=== PATIENT | male | born 1940 | race Caucasian/White ===

== ENCOUNTER 2017-12-23 11:26 | Inpatient (IN) | payer MEDICARE, MEDICAID ==
[2017-12-23 11:33] VITALS: BMI 22.6
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
[2017-12-23 12:30] LABS: BASO # 0.02 K/mm3 (0.0-2.0); BASO % 0.3 % (0.0-3.0); EOS # 0.1 (0.0-0.7); EOS % 1.7 % (1.5-5.0); GRAN # 4.34 (1.4-6.5); GRAN % 72.7 % (50.0-68.0); HEMOGLOBIN 7.5 g/dL (14.0-18.0); LYMPH % 17.3 % (22.0-35.0); MEAN CELL VOLUME 91.2 fl (80.0-105.0); MEAN CORPUSCULAR HEMOGLOBIN 28.8 pg (25.0-35.0); MEAN CORPUSCULAR HGB CONC 31.6 g/dl (31.0-37.0); MEAN PLATELET VOLUME 9.9 fl (7.0-11.0); MONO # 0.5 (0.1-0.6); RBC 2.6 10^6/uL (3.5-6.1); RED CELL DISTRIBUTION WIDTH 14.9 % (11.5-14.5)
--- NOTE | 2017-12-23 12:34 | RAD ---
HISTORY: medical clearance COMPARISON: 05/08/2016 FINDINGS: LUNGS: There is a chronic interstitial infiltrate at the left lung base PLEURA: No significant pleural effusion identified, no pneumothorax apparent. CARDIOVASCULAR: Normal. OSSEOUS STRUCTURES: The right 3rd rib is absent. This could be surgical. Clinical correlation is suggested. If there is no history of surgery a destructive lesion would be the etiology. VISUALIZED UPPER ABDOMEN: Normal. OTHER FINDINGS: None. IMPRESSION: Chronic interstitial infiltrate at the left lung base. Absence of the right 3rd rib. See comment
[2017-12-23 12:39] LABS: ALB/GLOB RATIO 0.8 (1.1-1.8); ALBUMIN 4.1 g/dL (3.0-4.8); ALT/SGPT 21 U/L (7-56); AST/SGOT 28 U/L (17-59); BLOOD UREA NITROGEN 34 mg/dL (7-21); CALCIUM 10.5 mg/dL (8.4-10.5); GFR AFRICAN-AMERICAN > 60; GFR NON-AFRICAN AMERICAN > 60
[2017-12-23 12:46] LABS: ACETAMINOPHEN < 10.0 ug/ml (10.0-20.0); SALICYLATE < 1 mg/dL (2.0-20.0)
[2017-12-23 12:57] LABS: B-TYPE NATRIURETIC PEPTIDE 971 pg/mL (0-450)
--- NOTE | 2017-12-23 12:59 | CT ---
PROCEDURE: CT HEAD WITHOUT CONTRAST. HISTORY: confusion COMPARISON: CT 05/08/2016 TECHNIQUE: Axial computed tomography images were obtained through the head/brain without intravenous contrast. Radiation dose: Total exam DLP = 873 mGy-cm. This CT exam was performed using one or more of the following dose reduction techniques: Automated exposure control, adjustment of the mA and/or kV according to patient size, and/or use of iterative reconstruction technique. FINDINGS: HEMORRHAGE: No intracranial hemorrhage. BRAIN: No mass effect or edema. There is encephalomalacia in the right occipital lobe and right frontal lobe. No acute findings VENTRICLES: Unremarkable. No hydrocephalus. CALVARIUM: There is bony destruction on the right side of the clivus at the level of the foramen magnum. This is best seen on image 2 of series 3. Small well-defined lytic lesions are seen in the skull bilaterally. Findings are consistent with metastatic disease or myeloma. The patient also had a chest x-ray which showed destruction of the right 3rd rib. PARANASAL SINUSES: Unremarkable as visualized. No significant inflammatory changes. MASTOID AIR CELLS: Unremarkable as visualized. No inflammatory changes. OTHER FINDINGS: None. IMPRESSION: Lytic lesions in the skull consistent with metastatic disease or myeloma. The largest lesion is seen on the right side of the foramen magnum. No acute intracranial findings
[2017-12-23 14:07] LABS: URINE BILIRUBIN NEGATIVE (NEGATIVE); URINE BLOOD NEGATIVE (NEGATIVE); URINE GLUCOSE (UA) NEGATIVE (NEGATIVE); URINE LEUKOCYTE ESTERASE NEGATIVE Leu/uL (NEGATIVE); URINE PROTEIN 30 mg/dL (<30 mg/dL); URINE UROBILINOGEN 0.2 E.U./dL (<1 E.U./dL)
[2017-12-23 14:12] LABS: URINE APPEARANCE CLOUDY (CLEAR); URINE COLOR YELLOW (YELLOW)
[2017-12-23 14:16] LABS: URINE BACTERIA TRACE (NEG); URINE EPITHELIAL CELLS 0 - 2 /hpf (0-5); URINE RBC NEGATIVE /hpf (0-2); URINE WBC 0 - 2 /hpf (0-6)
[2017-12-23 14:17] LABS: URINE COARSE GRANULAR CAST TRACE /hpf (0-2)
[2017-12-23 14:28] LABS: BARBITURATES, UR NEGATIVE (NEGATIVE); BENZODIAZEPINES, UR NEGATIVE (NEGATIVE); OPIATES, UR NEGATIVE (NEGATIVE); PHENCYCLIDINE, UR NEGATIVE (NEGATIVE)
[2017-12-23] MEDS ORDERED: Fluticasone Nasal 50 mcg/Spray NS PRN (17:37)
[2017-12-23] MEDS: cefTRIAXone 1 gm 1 GM/100 ML BAG IVPB SCH (18:37)
[2017-12-23] MEDS: Azithromycin 500MG/NS 250ml 500 MG/250 ML BAG IVPB SCH (19:16)
--- NOTE | 2017-12-23 20:50 | CARD ---
APPROVED REPORT EKG Measurement Heart [id number] <Conclusion> Atrial fibrillation with a competing junctional pacemaker Right bundle branch block Abnormal ECG
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
[2017-12-23] MEDS: Insulin Reg-HIGH-Coverage SC SCH (23:54)
[2017-12-24 07:41] LABS: HEMOGLOBIN 9.2 g/dL (14.0-18.0); MEAN CELL VOLUME 90.7 fl (80.0-105.0); MEAN CORPUSCULAR HEMOGLOBIN 29.4 pg (25.0-35.0); MEAN CORPUSCULAR HGB CONC 32.4 g/dl (31.0-37.0); MEAN PLATELET VOLUME 10.3 fl (7.0-11.0); RBC 3.13 10^6/uL (3.5-6.1); WHITE BLOOD COUNT 4.6 10^3/ul (4.5-11.0)
[2017-12-24] MEDS: Metoprolol Succinate 100 mg XL Tab PO SCH (07:44)
[2017-12-24] MEDS: Insulin Reg-HIGH-Coverage SC SCH ×4 (07:46→22:52)
[2017-12-24 07:55] LABS: ALB/GLOB RATIO 0.8 (1.1-1.8); ALBUMIN 3.7 g/dL (3.0-4.8); ALT/SGPT 23 U/L (7-56); AST/SGOT 27 U/L (17-59); BLOOD UREA NITROGEN 29 mg/dL (7-21); CALCIUM 10.2 mg/dL (8.4-10.5); GFR AFRICAN-AMERICAN > 60; GFR NON-AFRICAN AMERICAN > 60
[2017-12-24] MEDS: cefTRIAXone 1 gm 1 GM/100 ML BAG IVPB SCH (09:12)
[2017-12-24] MEDS: Azithromycin 500MG/NS 250ml 500 MG/250 ML BAG IVPB SCH (10:04)
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
[2017-12-24 12:23] LABS: IRON 65 ug/dL (45-180)
[2017-12-24 12:27] LABS: IMMUNOGLOBULIN G 581.8 mg/dL (700.0-1600.0); IMMUNOGLOBULIN M 43.2 mg/dL (40.0-230.0)
[2017-12-24 12:32] LABS: % IRON SATURATION 23 % (20-55); TOTAL IRON BINDING CAPACITY 277 ug/dL (261-462)
--- NOTE | 2017-12-24 13:38 | PN ---
DATE: ONCOLOGY EVALUATION SUBJECTIVE: This is a 77-year-old man with altered mental status and lytic lesions in his clavicle and CAT scan of his skull as well as third rib erosion. The issue here is most likely prostate cancer versus multiple myeloma with 2 treatable lesions. At this point, I have ordered laboratory tests to rule out multiple myeloma to rule out prostate cancer. Pending bone marrow biopsy on him and further treatments. I did a blood test today . Rolando Wilhelm MD
--- NOTE | 2017-12-24 14:10 | PN ---
DATE: SUBJECTIVE: I saw him this morning with the nurse. The nurse told me his right shoulder has been bothering him. When I saw him this morning, he had no right shoulder pain, he slept well, he is hungry. He is presently confused. He came in with dementia, trying to get to the psychiatric unit, but he had an anemia of 7.5. We transfused him. I called in GI and also the CAT scan of the head showed possible metastasis from multiple myeloma. I called the Hematology/Oncology before bringing him to the Psych floor. PHYSICAL EXAMINATION: VITAL SIGNS: He has 97.8 temperature, 85 pulse, 141/60 blood pressure, 20 respiratory rate. GENERAL: He is alert in bed, comfortable, no pain at this time. He slept fairly well. HEENT: Head is atraumatic, normocephalic. Throat is moist. NECK: Supple. HEART: Regular rate. LUNGS: Decreased breath sounds, but clear. No coughing. ABDOMEN: Soft. EXTREMITIES: No edema. MEDICATIONS: He is currently on Aricept, aspirin, Colace, Flonase, Glucophage, insulin, Keppra, Lipitor, Neurontin, Norvasc, Risperdal, Rocephin, Toprol, Zestril, and Zithromax. LABORATORY DATA: He has a white count of 4.6, hemoglobin is 9.2, hematocrit, 28.4, platelets of 288. Chemistries, 148 sodium, potassium 4.1, BUN 29, creatinine 1.1, GFR is greater than 60, sugar is 94, calcium is 10.2, total bili is 0.3, AST is 27, ALT is 23 and alkaline phosphatase is 150. His urine was clear. His toxicology was fine. ASSESSMENT AND PLAN: There was no consults yet. There are orders for GI for the anemia, Hematology/Oncology for the metastasis and skull metastasis, multiple myeloma issues, Pulmonary for a possible pneumonia. He is on medications for that, all this before he might go to Psychiatry floor. I will wait and see what the Psychiatry says on the hospital side. Continue aggressive treatment and care of Raudel Simmons, trying him out of bed to chair, get him some physical therapy in the meantime. We will check his labs. Jerzy Walsh DO [facility] # [id number]
[2017-12-24 15:32] LABS: IMMUNOGLOBULIN A > 800.0 mg/dL (70.0-400.0)
--- NOTE | 2017-12-24 15:41 | NM ---
PROCEDURE: Whole Body Bone Scan HISTORY: Metastatic disease. COMPARISON: None available. TECHNIQUE: Following administration of 27.5 miCu of Tc MDP multiplanar whole body images were obtained. FINDINGS: Evidence for bony metastatic disease: Bilateral ribs and solitary focus in the left iliac bone anteriorly. Multiple punctate foci of abnormal accumulation radionuclide in the calvarium better visualized on recent CT scan. Upper thoracic, lower cervical spine abnormalities also identified. Questionable abnormalities both proximal humeri. Degenerative uptake: Bilateral shoulders Physiologic uptake: Normal physiologic activity in the kidneys. Other findings: None. IMPRESSION: Evidence osseous metastatic disease calvarium, ribs, left iliac bone. Suspicious findings lower cervical upper thoracic spine. Additional suspicious findings in proximal humeri bilaterally.
--- NOTE | 2017-12-24 15:56 | CON ---
DATE: 12/24/2017 PULMONARY CONSULTATION REASON FOR CONSULTATION: Abnormal chest x-ray. REFERRING PHYSICIAN: Jerzy Walsh DO HISTORY OF PRESENT ILLNESS: History is obtained via extensive discussion with the night nurse. I have also discussed the case with the patient at length, and reviewed the chart at length. The patient is a 77-year-old male, chronically ill, with past medical history significant for coronary artery disease, status post cardiac stents, chronic atrial fibrillation, cerebrovascular accident in the past, Alzheimer's dementia, diabetes mellitus, who presents to [facility] - [facility] - for increasing confusion and altered behavior. Apparently, the patient did exhibit aggressive behavior at the [facility]. He was thus admitted for additional evaluation. Again, I did discuss the case with the night nurse at length. There is no history of shortness of breath at rest, dyspnea on exertion, cough, or sputum production. There is also no history of chest pain, coughing up of blood, or chest pain - made worse with deep respirations. There is no history of temperatures, chills or infectious exposure. There is no history of night sweats, weight loss or appetite change prior to the above events. No history of calf pains. No history of syncope or diaphoresis. No history of recent travel or trauma. REVIEW OF SYSTEMS: No history of nausea, vomiting or diarrhea. No acute urinary symptoms. No new musculoskeletal complaints. Rest of the review of systems is negative. ALLERGIES: CIPROFLOXACIN. SOCIAL HISTORY: Positive for tobacco and negative for alcohol. FAMILY HISTORY: No inheritable diseases. HOME MEDICATIONS: Include Vasotec, Tylenol, Lantus, Percocet, Flonase, Risperdal, Toprol, Glucophage, Keppra, Neurontin, Aricept, Colace, Lipitor, and Norvasc. PHYSICAL EXAMINATION GENERAL: The patient appears comfortable at rest. He is not short of breath. He seems awake and alert. VITAL SIGNS: Temperature is 97.8, pulse is 85, respirations 18, blood pressure 141/60. Oxygen saturation on room air is 96%-97%. HEENT: Normocephalic, atraumatic. No JVD. CARDIOVASCULAR: Positive S1, S2. No S3 gallop. LUNGS: Clear bilaterally. EXTREMITIES: No clubbing, cyanosis or edema. Calves are nontender to palpation. GI: Abdomen is soft, nontender and nondistended. Bowel sounds are positive. SKIN: No acute rash. NEUROLOGIC: Limited at the present time. PERTINENT LABORATORY DATA: Chest x-ray was done yesterday and reviewed. There is a small patchy infiltrate noted at the left base. However, this infiltrate was noted on the film of 05/08/2016. CBC: White count 6.0K, hemoglobin 7.5, hematocrit 23.7, platelets of 343,000. Complete metabolic profile: BUN 34, glucose 124, alkaline phosphatase 167. B-type natriuretic peptide 971. Total protein 9.0. Rest of the metabolic profiles within normal limits. CAT scan of the head was also done. The report was reviewed. There are lytic lesions in the skull consistent with metastatic disease or myeloma. There are no acute intracranial findings. IMPRESSION: 1. Encephalopathy. 2. Severe anemia. 3. Rule out multiple myeloma. 4. Abnormal chest x-ray, rule out pneumonia, left lower lobe. 5. Atrial fibrillation. 6. Coronary artery disease. PLAN: The patient presents to [facility] - [facility] - with increasing confusion and aggressive behavior. The patient was thus admitted for additional evaluation. I did review the chest x-ray as above. The chest x-ray does show a small patchy left lower lobe infiltrate. However, again, this infiltrate was seen on the chest x-ray in 2016. In addition, there is no history of significant pulmonary symptoms. Again, I did discuss the case with the night nurse at length. The night nurse also does not note any shortness of breath or cough for this patient-- during his shift. The patient has been started on antibiotic therapy. I have ordered a stat procalcitonin - to try and discern whether we are dealing with an acute pneumonia or not. Consultations for Gastroenterology and Hematology have been ordered. Severe anemia is noted. There is a question of multiple myeloma - given the above CAT scan of the head. The clinical status of this patient is certainly guarded at this point in time. Additional pulmonary intervention will be based on the above results, as well as the clinical status of the patient. I will discuss the above with Dr. Walsh this morning. Thank you very much for this pulmonary consultation. Jose Leroy MD MTDRad[facility]
[2017-12-24 17:38] LABS: FOLATE 8.2 ng/mL
--- NOTE | 2017-12-25 00:39 | CON ---
DATE: HISTORY OF PRESENT ILLNESS: The patient is a 77-year-old male. The patient is a resident of [facility]. The patient was transferred here to the hospital for evaluation of altered mental status and psychosis. The patient had history of dementia. Psych consult was called for evaluation of paranoia as well as agitated behavior. The patient was seen and examined today. The patient is Vietnamese speaking and this ad copy writer utilized nursing staff for translation. The patient presented to be alert. The patient does not know what hospital he is in. The patient does not know what is the day today. The patient reported that he was transferred here because he was combative. When was asked why he was combative, the patient said that custodial staff is killing people as well as stealing money from them. There is no evidence for that fact. Most likely, the patient is paranoid and delusional. The patient denied history of mental illness, but the patient had one admission in [address] Salazar's service for psychosis and dementia. The patient was on BuSpar as well as Neurontin and Risperdal 0.25 mg twice a day. MEDICATIONS: Reviewed. Norvasc, aspirin, Lipitor. The patient is on azithromycin, ceftriaxone, Colace, Aricept 5 mg at the nighttime, Flonase, Neurontin, Humulin, Keppra 500 mg twice a day, lisinopril, Glucophage, Toprol, Risperdal 0.5 mg twice a day which will be increased to 3 times a day. LABORATORY DATA: Reviewed. Hemoglobin and hematocrit are 9.2 and 28. Chemistry reviewed, chloride 109, BUN 29 which is high. Urinalysis showed granular cast trace, ketone trace and urine protein high. Toxicology reviewed, negative for any substances. Immunoglobulin G is 581, which is low. CT scan of the head was done in the emergency room which showed metastatic disease or myeloma; the largest lesion seen on the right side of the foramen magnum. Chest x-ray was within normal limits. Electrocardiogram was within normal limits. MENTAL STATUS EXAMINATION: The patient presented to be alert, verbal, Vietnamese-speaking. The patient described his mood as, "okay. I'm fine. I want to go home. I am able to pay my bills and I have home health aide." Affect was irritable. Thought process circumstantial. Thought content, the patient was obviously paranoid. The patient was making statements such as staff in custodial killing people and stealing from them. There is no evidence for that. The patient denied thoughts of harming himself or others. Denies intent or plan. There is no behavioral disturbances. IMPRESSION: Most likely the patient is in delirium stage which is related to the medical issues. On top of that, the patient was diagnosed with dementia with behavioral disturbances and psychotic symptoms. PLAN: Continue current management. Continue current medications. This ad copy writer increased the dose of Risperdal to three times a day. The patient has public guardian who needs to be informed about all possible procedures. Meanwhile, continue current medications. We will follow up and advise accordingly. Thank you very much for letting me participate in care of your patient. Shantell Villarreal MD
--- NOTE | 2017-12-25 01:59 | CON ---
HISTORY OF PRESENT ILLNESS: This is a 77-year-old [place], who was brought here because he was combative, confused, and has dementia and called to evaluate the patient. Patient was sitting comfortably on the chair, not agitated at the movement. Patient was also given 2 units of PRBC transfusions and tolerated the solid food. PAST MEDICAL HISTORY: Dementia, stroke, and acute anemia. ALLERGIES: ALLERGIC TO CIPROFLOXACIN. REVIEW OF SYSTEMS: Patient was confused, agitated at times. PHYSICAL EXAMINATION: VITAL SIGNS: Blood pressure 128/59. HEENT: Normocephalic, atraumatic. NECK: Supple. NEUROLOGIC: Awake, oriented to self, confused. Pupils reactive. No facial asymmetry. Tongue midline. Motor examination: Spontaneous movement of the extremities noted. Deep tendon reflexes 1+. Both plantars downgoing. LABORATORY DATA: WBC 4.6, hemoglobin 9.2, hematocrit 28.4, platelets 288. Sodium 148, potassium 4.1, chloride 109, CO2 of 25, glucose 94, BUN 29, creatinine 1.1. IMPRESSION: This is a 77-year-old male with acute anemia and also lytic metastatic lesion on the head and no lesions in the brain and workup in progress and continue present management. We will follow up. Salvador Wang MD
[2017-12-25 07:25] LABS: HEMOGLOBIN 9.4 g/dL (14.0-18.0); MEAN CELL VOLUME 89.8 fl (80.0-105.0); MEAN CORPUSCULAR HEMOGLOBIN 29.2 pg (25.0-35.0); MEAN CORPUSCULAR HGB CONC 32.5 g/dl (31.0-37.0); MEAN PLATELET VOLUME 10.5 fl (7.0-11.0); RBC 3.22 10^6/uL (3.5-6.1)
[2017-12-25 07:34] LABS: ALB/GLOB RATIO 0.8 (1.1-1.8); ALBUMIN 3.6 g/dL (3.0-4.8); ALT/SGPT 25 U/L (7-56); AST/SGOT 26 U/L (17-59); BLOOD UREA NITROGEN 27 mg/dL (7-21); CALCIUM 10.2 mg/dL (8.4-10.5); GFR AFRICAN-AMERICAN > 60; GFR NON-AFRICAN AMERICAN > 60
[2017-12-25] MEDS: Insulin Reg-HIGH-Coverage SC SCH (08:01)
--- NOTE | 2017-12-25 08:14 | CP.PCM.PN ---
<SavannahdarryndereckCody - Last Filed: 12/25/17 08:59> Subjective - Date & Time of Evaluation Date of Evaluation: 12/25/17 Time of Evaluation: 07:30 - Subjective Subjective: PGY5 GI Fellow Progress Note Patient seen and examined bedside this morning. The patient was sleeping on arrival to the bedside and is drowsy but arousable. He will not follow any commands at this time and does not participate in conversation/answer questions in Yoruba or Irish. No events overnight per nursing staff. 12 system ROS performed and negative except where stated. Objective - Vital Signs/Intake and Output Vital Signs (last 24 hours): Temp Pulse Resp BP Pulse Ox 98.3 F 56 L 18 125/98 H 96 12/24/17 22:00 12/24/17 22:00 12/24/17 22:00 12/24/17 22:00 12/24/17 22:00 Intake and Output: 12/25/17 12/25/17 06:59 18:59 Intake Total 660 Output Total 800 Balance -140 - Medications Medications: Current Medications Amlodipine Besylate (Norvasc) 10 mg PO DAILY [facility] Last Admin: 12/24/17 09:19 Dose: 10 mg Aspirin (Aspirin Chewable) 81 mg PO DAILY [facility] Last Admin: 12/24/17 09:18 Dose: 81 mg Atorvastatin Calcium (Lipitor) 40 mg PO DIN [facility] Last Admin: 12/24/17 18:53 Dose: 40 mg Azithromycin (Zithromax) 500 mg PO DAILY [facility] Docusate Sodium (Colace) 200 mg PO DAILY [facility] Last Admin: 12/24/17 09:18 Dose: 200 mg Donepezil HCl (Aricept) 5 mg PO HS [facility] Last Admin: 12/24/17 21:23 Dose: 5 mg Fluticasone Propionate (Flonase) 1 actuation NS BID PRN PRN Reason: Cough and congestion Gabapentin (Neurontin) 300 mg PO HS [facility] PRN Reason: Protocol Last Admin: 12/24/17 21:23 Dose: 300 mg Ceftriaxone Sodium (Rocephin 1 Gram Ivpb) 1 gm in 100 mls @ 100 mls/hr IVPB DAILY [facility] PRN Reason: Protocol Stop: 12/27/17 10:59 Last Admin: 12/24/17 09:12 Dose: 100 mls/hr Insulin Human Regular (Humulin R High) 0 units SC ACHS [facility] PRN Reason: Protocol Last Admin: 12/25/17 08:01 Dose: Not Given Levetiracetam (Keppra) 500 mg PO BID [facility] Last Admin: 12/24/17 18:53 Dose: 500 mg Lisinopril (Zestril) 10 mg PO DAILY [facility] Last Admin: 12/24/17 09:19 Dose: 10 mg Metformin HCl (Glucophage) 500 mg PO DAILY [facility] Last Admin: 12/24/17 09:18 Dose: 500 mg Metoprolol Succinate (Toprol Xl) 100 mg PO BRK [facility] Last Admin: 12/24/17 07:44 Dose: 100 mg Risperidone (Risperdal Tab) 0.5 mg PO BID LONG PRN Reason: Protocol Last Admin: 12/24/17 18:54 Dose: 0.5 mg Risperidone (Risperdal Tab) 0.5 mg PO HS [facility] PRN Reason: Protocol - Labs Labs: 12/25/17 07:00 12/25/17 07:00 - Constitutional Appears: Non-toxic, No Acute Distress, Chronically Ill - Eye Exam Eye Exam: PERRL - ENT Exam ENT Exam: Mucous Membranes Dry - Respiratory Exam Respiratory Exam: Clear to Ausculation Bilateral. absent: Rales, Rhonchi, Wheezes - Cardiovascular Exam Cardiovascular Exam: RRR, +S1, +S2 - GI/Abdominal Exam GI & Abdominal Exam: Soft, Normal Bowel Sounds. absent: Distended, Firm, Guarding, Rigid, Tenderness, Organomegaly - Extremities Exam Extremities Exam: Normal Inspection. absent: Pedal Edema - Neurological Exam Neurological Exam: Altered - Psychiatric Exam Psychiatric exam: Flat Affect - Skin Skin Exam: Dry, Warm Assessment and Plan - Assessment and Plan (Free Text) Assessment: Patient is a 77yo male with PMHx significant for Alzheimer's dementia, CAD, prior CVA who presented to the hospital for altered mentation. Our service was consulted for anemia. -Anemia -Delirium with underlying dementia -Lytic bone lesions with concern for underlying malignancy - ongoing w/u for multiple myeloma/prostate cancer Plan: -Ongoing work up with oncology service for multiple myeloma, prostate cancer given previous findings of multiple lytic bone lesions -If identified, underlying malignancy such as MM could be etiology of anemia -No evidence of active GI blood loss and no indication at this time for urgent endoscopic evaluation -If all work up unremarkable, consider EGD/colonoscopy outpatient if consent obtained from responsible republican -Monitor CBC -Diet as tolerated Discussed with Dr Sebastian <Shaun Sebastian - Last Filed: 12/25/17 09:42> Objective - Vital Signs/Intake and Output Vital Signs (last 24 hours): Temp Pulse Resp BP Pulse Ox 98.3 F 59 L 18 134/58 L 96 12/24/17 22:00 12/25/17 08:38 12/24/17 22:00 12/25/17 08:38 12/24/17 22:00 Intake and Output: 12/25/17 12/25/17 06:59 18:59 Intake Total 660 Output Total 800 Balance -140 - Medications Medications: Current Medications Amlodipine Besylate (Norvasc) 10 mg PO DAILY [facility] Last Admin: 12/24/17 09:19 Dose: 10 mg Aspirin (Aspirin Chewable) 81 mg PO DAILY [facility] Last Admin: 12/24/17 09:18 Dose: 81 mg Atorvastatin Calcium (Lipitor) 40 mg PO DIN [facility] Last Admin: 12/24/17 18:53 Dose: 40 mg Azithromycin (Zithromax) 500 mg PO DAILY [facility] Docusate Sodium (Colace) 200 mg PO DAILY [facility] Last Admin: 12/24/17 09:18 Dose: 200 mg Donepezil HCl (Aricept) 5 mg PO HS [facility] Last Admin: 12/24/17 21:23 Dose: 5 mg Fluticasone Propionate (Flonase) 1 actuation NS BID PRN PRN Reason: Cough and congestion Gabapentin (Neurontin) 300 mg PO HS [facility] PRN Reason: Protocol Last Admin: 12/24/17 21:23 Dose: 300 mg Insulin Human Regular (Humulin R High) 0 units SC [facility] PRN Reason: Protocol Last Admin: 12/25/17 08:01 Dose: Not Given Levetiracetam (Keppra) 500 mg PO BID [facility] Last Admin: 12/24/17 18:53 Dose: 500 mg Lisinopril (Zestril) 10 mg PO DAILY [facility] Last Admin: 12/24/17 09:19 Dose: 10 mg Metformin HCl (Glucophage) 500 mg PO DAILY [facility] Last Admin: 12/24/17 09:18 Dose: 500 mg Metoprolol Succinate (Toprol Xl) 100 mg PO BRK [facility] Last Admin: 12/25/17 08:38 Dose: 100 mg Risperidone (Risperdal Tab) 0.5 mg PO BID LONG PRN Reason: Protocol Last Admin: 12/24/17 18:54 Dose: 0.5 mg Risperidone (Risperdal Tab) 0.5 mg PO HS [facility] PRN Reason: Protocol - Labs Labs: 12/25/17 07:00 12/25/17 07:00 Attending/Attestation - Attestation I have personally seen and examined this patient.: Yes I have fully participated in the care of the patient.: Yes I have reviewed all pertinent clinical information, including history, physical exam and plan: Yes Notes (Text): 12/25/17 09:41 77 year old male with h/o Dementia, CVA, CAd admitted with altered mental status , found to have anemia and evidence of bony metastasis. Eval for malignancy underway per Heme/Onc. Hgb stable without evidence of active bleeding at this time. Supportive care. Will monitor for now.
--- NOTE | 2017-12-25 08:36 | PN ---
DATE: 12/25/2017 SUBJECTIVE: The patient appears comfortable this morning. He is not short of breath at rest. PHYSICAL EXAMINATION: VITAL SIGNS: (Last noted in the computer): Temperature is 98.3, pulse 56, respirations 18, blood pressure 125/98. Oxygen saturation on room air is 96%-100%. HEENT: Normocephalic, atraumatic. NECK: No JVD. CARDIOVASCULAR: Positive S1, S2. No S3 gallop. LUNGS: Clear bilaterally. EXTREMITIES: No clubbing, cyanosis or edema. Calves are nontender to palpation. GI: Abdomen is soft, nontender and nondistended. Bowel sounds are positive. SKIN: No acute rash. NEUROLOGIC: Exam limited at the present time. PERTINENT LABORATORY DATA: Procalcitonin was done yesterday, it is negative-0.08. IMPRESSION: 1. Encephalopathy-improved. 2. Severe anemia. 3. Rule out multiple myeloma. 4. Rule out pneumonia left lower lobe-less likely. 5. Atrial fibrillation. 6. Coronary artery disease. PLAN: The patient appears comfortable this morning. He is not short of breath at rest. He does state to feeling better overall. I did discuss the case with the night nurse at length. The night nurse stated that he thinks the patient is less confused. Input by Neurology is noted. I did review the laboratory data-as above. There is a negative procalcitonin noted. In addition, there is no history of temperatures. There is no leukocytosis. We can probably shorten the antibiotic course at this point in time. Inputs by Psychiatry and GI are also noted. Clinical status of the patient appears somewhat improved-compared to the initial hospital status. However, his future status/prognosis remains very guarded. I will discuss the above with Dr. Walsh. <Jose Leroy MD> [email or web address]
[2017-12-25] MEDS: Metoprolol Succinate 100 mg XL Tab PO SCH (08:38)
--- NOTE | 2017-12-25 10:49 | CP.PCM.CON ---
<Amy Sam - Last Filed: 12/25/17 10:49> History of Present Illness - History of Present Illness History of Present Illness: 77 y/o male seen at bedside with attending Dr. Scherer for right foot painful hallux toenail. Pt is unable to give true HPI due to AMS. He indicates that it hurts him when he walks and hurts to touch the nail. States his feet are also very dry and he wants some cream. Has no other pedal complaints at time of visit. Per chart, (-) F/C/N/V/CP/SOB Review of Systems - Review of Systems All systems: reviewed and no additional remarkable complaints except (per HPI) Past Patient History - Infectious Disease Hx of Infectious Diseases: None - Past Medical History & Family History Past Medical History?: Yes - Past Social History Smoking Status: Never Smoked - CARDIAC Other/Comment: cabg - PULMONARY Hx Tuberculosis: No - NEUROLOGICAL Hx Alzheimer's Disease: Yes HX Cerebrovascular Accident: Yes Hx Dementia: Yes - HEENT Hx HEENT Problems: No - RENAL Hx Chronic Kidney Disease: No - ENDOCRINE/METABOLIC Hx Endocrine Disorders: Yes Hx Diabetes Mellitus Type 1: Yes - HEMATOLOGICAL/ONCOLOGICAL Hx Cancer: No - INTEGUMENTARY Hx Dermatological Problems: No - MUSCULOSKELETAL/RHEUMATOLOGICAL Hx Arthritis: Yes Hx Falls: Yes - GASTROINTESTINAL Hx Gastrointestinal Disorders: Yes - GENITOURINARY/GYNECOLOGICAL Hx Sexually Transmitted Disorders: No - PSYCHIATRIC Hx Psychosis: Yes - SURGICAL HISTORY Hx Surgeries: Yes Hx Coronary Stent: Yes - ANESTHESIA Hx Anesthesia: Yes Hx Anesthesia Reactions: No Hx Malignant Hyperthermia: No Meds Home Medications: Home Medication List Medication Instructions Recorded Confirmed Type Azithromycin [Zithromax] 500 mg PO DAILY 5 Days #5 tab 12/25/17 Rx Allergies/Adverse Reactions: Allergies Allergy/AdvReac Type Severity Reaction Status Date / Time ciprofloxacin AdvReac RASH Verified 12/23/17 11:33 - Medications Medications: Current Medications Amlodipine Besylate (Norvasc) 10 mg PO DAILY [facility] Last Admin: 12/24/17 09:19 Dose: 10 mg Aspirin (Aspirin Chewable) 81 mg PO DAILY [facility] Last Admin: 12/24/17 09:18 Dose: 81 mg Atorvastatin Calcium (Lipitor) 40 mg PO DIN [facility] Last Admin: 12/24/17 18:53 Dose: 40 mg Azithromycin (Zithromax) 500 mg PO DAILY [facility] Docusate Sodium (Colace) 200 mg PO DAILY [facility] Last Admin: 12/24/17 09:18 Dose: 200 mg Donepezil HCl (Aricept) 5 mg PO HS [facility] Last Admin: 12/24/17 21:23 Dose: 5 mg Fluticasone Propionate (Flonase) 1 actuation NS BID PRN PRN Reason: Cough and congestion Gabapentin (Neurontin) 300 mg PO HS [facility] PRN Reason: Protocol Last Admin: 12/24/17 21:23 Dose: 300 mg Insulin Human Regular (Humulin R High) 0 units SC ACHS [facility] PRN Reason: Protocol Last Admin: 12/25/17 08:01 Dose: Not Given Levetiracetam (Keppra) 500 mg PO BID [facility] Last Admin: 12/24/17 18:53 Dose: 500 mg Lisinopril (Zestril) 10 mg PO DAILY [facility] Last Admin: 12/24/17 09:19 Dose: 10 mg Metformin HCl (Glucophage) 500 mg PO DAILY [facility] Last Admin: 12/24/17 09:18 Dose: 500 mg Metoprolol Succinate (Toprol Xl) 100 mg PO BRK [facility] Last Admin: 12/25/17 08:38 Dose: 100 mg Risperidone (Risperdal Tab) 0.5 mg PO BID [facility] PRN Reason: Protocol Last Admin: 12/24/17 18:54 Dose: 0.5 mg Risperidone (Risperdal Tab) 0.5 mg PO HS [facility] PRN Reason: Protocol Physical Exam - Constitutional Appears: Well, Non-toxic, No Acute Distress - Extremities Exam Additional comments: Lower extremity focused examination: Vasc: DP/PT pulses palpable 2/4. Temperature gradient warm to cool from proximal to distal. CFT < 3 sec to all digits. No pedal edema Neuro: Protective sensation grossly intact Derm: Thickened dystrophic toenail noted to R hallux with onycholysis noted to proximal and lateral nail borders. Tinea pedis noted to bilateral plantar feet. No open lesions, no erythema, no maceration, no ecchymosis Ortho: Moderate tenderness to palpation of R hallux toenail - Neurological Exam Neurological exam: Alert, Altered - Psychiatric Exam Psychiatric exam: Normal Affect, Normal Mood Results - Vital Signs Recent Vital Signs: Last Vital Signs Temp 98.6 F 12/25/17 08:00 Pulse 59 L 12/25/17 08:38 Resp 18 12/25/17 08:00 BP 134/58 L 12/25/17 08:38 Pulse Ox 100 12/25/17 08:00 - Labs Result Diagrams: 12/25/17 07:00 12/25/17 07:00 Labs: Laboratory Results - last 24 hr 12/24/17 12/24/17 12/24/17 07:00 09:00 09:00 WBC RBC Hgb Hct MCV MCH MCHC RDW Plt Count MPV Sodium Potassium Chloride Carbon Dioxide Anion Gap BUN Creatinine Est GFR ( Amer) Est GFR (Non-Af Amer) POC Glucose (mg/dL) Random Glucose Calcium Iron TIBC % Saturation Total Bilirubin AST ALT Alkaline Phosphatase Total Protein Albumin Globulin Albumin/Globulin Ratio Lqil-2-Hvjybgyvylzua 4.80 H Vitamin B12 Folate Procalcitonin 0.08 L IgG 581.8 L IgA > 800.0 H IgM 43.2 12/24/17 12/24/17 12/24/17 09:00 09:00 11:34 WBC RBC Hgb Hct MCV MCH MCHC RDW Plt Count MPV Sodium Potassium Chloride Carbon Dioxide Anion Gap BUN Creatinine Est GFR ( Amer) Est GFR (Non-Af Amer) POC Glucose (mg/dL) 143 H Random Glucose Calcium Iron 65 TIBC 277 % Saturation 23 Total Bilirubin AST ALT Alkaline Phosphatase Total Protein Albumin Globulin Albumin/Globulin Ratio Jwlo-4-Rwsdlyceweqib Vitamin B12 831 Folate 8.2 Procalcitonin IgG IgA IgM 12/24/17 12/24/17 12/25/17 16:09 21:50 07:00 WBC 5.0 RBC 3.22 L Hgb 9.4 L Hct 28.9 L MCV 89.8 MCH 29.2 MCHC 32.5 RDW 15.0 H Plt Count 294 MPV 10.5 Sodium Potassium Chloride Carbon Dioxide Anion Gap BUN Creatinine Est GFR ( Amer) Est GFR (Non-Af Amer) POC Glucose (mg/dL) 99 122 H Random Glucose Calcium Iron TIBC % Saturation Total Bilirubin AST ALT Alkaline Phosphatase Total Protein Albumin Globulin Albumin/Globulin Ratio Rucj-4-Mtikfndygkpzp Vitamin B12 Folate Procalcitonin IgG IgA IgM 12/25/17 07:00 WBC RBC Hgb Hct MCV MCH MCHC RDW Plt Count MPV Sodium 147 Potassium 4.0 Chloride 109 H Carbon Dioxide 26 Anion Gap 16 BUN 27 H Creatinine 1.1 Est GFR ( Amer) > 60 Est GFR (Non-Af Amer) > 60 POC Glucose (mg/dL) Random Glucose 89 Calcium 10.2 Iron TIBC % Saturation Total Bilirubin 0.3 AST 26 ALT 25 Alkaline Phosphatase 161 H Total Protein 8.4 H Albumin 3.6 Globulin 4.7 Albumin/Globulin Ratio 0.8 L Efdo-0-Rlhqdzrbfthtv Vitamin B12 Folate Procalcitonin IgG IgA IgM Assessment & Plan - Assessment and Plan (Free Text) Assessment: 77 y/o male with 1) painful tinea unguium to R hallux nail and 2) bilateral tinea pedis Plan: Pt seen and evaluated with Dr. Scherer Aseptic debridement of R hallux toenail with sterile nippers Pt tolerated procedure without incident Rx Lotrimin cream to be applied to B/L feet daily Podiatry to sign off at this time Thank you for this consult <Jennifer Scherer - Last Filed: 12/26/17 15:56> Results - Vital Signs Recent Vital Signs: Last Vital Signs Temp 98 F 12/25/17 14:00 Pulse 58 L 12/25/17 14:00 Resp 20 12/25/17 14:00 BP 99/49 L 12/25/17 14:00 Pulse Ox 97 12/25/17 14:00 - Labs Result Diagrams: 12/25/17 07:00 12/25/17 07:00 Labs: Laboratory Results - last 24 hr 12/25/17 12/25/17 06:48 11:06 POC Glucose (mg/dL) 89 145 H Attending/Attestation - Attestation I have personally seen and examined this patient.: Yes I have fully participated in the care of the patient.: Yes I have reviewed all pertinent clinical information: Yes Notes (Text): 12/26/17 15:55 I have seen and evaluated this patient; was present for the procedure with the resident; have reviewed and agree with resident note
[2017-12-25 16:07] VITALS: BP 99/49; PULSE 58; RESP 20; TEMP 98; O2SAT 97
--- NOTE | 2017-12-25 23:02 | PN ---
DATE: SUBJECTIVE: The patient was admitted on the medical side for change in mental status. Consultation was called for evaluation of medications and possible med management. The patient was initially seen yesterday. Please see initial consultation note for more detailed information. This radio news writer increased the dose of Risperdal to three times a day yesterday. As per collateral information from the nursing staff, the patient does not exceeded any aggressive or agitated behavior. The patient is compliant with the medication. The patient was able to eat independently. The patient is pleasant and cooperative. At times, the patient have paranoid ideation, but for example yesterday, the patient had impression that the staff was stealing money from the patient in the shelter. There is no evidence for that. The patient was less paranoid today during the conversation. PHYSICAL EXAMINATION: VITAL SIGNS: Reviewed. LABORATORY DATA: Reviewed. MEDICATIONS: Reviewed. Discussed with the attending, Dr. Walsh today. As per Dr. Walsh, the patient most likely will be medically cleared and transferred back to the nursing facility. There is no contraindication for that. MENTAL STATUS EXAMINATION: The patient was sleepy, easily arousable. The patient is Kinyarwanda speaking. This radio news writer utilized nursing staff for translation. The patient knows that he is in the hospital, but does not remember what is the name of the hospital, aware of the circumstances of his admission. The patient denied feeling anxious, reported feeling upset over the fact that he lives in the shelter. The patient was asking, if it is possible for him to go to the apartment where he used to live. This radio news writer tried her best to explain that it is not an option. At this point, questionable understanding. Of note, the patient has public legal guardian. The patient has no capacity to make decision for himself. Thought process was circumstantial and tangential. Thought content, the patient denied visual, auditory, tactile hallucinations, but patient is mildly paranoid. Insight and judgment seems to be limited. Impulses are well controlled. This radio news writer will and the patient does not exhibit any aggression or agitation, did not require any p.r.n. medications. 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 Most likely, this is combination of 2 factors. PLAN: The patient does not meet the criteria for psychiatric inpatient admission. Mental status is improving. The patient needs to continue on Risperdal three times a day. The patient needs to be followed up with Psychiatry and the shelter facility within 72 hours in case of the worsening of the symptoms. The patient should be transferred back to the hospital. Meanwhile, the patient did not exhibit any aggressive or agitated behavior. At present moment, there was no imminent danger to self or others. The patient was able to eat independently. This radio news writer will sign off. Should you have any questions, give me a call back. Thank you very much for letting me participate in the care of your patient. Shantell Villarreal MD : 12/25/2017 17:28:29
--- NOTE | 2017-12-26 05:13 | DS ---
HISTORY OF PRESENT ILLNESS: He is doing well enough that he can be discharged. 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 He will be followed up in the outpatient with Hematology/Oncology. He is on Aricept, aspirin, Colace, Flonase, Glucophage, insulin, Keppra, Lipitor, Neurontin, Norvasc, Risperdal, Toprol, Zestril, Zithromax. I discussed this with Psychiatry that I do not want him . He is okay as per GI to be discharged, and Oncology said he could be discharged back to his facility. PHYSICAL EXAMINATION: VITAL SIGNS: He has a 98.6 temperature, 59 pulse, 134/58 blood pressure, 18 respiratory rate, and 100% sat on room air. HEENT: Head is atraumatic, normocephalic. HEART: Regular rate. LUNGS: Clear to auscultation. ABDOMEN: Soft. EXTREMITIES: No edema. GENERAL: He is calm. LABORATORY DATA: He has 5 white count, 9.4 hemoglobin, 20.9 hematocrit with 294 platelets. He has 147 sodium, potassium is 4, BUN 27, creatinine 1.1, GFR is greater than 60, sugar is 89, calcium 10.2, total bili is 0.3, AST is 26, ALT is 25, alkaline phosphatase is 161, total protein is 8.4. ASSESSMENT AND PLAN: He is having metastatic bone disease with dementia either from prostate cancer versus multiple myeloma. He has anemia. He was transfused. He was seen by multiple physicians. I am hoping he will do very well. Jerzy Walsh DO MTDRadha
== END 2017-12-25 16:30 | DRG 840 ==
LOC: ED 11:26 → ERH 15:11 → 5RSO 17:23
PROVIDERS: ADMIT Family Medicine; ATTEND Family Medicine
PROC: 30233N1 Transfusion of Nonautologous Red Blood Cells into Peripheral Vein, Percutaneous Approach (ICD-10-PCS; principal; 2017-12-23)
PROC: 0HBRXZZ Excision of Toe Nail, External Approach (ICD-10-PCS; 2017-12-25)
DX: C90.00 Multiple myeloma not having achieved remission (principal); C61 Malignant neoplasm of prostate; D64.9 Anemia, unspecified; G93.40 Encephalopathy, unspecified; F02.81 Dementia in other diseases classified elsewhere, unspecified severity, with behavioral disturbance; I25.10 Atherosclerotic heart disease of native coronary artery without angina pectoris; G30.9 Alzheimer's disease, unspecified; I48.2 Chronic atrial fibrillation; E11.9 Type 2 diabetes mellitus without complications; K59.00 Constipation, unspecified; F25.9 Schizoaffective disorder, unspecified; B35.3 Tinea pedis; B35.1 Tinea unguium; M19.90 Unspecified osteoarthritis, unspecified site; Z86.73 Personal history of transient ischemic attack (TIA), and cerebral infarction without residual deficits; Z95.5 Presence of coronary angioplasty implant and graft; Z95.1 Presence of aortocoronary bypass graft

== ENCOUNTER 2018-03-12 20:41 | Inpatient (IN) | payer MEDICARE, MEDICAID ==
--- NOTE | 2018-03-12 20:48 | ED PDOC ---
Arrival/HPI - General Time Seen by Provider: 03/12/18 20:43 Historian: Patient - History of Present Illness Narrative History of Present Illness (Text): 03/12/18 20:48 Raudel Simmons is a 77 year old male, whose past medical history includes atrial fibrillation, CABG, CAD with coronary stents, Alzheimer's disease, CVA, diabetes, arthritis, and schizoaffective disorder, who presents to the Emergency department sent from shelter for evaluation of lethargy today. Limited HPI and ROS secondary to patient's dementia. Symptom Onset: Gradual Symptom Course: Unchanged Activities at Onset: Light Context: Home Past Medical History - Provider Review Nursing Documentation Reviewed: Yes - Past History Past History: No Previous - Infectious Disease Hx of Infectious Diseases: None - Reproductive Currently Lactating: No - Cardiac Other/Comment: cabg - Pulmonary Hx Tuberculosis: No - Neurological Hx Alzheimer's Disease: Yes HX Cerebrovascular Accident: Yes Hx Dementia: Yes - HEENT Hx HEENT Disorder: No - Renal Hx Renal Disorder: No - Endocrine/Metabolic Hx Endocrine Disorders: Yes Hx Diabetes Mellitus Type 1: Yes - Hematological/Oncological Hx Cancer: No - Integumentary Hx Dermatological Disorder: No - Musculoskeletal/Rheumatological Hx Arthritis: Yes Hx Falls: Yes - Gastrointestinal Hx Gastrointestinal Disorders: Yes - Genitourinary/Gynecological Hx Sexually Transmitted Diseases: No - Psychiatric Hx Psychosis: Yes Hx Substance Use: No (Question) - Surgical History Hx Coronary Stent: Yes - Anesthesia Hx Anesthesia: Yes Hx Anesthesia Reactions: No Hx Malignant Hyperthermia: No - Suicidal Assessment Feels Threatened In Home Enviroment: No Family/Social History - Physician Review Nursing Documentation Reviewed: Yes Family/Social History: Unknown Family HX Smoking Status: Never Smoked Hx Alcohol Use: Yes Hx Substance Use: No (Question) Hx Substance Use Treatment: No Allergies/Home Meds Allergies/Adverse Reactions: Allergies ciprofloxacin Adverse Reaction (Verified 12/23/17 11:33) RASH Home Medications: Home Meds Medication Instructions Recorded Confirmed Insulin Glargine, Recombina 45 unit SC HS 12/07/15 12/23/17 [Lantus] Aspirin [Aspirin Chewable] 81 mg PO DAILY 05/08/16 12/23/17 Enalapril Maleate [Vasotec] 10 mg PO DAILY 05/08/16 12/23/17 Acetaminophen [Tylenol 325mg tab] 325 mg PO Q4 PRN MDD 100.1 12/23/17 12/23/17 Bisacodyl [Fast Relief Laxative] 10 mg RC PRN PRN 12/23/17 12/23/17 Docusate [Colace] 200 mg PO DAILY 12/23/17 12/23/17 Fluticasone Propionate [Flonase] 1 spr NS BID PRN 12/23/17 12/23/17 Gabapentin [Neurontin] 300 mg PO HS 12/23/17 12/23/17 Magnesium Hydroxide [Milk of 30 ml PO DAILY PRN 12/23/17 12/23/17 Magnesia] Metformin HCl [Glucophage] 500 mg PO DAILY 12/23/17 12/23/17 Multivit-Minerals/Folic Acid 0 mg PO DAILY 12/23/17 12/23/17 [Adult One Daily Multivit Tab] Sod Phos,M-B/Na Phos,Di-Ba [Fleet 0 ml RC PRN PRN 12/23/17 12/23/17 Enema] oxyCODONE/Acetaminophen [Percocet 1 tab PO Q6 PRN 12/23/17 12/23/17 5/325 mg Tab] risperiDONE [RisperDAL Tab] 0.5 mg PO BID 12/23/17 12/23/17 Review of Systems - Review of Systems Systems not reviewed;Unavailable: Dementia Physical Exam Vital Signs Temp Pulse Resp BP Pulse Ox 03/13/18 02:09 70 18 116/70 91 L 03/13/18 00:48 79 20 117/69 93 L 03/13/18 00:11 115/56 L 03/12/18 23:05 76 18 133/49 L 96 03/12/18 22:30 61 18 128/63 95 03/12/18 22:27 62 18 130/60 94 L 03/12/18 20:54 98.3 F 58 L 17 108/58 L 87 L Pain Distress: None Mental Status: Positive for: other (Somnolent but arousable) - Systems Exam Head: Present: Atraumatic, Normocephalic Pupils: Present: PERRL Extroacular Muscles: Present: EOMI Conjunctiva: Present: Normal Mouth: Present: Moist Mucous Membranes Neck: Present: Normal Range of Motion. No: Meningeal Signs, MIDLINE TENDERNESS , Paraspinal Tenderness Respiratory/Chest: Present: Clear to Auscultation, Good Air Exchange. No: Respiratory Distress, Accessory Muscle Use Cardiovascular: Present: Regular Rate and Rhythm, Normal S1, S2. No: Murmurs Abdomen: No: Tenderness, Distention, Peritoneal Signs Upper Extremity: Present: Normal Inspection. No: Cyanosis, Edema Lower Extremity: Present: Normal Inspection. No: Edema Neurological: Present: CN II-XII Intact, Speech Normal, Motor Func Grossly Intact, Normal Sensory Function, Other (Drowsy but arousable) Medical Decision Making ED Course and Treatment: 03/12/18 20:48 Impression: 77 year old male sent from shelter for lethargy. Plan: -- EKG -- Chest X-ray -- Labs, VBG, ABG, cardiac enzymes, blood cultures -- Urinalysis, urine cultures -- Lactated Ringer's -- Reassess and disposition Progress Notes: Reviewed EKG, sinus rhythm at 63 bpm. RBBB. 2nd degree AV block, Mobitz 1. 03/12/18 21:32 Pt currently now awake, verbal, answering questions. 03/12/18 23:41 Chest X-ray reviewed, shows: Lungs: Parenchymal density RIGHT apical region. There is interstitial congestion the RIGHT lower lobe.. No consolidation. Pleural space: Unremarkable. No pneumothorax. Heart: Unremarkable. No cardiomegaly. Mediastinum: Unremarkable. Bones/joints: Sternotomy changes IMPRESSION: 1. RIGHT apical parenchymal density 2. Interstitial congestion RIGHT lower lobe. 3. Status post sternotomy 03/12/18 23:[address] Walsh, who is aware and agrees with plan. Accepts pt in to his service. Pt will be admitted to Telemetry for CHF and pneumonia. Requests Dr. Horton and Dr. Leroy on consult. 03/13/18 01:00 ICU consult obtained given pt's multiple underlying condition and labile hemodynamic status. Pt seen by Dr. Arizmendi, commis chef, agrees pt will be upgraded to the ICU for further management. - Critical Care Critical Care Minutes: 30 minutes - Lab Interpretations Lab Results: 03/12/18 20:55 03/12/18 20:55 Lab Results 03/12/18 22:00: NT-Pro-B Natriuret Pep 7990 H 03/12/18 21:49: Urine Color Yellow, Urine Appearance Sl cloudy, Urine pH 6.0, Ur Specific [place] 1.020, Urine Protein 30 H, Urine Glucose (UA) Negative, Urine Ketones Negative, Urine Blood Negative, Urine Nitrate Negative, Urine Bilirubin Negative, Urine Urobilinogen 0.2, Ur Leukocyte Esterase Negative, Urine RBC Negative, Urine WBC Negative, Ur Epithelial Cells 0 - 2, Amorphous Sediment Moderate, Urine Bacteria Trace 03/12/18 21:13: pCO2 31 L, pO2 57.0 L, HCO3 18.8 L, ABG pH 7.39, ABG Total CO2 19.8 L, ABG O2 Saturation 90.9 L, ABG Base Excess -5.1 L, ABG Potassium 6.2 H*, Sodium 141.0, Chloride 111.0 H, Glucose 180 H, Lactate 2.3 H, FiO2 32.0, Arterial Blood Potassium 6.2 H* 03/12/18 20:55: Sodium 146, Chloride 106, Potassium 6.8 H* D, Carbon Dioxide 20 L, Anion Gap 28 H, BUN 91 H, Creatinine 7.0 H, Est GFR ( Amer) 9, Est GFR (Non-Af Amer) 8, Random Glucose 189 H, Calcium 9.7, Phosphorus 7.9 H, Magnesium 2.0, Total Bilirubin 0.3, AST 49, ALT 41, Alkaline Phosphatase 171 H, Lactate Dehydrogenase 523, Total Creatine Kinase 28 L, Troponin I 0.06, Total Protein 9.1 H, Albumin 4.1, Globulin 5.0, Albumin/Globulin Ratio 0.8 L 03/12/18 20:55: pO2 49, VBG pH 7.30 L, VBG pCO2 42.0, VBG HCO3 20.7 L, VBG Total CO2 22.0, VBG O2 Sat (Calc) 84.7 H, VBG Base Excess -5.5 L, VBG Potassium 6.8 H*, Sodium 141.0, Chloride 109.0 H, Glucose 190 H, Lactate 2.3 H, FiO2 21.0 , Venous Blood Potassium 6.8 H* 03/12/18 20:55: PT 14.9 H, INR 1.30 H, APTT 31.9 03/12/18 20:55: WBC 5.4, RBC 2.50 L, Hgb 7.5 L, Hct 23.3 L, MCV 93.2 D, MCH 30.0, MCHC 32.2, RDW 17.6 H, Plt Count 241, MPV 11.0, Gran % 74.8 H, Lymph % ( Auto) 14.2 L, [place] % (Auto) 10.1 H, Eos % (Auto) 0.7 L, Baso % (Auto) 0.2, Gran # 4.06, Lymph # (Auto) 0.8 L, [place] # (Auto) 0.6, Eos # (Auto) 0.0, Baso # (Auto ) 0.01 I have reviewed the lab results: Yes - RAD Interpretation Radiology Orders: 03/12/18 20:55 CHEST PORTABLE [RAD] Stat Monitoring Manager: Radiologist - EKG Interpretation Interpreted by ED Physician: Yes Type: 12 lead EKG - Medication Orders Current Medication Orders: Vancomycin HCl (Vancomycin 1gm) 1 gm in 250 mls @ 167 mls/hr IVPB DAILY LONG PRN Reason: Protocol Cefepime HCl (Maxipime 1gm) 1 gm in 100 mls @ 100 mls/hr IVPB Q24H LONG PRN Reason: Protocol Pantoprazole Sodium (Protonix Inj) 40 mg IVP DAILY LONG Discontinued Medications Albuterol Sulfate (Albuterol 0.5% Inhal Vanessa (2.5 Mg/0.5 Ml) Ud) 10 mg IH STAT STA Stop: 03/12/18 21:34 Last Admin: 03/12/18 21:40 Dose: 10 mg Dextrose (Dextrose 50% Inj) 50 ml IVP ONCE ONE Stop: 03/12/18 21:34 Last Admin: 03/12/18 21:40 Dose: 50 ml IVP Administration Document 03/12/18 21:40 AD (Rec: 03/12/18 22:11 AD [id number]) Charges for Administration # of IVP Administrations 1 Furosemide (Lasix) 40 mg IVP ONCE ONE Stop: 03/12/18 23:43 Last Admin: 03/13/18 00:11 Dose: 40 mg MAR Blood Pressure Document 03/13/18 00:11 AD (Rec: 03/13/18 00:11 AD [id number]) Blood Pressure Blood Pressure (100/60-150/90 mm Hg) 115/56 IVP Administration Document 03/13/18 00:11 AD (Rec: 03/13/18 00:11 AD [id number]) Charges for Administration # of IVP Administrations 1 Lactated Ringer's 2,310 ml/ IV (SUPPLIES) 2,310 mls @ 4,626.66 mls/hr IV ONCE ONE PRN Reason: 60 ML/KG/HR Stop: 03/12/18 20:58 Last Admin: 03/12/18 21:00 Dose: 4,626.66 mls/hr eMAR Start Stop Document 03/12/18 21:00 AD (Rec: 03/12/18 21:31 AD [id number]) Intravenous Solution Start Date 03/12/18 Start Time 21:00 Cefepime HCl (Maxipime 1gm) 1 gm in 100 mls @ 100 mls/hr IVPB ONCE ONE PRN Reason: Protocol Stop: 03/14/18 00:43 Azithromycin (Zithromax 500mg In Ns) 500 mg in 250 mls @ 166.667 mls/hr IV STAT STA PRN Reason: Protocol Stop: 03/13/18 01:31 Last Admin: 03/13/18 01:17 Dose: 166.667 mls/hr eMAR Start Stop Document 03/13/18 01:17 AD (Rec: 03/13/18 01:17 AD [id number]) Intravenous Solution Start Date 03/13/18 Start Time 01:17 Cefepime HCl (Maxipime 1gm) 1 gm in 100 mls @ 100 mls/hr IVPB ONCE ONE PRN Reason: Protocol Stop: 03/13/18 01:07 Last Admin: 03/13/18 00:22 Dose: 100 mls/hr eMAR Start Stop Document 03/13/18 00:22 AD (Rec: 03/13/18 00:22 AD [id number]) Intravenous Solution Start Date 03/13/18 Start Time 00:22 Insulin Human Regular (Humulin R) 10 units IVP STAT STA Stop: 03/12/18 21:34 Last Admin: 03/12/18 21:40 Dose: 10 u MAR Blood Glucose Document 03/12/18 21:40 AD (Rec: 03/12/18 22:11 AD [id number]) Blood Glucose Finger Stick Blood Glucose (70-120) 196 IVP Administration Document 03/12/18 21:40 AD (Rec: 03/12/18 22:11 AD [id number]) Charges for Administration # of IVP Administrations 1 Sodium Bicarbonate (Sodium Bicarbonate 8.4% (50 Meq) Syringe) 50 meq IVP ONCE ONE Stop: 03/12/18 21:34 Last Admin: 03/12/18 21:40 Dose: 50 meq IVP Administration Document 03/12/18 21:40 AD (Rec: 03/12/18 22:10 AD [id number]) Charges for Administration # of IVP Administrations 1 Sodium Polystyrene Sulfonate (Kayexalate Susp) 30 gm PO ONCE ONE Stop: 03/12/18 21:34 Last Admin: 03/12/18 21:40 Dose: - Scribe Statement The provider has reviewed the documentation as recorded by the Scribrm Partida All medical record entries made by the Scribe were at my direction and personally dictated by me. I have reviewed the chart and agree that the record accurately reflects my personal performance of the history, physical exam, medical decision making, and the department course for this patient. I have also personally directed, reviewed, and agree with the discharge instructions and disposition. Disposition/Present on Arrival - Present on Arrival Any Indicators Present on Arrival: No History of DVT/PE: No History of Uncontrolled Diabetes: No Urinary Catheter: No History Surgical Site Infection Following: None - Disposition Have Diagnosis and Disposition been Completed?: Yes Diagnosis: CHF (congestive heart failure), Pneumonia, Hyperkalemia, Renal failure Disposition: HOSPITALIZED Disposition Time: 23:45 Patient Plan: Admission Patient Problems: Current Active Problems Problem Status Onset CHF (congestive heart failure) Acute Hyperkalemia Acute Pneumonia Acute Renal failure Acute Condition: STABLE
[2018-03-12 21:10] LABS: BASO # 0.01 K/mm3 (0.0-2.0); BASO % 0.2 % (0.0-3.0); EOS % 0.7 % (1.5-5.0); GRAN # 4.06 (1.4-6.5); GRAN % 74.8 % (50.0-68.0); HEMOGLOBIN 7.5 g/dL (14.0-18.0); LYMPH # 0.8 (1.2-3.4); LYMPH % 14.2 % (22.0-35.0); MEAN CELL VOLUME 93.2 fl (80.0-105.0); MEAN CORPUSCULAR HGB CONC 32.2 g/dl (31.0-37.0); MONO # 0.6 (0.1-0.6); MONO % 10.1 % (1.0-6.0); RBC 2.5 10^6/uL (3.5-6.1); RED CELL DISTRIBUTION WIDTH 17.6 % (11.5-14.5); WHITE BLOOD COUNT 5.4 10^3/ul (4.5-11.0)
[2018-03-12 21:12] LABS: VENOUS BLOOD GAS BASE EXCESS -5.5 mmol/L (0.0-2.0); VENOUS BLOOD GAS PO2 49 mm/Hg (30-55)
[2018-03-12 21:16] LABS: ARTERIAL BLOOD GAS HCO3 18.8 mmol/L (21-28); ARTERIAL BLOOD GAS O2 SAT 90.9 % (95-98); ARTERIAL BLOOD GAS PCO2 31 mm/Hg (35-45); ARTERIAL BLOOD GAS PH 7.39 (7.35-7.45); ARTERIAL BLOOD GAS TCO2 19.8 mmol.L (22-28)
[2018-03-12 21:29] LABS: INR 1.3 (0.93-1.08); PROTHROMBIN TIME 14.9 SECONDS (9.4-12.5)
[2018-03-12 21:30] LABS: PARTIAL THROMBOPLASTIN TIME 31.9 Seconds (25.1-36.5); TROPONIN I 0.06 ng/mL
[2018-03-12 21:31] LABS: ALB/GLOB RATIO 0.8 (1.1-1.8); ALBUMIN 4.1 g/dL (3.0-4.8); CALCIUM 9.7 mg/dL (8.4-10.5)
[2018-03-12] MEDS ORDERED: Dextrose 50% SYRINGE Inj (50 ml) IVP ONE (21:33)
[2018-03-12] MEDS ORDERED: Sodium Bicarbonate (8.4%) 50 Meq Syringe IVP ONE (21:33)
[2018-03-12] MEDS ORDERED: Insulin Regular 1 UNITS/0.01 ML ML IVP STA (21:33)
[2018-03-12] MEDS ORDERED: Albuterol 0.5% Inhal Sol (2.5 mg/0.5 ml) UD IH STA (21:33)
[2018-03-12] MEDS ORDERED: Sod Polystyrene Sulf 15 gm/60 ml Susp PO ONE (21:33)
[2018-03-12 21:53] LABS: URINE BILIRUBIN NEGATIVE (NEGATIVE); URINE BLOOD NEGATIVE (NEGATIVE); URINE GLUCOSE (UA) NEGATIVE (NEGATIVE); URINE LEUKOCYTE ESTERASE NEGATIVE Leu/uL (NEGATIVE); URINE PROTEIN 30 mg/dL (<30 mg/dL); URINE UROBILINOGEN 0.2 E.U./dL (<1 E.U./dL)
[2018-03-12 22:06] LABS: URINE APPEARANCE SL CLOUDY (CLEAR); URINE COLOR YELLOW (YELLOW)
[2018-03-12 22:09] LABS: URINE AMORPHOUS SEDIMENT MODERATE; URINE BACTERIA TRACE (NEG); URINE EPITHELIAL CELLS 0 - 2 /hpf (0-5); URINE RBC NEGATIVE /hpf (0-2); URINE WBC NEGATIVE /hpf (0-6)
[2018-03-13] MEDS ORDERED: Azithromycin 500MG/NS 250ml 500 MG/250 ML BAG IV STA (00:02)
[2018-03-13] MEDS ORDERED: Cefepime 1gm in NS 100ml 1 GM/100 ML BAG IVPB ONE ×2 (00:08→23:44)
[2018-03-13 00:34] LABS: VENOUS BLOOD GAS BASE EXCESS -4.6 mmol/L (0.0-2.0); VENOUS BLOOD GAS PO2 44 mm/Hg (30-55); VENOUS BLOOD PH 7.29 (7.32-7.43)
--- NOTE | 2018-03-13 01:23 | CP.PCM.CON ---
<Rodrigue Cisneros - Last Filed: 03/13/18 02:05> History of Present Illness - History of Present Illness History of Present Illness: PGY-1 Critical Care Consult Note for Dr. Arizmendi This is a 77 year old male with PMHx CAD s/p CABG, Alzheimer's disease, psychosis, malignancy with mets to the bone (likely multiple myeloma) who presents from [facility] for lethargy and fluctuating oxygenation saturation per triage note. Patient has advanced dementia and is unable to answer many questions. He is only oriented to person. He came into the ED where he was given 2.5 liters of IV fluids and then diuresed with Lasix. He was also given Albuterol, Kayexcelate, insulin 10 units IV, amp of D50, amp of Bicarb. PMHx: CAD s/p CABG, Alzheimer's disease, psychosis, malignancy with mets to the bone (likely multiple myeloma) PSHx: CABG Allergies: Cipro Social: From [facility]. Has a public guardian. Family Hx: unknown Review of Systems - Review of Systems Systems not reviewed;Unavailable: Dementia Past Patient History - Infectious Disease Hx of Infectious Diseases: None - Past Medical History & Family History Past Medical History?: Yes - Past Social History Smoking Status: Never Smoked - CARDIAC Other/Comment: cabg - PULMONARY Hx Tuberculosis: No - NEUROLOGICAL Hx Alzheimer's Disease: Yes HX Cerebrovascular Accident: Yes Hx Dementia: Yes - HEENT Hx HEENT Problems: No - RENAL Hx Chronic Kidney Disease: No - ENDOCRINE/METABOLIC Hx Endocrine Disorders: Yes Hx Diabetes Mellitus Type 1: Yes - HEMATOLOGICAL/ONCOLOGICAL Hx Cancer: No - INTEGUMENTARY Hx Dermatological Problems: No - MUSCULOSKELETAL/RHEUMATOLOGICAL Hx Arthritis: Yes Hx Falls: Yes - GASTROINTESTINAL Hx Gastrointestinal Disorders: Yes - GENITOURINARY/GYNECOLOGICAL Hx Sexually Transmitted Disorders: No - PSYCHIATRIC Hx Psychosis: Yes Hx Substance Use: No (Question) - SURGICAL HISTORY Hx Coronary Stent: Yes - ANESTHESIA Hx Anesthesia: Yes Hx Anesthesia Reactions: No Hx Malignant Hyperthermia: No Meds Allergies/Adverse Reactions: Allergies Allergy/AdvReac Type Severity Reaction Status Date / Time ciprofloxacin AdvReac RASH Verified 12/23/17 11:33 - Medications Medications: Current Medications Azithromycin (Zithromax 500mg In Ns) 500 mg in 250 mls @ 166.667 mls/hr IV STAT STA PRN Reason: Protocol Stop: 03/13/18 01:31 Last Admin: 03/13/18 01:17 Dose: 166.667 mls/hr Vancomycin HCl (Vancomycin 1gm) 1 gm in 250 mls @ 167 mls/hr IVPB DAILY LONG PRN Reason: Protocol Cefepime HCl (Maxipime 1gm) 1 gm in 100 mls @ 100 mls/hr IVPB Q24H LONG PRN Reason: Protocol Pantoprazole Sodium (Protonix Inj) 40 mg IVP DAILY LONG Physical Exam - Constitutional Appears: No Acute Distress, Chronically Ill - Head Exam Head Exam: ATRAUMATIC, NORMOCEPHALIC - Eye Exam Eye Exam: Normal appearance - ENT Exam ENT Exam: Mucous Membranes Dry - Respiratory Exam Respiratory Exam: Rales (bilateral). absent: Rhonchi, Wheezes - Cardiovascular Exam Cardiovascular Exam: REGULAR RHYTHM, +S1, +S2 - GI/Abdominal Exam GI & Abdominal Exam: Normal Bowel Sounds, Soft. absent: Tenderness - Extremities Exam Extremities exam: Negative for: pedal edema - Neurological Exam Neurological exam: Altered Additional comments: Oriented to person only Difficulty in following directions - Skin Skin Exam: Dry, Warm Results - Vital Signs Recent Vital Signs: Last Vital Signs Temp 98.3 F 03/12/18 20:54 Pulse 79 03/13/18 00:48 Resp 20 03/13/18 00:48 BP 117/69 03/13/18 00:48 Pulse Ox 93 L 03/13/18 00:48 - Labs Result Diagrams: 03/12/18 20:55 03/13/18 01:15 Labs: Laboratory Results - last 24 hr 03/13/18 00:21 pO2 44 VBG pH 7.29 L VBG pCO2 46.0 VBG HCO3 22.1 VBG Total CO2 23.5 VBG O2 Sat (Calc) 79.0 H VBG Base Excess -4.6 L VBG Potassium 5.5 H Sodium 142.0 Chloride 110.0 H Glucose 93 Lactate 2.2 H FiO2 21.0 Venous Blood Potassium 5.5 H Assessment & Plan - Assessment and Plan (Free Text) Assessment: This is a 77 year old male with PMHx CAD s/p CABG, Alzheimer's disease, psychosis, malignancy with mets to the bone (likely multiple myeloma) who presents from [facility] for lethargy and fluctuating oxygenation saturation per triage note. Plan: Neurological -Awake, lethargic, demented, intermittently verbal -Head CT ordered Cardiology -Monitor for hypotension -was given 2.5 liters of fluids in the ED -was given Lasix 40 mg IV in the ED. Another 40 mg was ordered. Pulmonology -Maintain oxygenation with nasal cannula and switch to non-rebreather mask prn Gastroenterology -NPO until swallow evaluation -Protonix IVP Renal -acute renal failure -could be due to dehydration vs multiple myeloma amongst other differentials -Nephrology consulted Endocrine -Maintain blood glucose 140-180 Infectious Disease -Given Cefepime and Azithromycin in the ED -Ordered for Vancomycin and Cefepime -procalcitonin ordered Prophylaxis -Protonix -If no bleeding on head CT, will start Heparin SC Discussed with Dr. Kyleigh Cisneros PGY-1 <Kyleigh CEDENO,Domingo - Last Filed: 03/13/18 06:14> Meds - Medications Medications: Current Medications Furosemide (Lasix) 40 mg IVP Q12 LONG Vancomycin HCl (Vancomycin 1gm) 1 gm in 250 mls @ 167 mls/hr IVPB DAILY LONG PRN Reason: Protocol Last Admin: 03/13/18 03:30 Dose: 167 mls/hr Cefepime HCl (Maxipime 1gm) 1 gm in 100 mls @ 100 mls/hr IVPB Q24H LONG PRN Reason: Protocol Pantoprazole Sodium (Protonix Inj) 40 mg IVP DAILY [facility] Results - Vital Signs Recent Vital Signs: Last Vital Signs Temp 98.2 F 03/13/18 04:00 Pulse 66 03/13/18 03:45 Resp 20 03/13/18 03:45 BP 122/48 L 03/13/18 03:45 Pulse Ox 92 L 03/13/18 03:15 - Labs Result Diagrams: 03/12/18 20:55 03/13/18 01:15 Labs: Laboratory Results - last 24 hr 03/13/18 03/13/18 03/13/18 00:21 01:15 05:00 pCO2 34 L pO2 44 106.0 H HCO3 19.7 L ABG pH 7.37 ABG Total CO2 20.7 L ABG O2 Saturation 98.3 H ABG Base Excess -4.8 L ABG Potassium 5.4 H VBG pH 7.29 L VBG pCO2 46.0 VBG HCO3 22.1 VBG Total CO2 23.5 VBG O2 Sat (Calc) 79.0 H VBG Base Excess -4.6 L VBG Potassium 5.5 H Sodium 142.0 148 141.0 Chloride 110.0 H 107 109.0 H Glucose 93 95 Lactate 2.2 H 0.9 FiO2 21.0 100.0 Potassium 5.5 H Carbon Dioxide 22 Anion Gap 24 H BUN 88 H Creatinine 6.7 H Est GFR ( Amer) 10 Est GFR (Non-Af Amer) 8 Random Glucose 102 Calcium 9.4 Arterial Blood Potassium 5.4 H Venous Blood Potassium 5.5 H Attending/Attestation - Attestation I have personally seen and examined this patient.: Yes I have fully participated in the care of the patient.: Yes I have reviewed all pertinent clinical information: Yes Notes (Text): -I agree with the above ICU consult completed by the resident physician with the following additions and/or changes: -The patient is a 77 year old retirement resident with a history of CAD (s/p CABG), severe aortic stenosis (PIEDAD=0.93cm3 per 2013 records), Alzheimer's disease and malignancy (likely multiple myeloma), who was sent to the ED from his retirement due to hypoxia and lethargy. In the ED, initially he was found to be hypotensive (SBP=85) and also persistently hypoxia (O2 sat=85% on 4L NC). CXR shows congestion as well as possible pneumonia. He will be admitted to the ICU for hypoxia (likely due to combination of acute CHF exacerbation and pneumonia), hyperkalemia (treated in ED) and BIPIN/uremia. He will be started on IV Lasix (with holding parameters) as well as empiric IV Cefepime and Vanco. Procalcitonin, corrales-cultures and 2D-echo have been ordered. Strict I/Os will be monitored. Cards, Pulmonary and Nephrology consults have been placed. Critical Care Time Spent: 45-60minutes
[2018-03-13 01:44] LABS: CALCIUM 9.4 mg/dL (8.4-10.5)
[2018-03-13] MEDS: Vancomycin 1gm in NS 250ml 1 GM/250 ML BAG IVPB SCH ×2 (03:30→09:02)
[2018-03-13 04:46] VITALS: BMI 24.8
[2018-03-13 05:16] LABS: ARTERIAL BLOOD GAS HCO3 19.7 mmol/L (21-28); ARTERIAL BLOOD GAS O2 SAT 98.3 % (95-98); ARTERIAL BLOOD GAS PCO2 34 mm/Hg (35-45); ARTERIAL BLOOD GAS PH 7.37 (7.35-7.45); ARTERIAL BLOOD GAS TCO2 20.7 mmol.L (22-28)
[2018-03-13 06:37] LABS: BASO # 0.01 K/mm3 (0.0-2.0); BASO % 0.2 % (0.0-3.0); EOS # 0.1 (0.0-0.7); EOS % 1.7 % (1.5-5.0); GRAN # 3.72 (1.4-6.5); GRAN % 70.7 % (50.0-68.0); HEMOGLOBIN 8.6 g/dL (14.0-18.0); LYMPH # 0.8 (1.2-3.4); MEAN CELL VOLUME 92.7 fl (80.0-105.0); MEAN CORPUSCULAR HEMOGLOBIN 30.1 pg (25.0-35.0); MEAN CORPUSCULAR HGB CONC 32.5 g/dl (31.0-37.0); MONO # 0.7 (0.1-0.6); MONO % 12.4 % (1.0-6.0); RBC 2.86 10^6/uL (3.5-6.1); RED CELL DISTRIBUTION WIDTH 17.4 % (11.5-14.5); WHITE BLOOD COUNT 5.3 10^3/ul (4.5-11.0)
[2018-03-13 07:14] LABS: ALB/GLOB RATIO 0.8 (1.1-1.8); ALBUMIN 4.1 g/dL (3.0-4.8); CALCIUM 9.7 mg/dL (8.4-10.5)
[2018-03-13] MEDS ORDERED: Dextrose 50% SYRINGE Inj (50 ml) IVP ONE ×2 (08:01→22:22)
[2018-03-13] MEDS ORDERED: Insulin Regular 1 UNITS/0.01 ML ML IV ONE (08:15)
[2018-03-13] MEDS ORDERED: Albuterol 0.5% Inhal Sol (2.5 mg/0.5 ml) UD IH ONE (08:30)
--- NOTE | 2018-03-13 09:20 | RAD ---
HISTORY: Sepsis Patient COMPARISON: 12/23/2017 FINDINGS: LUNGS: There is destruction or resection of the right 3rd rib. There is an associated soft tissue mass. This was mentioned previously. There is no prior CT for comparison. Minimal interstitial infiltrate at the right lung base PLEURA: No significant pleural effusion identified, no pneumothorax apparent. CARDIOVASCULAR: Normal. OSSEOUS STRUCTURES: No significant abnormalities. VISUALIZED UPPER ABDOMEN: Normal. OTHER FINDINGS: None. IMPRESSION: There is destruction or resection of the right 3rd rib. There is an associated soft tissue mass. This was mentioned previously. There is no prior CT for comparison. Minimal interstitial infiltrate at the right lung base
--- NOTE | 2018-03-13 09:58 | CT ---
PROCEDURE: CT HEAD WITHOUT CONTRAST. HISTORY: rule out bleed COMPARISON: 12/23/2017 TECHNIQUE: Axial computed tomography images were obtained through the head/brain without intravenous contrast. Radiation dose: Total exam DLP = 936 mGy-cm. This CT exam was performed using one or more of the following dose reduction techniques: Automated exposure control, adjustment of the mA and/or kV according to patient size, and/or use of iterative reconstruction technique. FINDINGS: HEMORRHAGE: No intracranial hemorrhage. BRAIN: Old right posterior cerebral artery distribution infarct. Diffuse mild atrophy as well as chronic periventricular white matter ischemic disease. Right sided basal ganglia lacunar infarcts appear chronic. VENTRICLES: Unremarkable. No hydrocephalus. CALVARIUM: Numerous lytic lesions again identified. PARANASAL SINUSES: Stable 20 millimeter polypoid mass versus mucosal thickening in the sphenoid sinus. MASTOID AIR CELLS: Unremarkable as visualized. No inflammatory changes. OTHER FINDINGS: None. IMPRESSION: No acute hemorrhage.
[2018-03-13] MEDS ORDERED: Dextrose 5%/Lactated Ringer's 1,000 ML IV SCH (10:00)
[2018-03-13] MEDS ORDERED: Lactated Ringer's 1,000 ML IV SCH (10:00)
[2018-03-13] MEDS ORDERED: Sodium Chloride 0.9% 1,000 ML IV STA (10:08)
[2018-03-13] MEDS ORDERED: Sodium Chloride 0.9% 1,000 ML IV SCH (10:15)
--- NOTE | 2018-03-13 10:20 | CP.CCUPN ---
<Antonietta Chu - Last Filed: 03/13/18 11:20> CCU Subjective - Physician Review Subjective (Free Text): 03/13/18 10:20 Overnight, pt keeps taking O2 off per RN, desat. then belligerant and combative requriing wirst restraints. Pt is lethargic, arousable by to noxious stimuli This AM, he was lethargic, open eyes to noxious stimuli CCU Objective - Vital Signs / Intake & Output Vital Signs (Last 4 hours): Vital Signs Pulse Resp BP Pulse Ox 03/13/18 09:01 102/52 L 03/13/18 07:50 66 12 90 L 03/13/18 07:40 66 14 90 L 03/13/18 07:30 71 15 92 L 03/13/18 07:20 76 14 91 L 03/13/18 07:10 66 12 100 03/13/18 07:00 73 14 135/72 100 03/13/18 06:50 73 15 98 03/13/18 06:40 81 25 H 96 03/13/18 06:30 69 13 100 03/13/18 06:20 63 12 100 Intake and Output (Last 8hrs): Intake & Output 03/12/18 03/13/18 03/13/18 22:59 06:59 14:59 Intake Total 2500 Output Total 600 Balance 1900 Weight 149 lb 8 oz Intake: IV 2500 Right Antecubital 2500 Oral 0 Output: Urine 600 Urethral (Go) 600 Other: Voiding Method Indwelling Catheter # Bowel Movements 0 - Physical Exam Head: Positive for: Atraumatic, Normocephalic Pupils: Positive for: PERRL Extroacular Muscles: Positive for: EOMI Conjunctiva: Positive for: Normal Mouth: Positive for: Dry Neck: Positive for: Normal Range of Motion. Negative for: Meningeal Signs, MIDLINE TENDERNESS, Paraspinal Tenderness Respiratory/Chest: Positive for: Good Air Exchange, Decreased Breath Sounds (b/ l lung bases), Rales. Negative for: Respiratory Distress, Accessory Muscle Use Cardiovascular: Positive for: Regular Rate and Rhythm, Normal S1, S2. Negative for: Murmurs Abdomen: Negative for: Tenderness, Distention, Peritoneal Signs Upper Extremity: Positive for: Normal Inspection. Negative for: Cyanosis, Edema Lower Extremity: Positive for: Normal Inspection. Negative for: Edema Neurological: Positive for: Other (Drowsy but arousable to noxious stimuli GCS = 2+3+5) - Medications Active Medications: Active Medications Generic Name Dose Route Start Last Admin Trade Name Farzana PRN Reason Stop Dose Admin Furosemide 40 mg 03/13/18 10:00 03/13/18 09:01 Lasix IVP 40 mg Q12 LONG Administration Vancomycin HCl 1 gm in 250 mls @ 167 mls/hr 03/13/18 01:30 03/13/18 09:02 Vancomycin 1gm IVPB 167 mls/hr DAILY LONG Administration Protocol Cefepime HCl 1 gm in 100 mls @ 100 mls/hr 03/14/18 00:00 Maxipime 1gm IVPB Q24H LONG Protocol Sodium Chloride 1,000 mls @ 999 mls/hr 03/13/18 10:08 Sodium Chloride 0.9% IV 03/13/18 11:08 .Q1H1M STA Sodium Chloride 1,000 mls @ 100 mls/hr 03/13/18 10:15 Sodium Chloride 0.9% IV .Q10H LONG Pantoprazole Sodium 40 mg 03/13/18 10:00 03/13/18 09:01 Protonix Inj IVP 40 mg DAILY LONG Administration - Patient Studies Lab Studies: Lab Studies 03/13/18 03/13/18 03/13/18 Range/Units 06:15 06:15 06:15 WBC 5.3 (4.5-11.0) 10^3/ul RBC 2.86 L (3.5-6.1) 10^6/uL Hgb 8.6 L (14.0-18.0) g/dL Hct 26.5 L (42.0-52.0) % MCV 92.7 (80.0-105.0) fl MCH 30.1 (25.0-35.0) pg MCHC 32.5 (31.0-37.0) g/dl RDW 17.4 H (11.5-14.5) % Plt Count 233 (120.0-450.0) 10^3/uL MPV 12.0 H (7.0-11.0) fl Gran % 70.7 H (50.0-68.0) % Lymph % (Auto) 15.0 L (22.0-35.0) % [place] % (Auto) 12.4 H (1.0-6.0) % Eos % (Auto) 1.7 (1.5-5.0) % Baso % (Auto) 0.2 (0.0-3.0) % Gran # 3.72 (1.4-6.5) Lymph # (Auto) 0.8 L (1.2-3.4) [place] # (Auto) 0.7 H (0.1-0.6) Eos # (Auto) 0.1 (0.0-0.7) Baso # (Auto) 0.01 (0.0-2.0) K/mm3 pCO2 (35-45) mm/Hg pO2 (30-55) mm/Hg HCO3 (21-28) mmol/L ABG pH (7.35-7.45) ABG Total CO2 (22-28) mmol.L ABG O2 Saturation (95-98) % ABG Base Excess (-2.0-3.0) mmol/L ABG Potassium (3.6-5.2) mmol/L VBG pH (7.32-7.43) VBG pCO2 (40-60) VBG HCO3 (21-28) mmol/l VBG Total CO2 (22-28) mmol.L VBG O2 Sat (Calc) (40-65) % VBG Base Excess (0.0-2.0) mmol/L VBG Potassium (3.6-5.2) mmol/L Sodium 149 H (132-148) mmol/L Chloride 107 (98-107) mmol/L Glucose (75-110) mg/dl Lactate (0.7-2.1) mmol/L FiO2 % Potassium 5.7 H* (3.6-5.0) mmol/L Carbon Dioxide 19 L (21-33) mmol/L Anion Gap 28 H (10-20) BUN 92 H (7-21) mg/dL Creatinine 6.9 H (0.8-1.5) mg/dl Est GFR ( Amer) 9 Est GFR (Non-Af Amer) 8 Random Glucose 103 (70-110) mg/dL Calcium 9.7 (8.4-10.5) mg/dL Phosphorus 7.4 H (2.5-4.5) mg/dL Magnesium 1.9 (1.7-2.2) mg/dL Total Bilirubin 0.4 (0.2-1.3) mg/dL AST 150 H D (17-59) U/L ALT 130 H (7-56) U/L Alkaline Phosphatase 178 H (38-126) U/L Total Protein 9.3 H (5.8-8.3) g/dL Albumin 4.1 (3.0-4.8) g/dL Globulin 5.2 gm/dL Albumin/Globulin Ratio 0.8 L (1.1-1.8) TSH 3rd Generation 1.96 (0.46-4.68) mIU/mL Arterial Blood Potassium (3.6-5.2) mmol/L Venous Blood Potassium (3.6-5.2) mmol/L 03/13/18 03/13/18 03/13/18 Range/Units 05:00 01:15 00:21 WBC (4.5-11.0) 10^3/ul RBC (3.5-6.1) 10^6/uL Hgb (14.0-18.0) g/dL Hct (42.0-52.0) % MCV (80.0-105.0) fl MCH (25.0-35.0) pg MCHC (31.0-37.0) g/dl RDW (11.5-14.5) % Plt Count (120.0-450.0) 10^3/uL MPV (7.0-11.0) fl Gran % (50.0-68.0) % Lymph % (Auto) (22.0-35.0) % [place] % (Auto) (1.0-6.0) % Eos % (Auto) (1.5-5.0) % Baso % (Auto) (0.0-3.0) % Gran # (1.4-6.5) Lymph # (Auto) (1.2-3.4) [place] # (Auto) (0.1-0.6) Eos # (Auto) (0.0-0.7) Baso # (Auto) (0.0-2.0) K/mm3 pCO2 34 L (35-45) mm/Hg pO2 106.0 H 44 (30-55) mm/Hg HCO3 19.7 L (21-28) mmol/L ABG pH 7.37 (7.35-7.45) ABG Total CO2 20.7 L (22-28) mmol.L ABG O2 Saturation 98.3 H (95-98) % ABG Base Excess -4.8 L (-2.0-3.0) mmol/L ABG Potassium 5.4 H (3.6-5.2) mmol/L VBG pH 7.29 L (7.32-7.43) VBG pCO2 46.0 (40-60) VBG HCO3 22.1 (21-28) mmol/l VBG Total CO2 23.5 (22-28) mmol.L VBG O2 Sat (Calc) 79.0 H (40-65) % VBG Base Excess -4.6 L (0.0-2.0) mmol/L VBG Potassium 5.5 H (3.6-5.2) mmol/L Sodium 141.0 148 142.0 (132-148) mmol/L Chloride 109.0 H 107 110.0 H (98-107) mmol/L Glucose 95 93 (75-110) mg/dl Lactate 0.9 2.2 H (0.7-2.1) mmol/L FiO2 100.0 21.0 % Potassium 5.5 H (3.6-5.0) mmol/L Carbon Dioxide 22 (21-33) mmol/L Anion Gap 24 H (10-20) BUN 88 H (7-21) mg/dL Creatinine 6.7 H (0.8-1.5) mg/dl Est GFR ( Amer) 10 Est GFR (Non-Af Amer) 8 Random Glucose 102 (70-110) mg/dL Calcium 9.4 (8.4-10.5) mg/dL Phosphorus (2.5-4.5) mg/dL Magnesium (1.7-2.2) mg/dL Total Bilirubin (0.2-1.3) mg/dL AST (17-59) U/L ALT (7-56) U/L Alkaline Phosphatase (38-126) U/L Total Protein (5.8-8.3) g/dL Albumin (3.0-4.8) g/dL Globulin gm/dL Albumin/Globulin Ratio (1.1-1.8) TSH 3rd Generation (0.46-4.68) mIU/mL Arterial Blood Potassium 5.4 H (3.6-5.2) mmol/L Venous Blood Potassium 5.5 H (3.6-5.2) mmol/L Laboratory Results - last 24 hr 03/13/18 03/13/18 03/13/18 00:21 01:15 05:00 WBC RBC Hgb Hct MCV MCH MCHC RDW Plt Count MPV Gran % Lymph % (Auto) [place] % (Auto) Eos % (Auto) Baso % (Auto) Gran # Lymph # (Auto) [place] # (Auto) Eos # (Auto) Baso # (Auto) pCO2 34 L pO2 44 106.0 H HCO3 19.7 L ABG pH 7.37 ABG Total CO2 20.7 L ABG O2 Saturation 98.3 H ABG Base Excess -4.8 L ABG Potassium 5.4 H VBG pH 7.29 L VBG pCO2 46.0 VBG HCO3 22.1 VBG Total CO2 23.5 VBG O2 Sat (Calc) 79.0 H VBG Base Excess -4.6 L VBG Potassium 5.5 H Sodium 142.0 148 141.0 Chloride 110.0 H 107 109.0 H Glucose 93 95 Lactate 2.2 H 0.9 FiO2 21.0 100.0 Potassium 5.5 H Carbon Dioxide 22 Anion Gap 24 H BUN 88 H Creatinine 6.7 H Est GFR ( Amer) 10 Est GFR (Non-Af Amer) 8 Random Glucose 102 Calcium 9.4 Phosphorus Magnesium Total Bilirubin AST ALT Alkaline Phosphatase Total Protein Albumin Globulin Albumin/Globulin Ratio TSH 3rd Generation Arterial Blood Potassium 5.4 H Venous Blood Potassium 5.5 H 03/13/18 03/13/18 03/13/18 06:15 06:15 06:15 WBC 5.3 RBC 2.86 L Hgb 8.6 L Hct 26.5 L MCV 92.7 MCH 30.1 MCHC 32.5 RDW 17.4 H Plt Count 233 MPV 12.0 H Gran % 70.7 H Lymph % (Auto) 15.0 L [place] % (Auto) 12.4 H Eos % (Auto) 1.7 Baso % (Auto) 0.2 Gran # 3.72 Lymph # (Auto) 0.8 L [place] # (Auto) 0.7 H Eos # (Auto) 0.1 Baso # (Auto) 0.01 pCO2 pO2 HCO3 ABG pH ABG Total CO2 ABG O2 Saturation ABG Base Excess ABG Potassium VBG pH VBG pCO2 VBG HCO3 VBG Total CO2 VBG O2 Sat (Calc) VBG Base Excess VBG Potassium Sodium 149 H Chloride 107 Glucose Lactate FiO2 Potassium 5.7 H* Carbon Dioxide 19 L Anion Gap 28 H BUN 92 H Creatinine 6.9 H Est GFR ( Amer) 9 Est GFR (Non-Af Amer) 8 Random Glucose 103 Calcium 9.7 Phosphorus 7.4 H Magnesium 1.9 Total Bilirubin 0.4 AST 150 H D ALT 130 H Alkaline Phosphatase 178 H Total Protein 9.3 H Albumin 4.1 Globulin 5.2 Albumin/Globulin Ratio 0.8 L TSH 3rd Generation 1.96 Arterial Blood Potassium Venous Blood Potassium Fingerstick Blood Sugar Results: 103 Critical Care Progress Note - Nutrition Nutrition: Nutrition Category Date Time Status NPO Diet [DIET] Diets 03/13/18 Dinner Ordered Assessment/Plan - Assessment and Plan (Free Text) Plan: Mr Simmons, 77 year old male, a terrell of state guardianship due to advance dementia, with Hx PMHx CAD s/p CABG, DM, Alzheimer's disease, psychosis, malignancy with mets to the bone (likely multiple myeloma) who presents from [facility] for lethargy and fluctuating oxygenation saturation to 80s on RA. 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 Another 40 mg was ordered. Now, pt clinially look dry IVC (Pending ultrasound machine) NS bolus now, NS@100 Hold lasix for now Pulmonology Duoneb Q6 LONG Continue Venti Mask 100% PaO2/FiO2 = 106 (previously 285) A-A gradient = 713 - 34x1.25 = 670 Last night A-a gradient = 190 Gastroenterology NPO until swallow evaluation Protonix IVP Renal Bladder scan Recheck BMP at 2pm, 10pm Monitor U/O Go Defer to Dr. Ma for BIPIN work up Endocrine Maintain blood glucose 140-180 A1C 8.7 (2016) Infectious Disease Given Cefepime and Azithromycin in the ED Vancomycin 2gm x 1 (one sash installer and one now), Cefepime and Doxycycline (has been given a dose of Zithromax in the ED) Pending blood, sputum cx, PCT, urine Legionella Ag, procalcitonin HEME R rib mass - onc consult per primary Prophylaxis Protonix Heparin SC Dispo planning Per Dr Walsh, hold palliative consult until Friday s/r/d/w Dr Maxwell <Booker Maxwell - Last Filed: 03/13/18 11:33> CCU Objective - Vital Signs / Intake & Output Vital Signs (Last 4 hours): Vital Signs Pulse Resp BP Pulse Ox 03/13/18 09:01 102/52 L 03/13/18 07:50 66 12 90 L 03/13/18 07:40 66 14 90 L 03/13/18 07:30 71 15 92 L Intake and Output (Last 8hrs): Intake & Output 03/12/18 03/13/18 03/13/18 22:59 06:59 14:59 Intake Total 2500 Output Total 600 Balance 1900 Weight 149 lb 8 oz Intake: IV 2500 Right Antecubital 2500 Oral 0 Output: Urine 600 Urethral (Go) 600 Other: Voiding Method Indwelling Catheter # Bowel Movements 0 - Medications Active Medications: Active Medications Generic Name Dose Route Start Last Admin Trade Name Freq PRN Reason Stop Dose Admin Albuterol/Ipratropium 3 ml 03/13/18 14:00 Duoneb 3 Mg/0.5 Mg (3 Ml) Ud IH [id number] LONG Furosemide 40 mg 03/13/18 10:00 03/13/18 09:01 Lasix IVP 40 mg Q12 LONG Administration Heparin Sodium (Porcine) 5,000 units 03/13/18 14:00 Heparin SC Q8 LONG Protocol Cefepime HCl 1 gm in 100 mls @ 100 mls/hr 03/14/18 00:00 Maxipime 1gm IVPB Q24H LONG Protocol Sodium Chloride 1,000 mls @ 100 mls/hr 03/13/18 10:15 Sodium Chloride 0.9% IV .Q10H LONG Doxycycline Hyclate 100 mg/ 100 mls @ 100 mls/hr 03/13/18 22:00 Sodium Chloride IVPB Q12 LONG Protocol Pantoprazole Sodium 40 mg 03/13/18 10:00 03/13/18 09:01 Protonix Inj IVP 40 mg DAILY LONG Administration - Patient Studies Lab Studies: Lab Studies 03/13/18 03/13/18 03/13/18 Range/Units 06:15 06:15 06:15 WBC 5.3 (4.5-11.0) 10^3/ul RBC 2.86 L (3.5-6.1) 10^6/uL Hgb 8.6 L (14.0-18.0) g/dL Hct 26.5 L (42.0-52.0) % MCV 92.7 (80.0-105.0) fl MCH 30.1 (25.0-35.0) pg MCHC 32.5 (31.0-37.0) g/dl RDW 17.4 H (11.5-14.5) % Plt Count 233 (120.0-450.0) 10^3/uL MPV 12.0 H (7.0-11.0) fl Gran % 70.7 H (50.0-68.0) % Lymph % (Auto) 15.0 L (22.0-35.0) % [place] % (Auto) 12.4 H (1.0-6.0) % Eos % (Auto) 1.7 (1.5-5.0) % Baso % (Auto) 0.2 (0.0-3.0) % Gran # 3.72 (1.4-6.5) Lymph # (Auto) 0.8 L (1.2-3.4) [place] # (Auto) 0.7 H (0.1-0.6) Eos # (Auto) 0.1 (0.0-0.7) Baso # (Auto) 0.01 (0.0-2.0) K/mm3 pCO2 (35-45) mm/Hg pO2 (30-55) mm/Hg HCO3 (21-28) mmol/L ABG pH (7.35-7.45) ABG Total CO2 (22-28) mmol.L ABG O2 Saturation (95-98) % ABG Base Excess (-2.0-3.0) mmol/L ABG Potassium (3.6-5.2) mmol/L VBG pH (7.32-7.43) VBG pCO2 (40-60) VBG HCO3 (21-28) mmol/l VBG Total CO2 (22-28) mmol.L VBG O2 Sat (Calc) (40-65) % VBG Base Excess (0.0-2.0) mmol/L VBG Potassium (3.6-5.2) mmol/L Sodium 149 H (132-148) mmol/L Chloride 107 (98-107) mmol/L Glucose (75-110) mg/dl Lactate (0.7-2.1) mmol/L FiO2 % Potassium 5.7 H* (3.6-5.0) mmol/L Carbon Dioxide 19 L (21-33) mmol/L Anion Gap 28 H (10-20) BUN 92 H (7-21) mg/dL Creatinine 6.9 H (0.8-1.5) mg/dl Est GFR ( Amer) 9 Est GFR (Non-Af Amer) 8 Random Glucose 103 (70-110) mg/dL Calcium 9.7 (8.4-10.5) mg/dL Phosphorus 7.4 H (2.5-4.5) mg/dL Magnesium 1.9 (1.7-2.2) mg/dL Total Bilirubin 0.4 (0.2-1.3) mg/dL AST 150 H D (17-59) U/L ALT 130 H (7-56) U/L Alkaline Phosphatase 178 H (38-126) U/L Total Protein 9.3 H (5.8-8.3) g/dL Albumin 4.1 (3.0-4.8) g/dL Globulin 5.2 gm/dL Albumin/Globulin Ratio 0.8 L (1.1-1.8) TSH 3rd Generation 1.96 (0.46-4.68) mIU/mL Arterial Blood Potassium (3.6-5.2) mmol/L Venous Blood Potassium (3.6-5.2) mmol/L 03/13/18 03/13/1818 Range/Units 05:00 01:15 00:21 WBC (4.5-11.0) 10^3/ul RBC (3.5-6.1) 10^6/uL Hgb (14.0-18.0) g/dL Hct (42.0-52.0) % MCV (80.0-105.0) fl MCH (25.0-35.0) pg MCHC (31.0-37.0) g/dl RDW (11.5-14.5) % Plt Count (120.0-450.0) 10^3/uL MPV (7.0-11.0) fl Gran % (50.0-68.0) % Lymph % (Auto) (22.0-35.0) % [place] % (Auto) (1.0-6.0) % Eos % (Auto) (1.5-5.0) % Baso % (Auto) (0.0-3.0) % Gran # (1.4-6.5) Lymph # (Auto) (1.2-3.4) [place] # (Auto) (0.1-0.6) Eos # (Auto) (0.0-0.7) Baso # (Auto) (0.0-2.0) K/mm3 pCO2 34 L (35-45) mm/Hg pO2 106.0 H 44 (30-55) mm/Hg HCO3 19.7 L (21-28) mmol/L ABG pH 7.37 (7.35-7.45) ABG Total CO2 20.7 L (22-28) mmol.L ABG O2 Saturation 98.3 H (95-98) % ABG Base Excess -4.8 L (-2.0-3.0) mmol/L ABG Potassium 5.4 H (3.6-5.2) mmol/L VBG pH 7.29 L (7.32-7.43) VBG pCO2 46.0 (40-60) VBG HCO3 22.1 (21-28) mmol/l VBG Total CO2 23.5 (22-28) mmol.L VBG O2 Sat (Calc) 79.0 H (40-65) % VBG Base Excess -4.6 L (0.0-2.0) mmol/L VBG Potassium 5.5 H (3.6-5.2) mmol/L Sodium 141.0 148 142.0 (132-148) mmol/L Chloride 109.0 H 107 110.0 H (98-107) mmol/L Glucose 95 93 (75-110) mg/dl Lactate 0.9 2.2 H (0.7-2.1) mmol/L FiO2 100.0 21.0 % Potassium 5.5 H (3.6-5.0) mmol/L Carbon Dioxide 22 (21-33) mmol/L Anion Gap 24 H (10-20) BUN 88 H (7-21) mg/dL Creatinine 6.7 H (0.8-1.5) mg/dl Est GFR ( Amer) 10 Est GFR (Non-Af Amer) 8 Random Glucose 102 (70-110) mg/dL Calcium 9.4 (8.4-10.5) mg/dL Phosphorus (2.5-4.5) mg/dL Magnesium (1.7-2.2) mg/dL Total Bilirubin (0.2-1.3) mg/dL AST (17-59) U/L ALT (7-56) U/L Alkaline Phosphatase (38-126) U/L Total Protein (5.8-8.3) g/dL Albumin (3.0-4.8) g/dL Globulin gm/dL Albumin/Globulin Ratio (1.1-1.8) TSH 3rd Generation (0.46-4.68) mIU/mL Arterial Blood Potassium 5.4 H (3.6-5.2) mmol/L Venous Blood Potassium 5.5 H (3.6-5.2) mmol/L Laboratory Results - last 24 hr 03/13/18 03/13/18 03/13/18 00:21 01:15 05:00 WBC RBC Hgb Hct MCV MCH MCHC RDW Plt Count MPV Gran % Lymph % (Auto) [place] % (Auto) Eos % (Auto) Baso % (Auto) Gran # Lymph # (Auto) [place] # (Auto) Eos # (Auto) Baso # (Auto) pCO2 34 L pO2 44 106.0 H HCO3 19.7 L ABG pH 7.37 ABG Total CO2 20.7 L ABG O2 Saturation 98.3 H ABG Base Excess -4.8 L ABG Potassium 5.4 H VBG pH 7.29 L VBG pCO2 46.0 VBG HCO3 22.1 VBG Total CO2 23.5 VBG O2 Sat (Calc) 79.0 H VBG Base Excess -4.6 L VBG Potassium 5.5 H Sodium 142.0 148 141.0 Chloride 110.0 H 107 109.0 H Glucose 93 95 Lactate 2.2 H 0.9 FiO2 21.0 100.0 Potassium 5.5 H Carbon Dioxide 22 Anion Gap 24 H BUN 88 H Creatinine 6.7 H Est GFR ( Amer) 10 Est GFR (Non-Af Amer) 8 Random Glucose 102 Calcium 9.4 Phosphorus Magnesium Total Bilirubin AST ALT Alkaline Phosphatase Total Protein Albumin Globulin Albumin/Globulin Ratio TSH 3rd Generation Arterial Blood Potassium 5.4 H Venous Blood Potassium 5.5 H 03/13/18 03/13/18 03/13/18 06:15 06:15 06:15 WBC 5.3 RBC 2.86 L Hgb 8.6 L Hct 26.5 L MCV 92.7 MCH 30.1 MCHC 32.5 RDW 17.4 H Plt Count 233 MPV 12.0 H Gran % 70.7 H Lymph % (Auto) 15.0 L [place] % (Auto) 12.4 H Eos % (Auto) 1.7 Baso % (Auto) 0.2 Gran # 3.72 Lymph # (Auto) 0.8 L [place] # (Auto) 0.7 H Eos # (Auto) 0.1 Baso # (Auto) 0.01 pCO2 pO2 HCO3 ABG pH ABG Total CO2 ABG O2 Saturation ABG Base Excess ABG Potassium VBG pH VBG pCO2 VBG HCO3 VBG Total CO2 VBG O2 Sat (Calc) VBG Base Excess VBG Potassium Sodium 149 H Chloride 107 Glucose Lactate FiO2 Potassium 5.7 H* Carbon Dioxide 19 L Anion Gap 28 H BUN 92 H Creatinine 6.9 H Est GFR ( Amer) 9 Est GFR (Non-Af Amer) 8 Random Glucose 103 Calcium 9.7 Phosphorus 7.4 H Magnesium 1.9 Total Bilirubin 0.4 AST 150 H D ALT 130 H Alkaline Phosphatase 178 H Total Protein 9.3 H Albumin 4.1 Globulin 5.2 Albumin/Globulin Ratio 0.8 L TSH 3rd Generation 1.96 Arterial Blood Potassium Venous Blood Potassium Critical Care Progress Note - Nutrition Nutrition: Nutrition Category Date Time Status NPO Diet [DIET] Diets 03/13/18 Dinner Ordered Assessment/Plan - Assessment and Plan (Free Text) Plan: Patient seen and examined on rounds with resident, agree with note with following additions/exceptions: Patient is 77yo male with severe dementia, psychosis, ?MM, bone mets, admitted for hypoxia, PNA, renal failure Currently afebrile, BP stable, on VM50%, sat 94% CXR with RLL infiltrate Clinically dry on exam, elevated Cr, hyperkalemia Cardiology following ECHO normal EF PNA Hypoxia Dementia Bone Mets ARF Hyperkalemia Recommend: - supp o2 as needed, goal sat >90% - duonebs PRN - broad spectrum abx, Vanco, Cefepime, Doxy - check Urine Lg, Strep, Procal - Follow up cultures - treat hyperkalemia, D50, Insulin, Calcium Kayex - Renal eval - IVF hydration - Hold diuresis - ECHO - cardiology follow up - GI ppx - DVT ppx - Monitor in MICU Critical care time 35 minutes
[2018-03-13] MEDS ORDERED: Vancomycin 1gm in NS 250ml 1 GM/250 ML BAG IVPB STA (10:21)
--- NOTE | 2018-03-13 10:26 | CP.PCM.CON ---
History of Present Illness - History of Present Illness History of Present Illness: 77 year old male with PMH of severe dementia, psychosis, possible multiple myeloma, CAD S/P CABG came from the [facility] because of lethargy and hypoxia. HPI was taken from ED records and ICU team since there is no family around to give HPI and patient is lethargic. There was no note of fevers, no vomiting, no diarrhea, no convulsions, no loss of consciousness. In the ED, the patient was to be still hypoxic and lethargic and is now in the ICU for closer observation and management. Infectious Diseases consult is requested to further evaluate and manage. Review of Systems - Review of Systems Systems not reviewed;Unavailable: Dementia Past Patient History - Infectious Disease Hx of Infectious Diseases: None - Past Medical History & Family History Past Medical History?: Yes - Past Social History Smoking Status: Never Smoked - CARDIAC Other/Comment: cabg - PULMONARY Hx Tuberculosis: No - NEUROLOGICAL Hx Alzheimer's Disease: Yes HX Cerebrovascular Accident: Yes Hx Dementia: Yes Hx Seizures: Yes - HEENT Hx HEENT Problems: No - RENAL Hx Chronic Kidney Disease: No - ENDOCRINE/METABOLIC Hx Endocrine Disorders: Yes Hx Diabetes Mellitus Type 1: Yes - HEMATOLOGICAL/ONCOLOGICAL Hx Anemia: Yes Hx Cancer: Yes Other/Comment: multiple myeloma? - INTEGUMENTARY Hx Dermatological Problems: No - MUSCULOSKELETAL/RHEUMATOLOGICAL Hx Arthritis: Yes Hx Falls: No - GASTROINTESTINAL Hx Gastrointestinal Disorders: Yes - GENITOURINARY/GYNECOLOGICAL Hx Sexually Transmitted Disorders: No - PSYCHIATRIC Hx Psychosis: Yes - SURGICAL HISTORY Hx Surgeries: Yes Hx Coronary Stent: Yes Other/Comment: cabg - ANESTHESIA Hx Anesthesia: Yes Hx Anesthesia Reactions: No Hx Malignant Hyperthermia: No Meds Allergies/Adverse Reactions: Allergies Allergy/AdvReac Type Severity Reaction Status Date / Time ciprofloxacin AdvReac RASH Verified 12/23/17 11:33 - Medications Medications: Current Medications Furosemide (Lasix) 40 mg IVP Q12 LONG Vancomycin HCl (Vancomycin 1gm) 1 gm in 250 mls @ 167 mls/hr IVPB DAILY LONG PRN Reason: Protocol Last Admin: 03/13/18 03:30 Dose: 167 mls/hr Cefepime HCl (Maxipime 1gm) 1 gm in 100 mls @ 100 mls/hr IVPB Q24H LONG PRN Reason: Protocol Pantoprazole Sodium (Protonix Inj) 40 mg IVP DAILY LONG Physical Exam - Constitutional Appears: Chronically Ill, Other (lethargic but arousable, does not follow commands) - Neck Exam Neck exam: Negative for: Lymphadenopathy, Meningismus - Respiratory Exam Respiratory Exam: Decreased Breath Sounds - Cardiovascular Exam Cardiovascular Exam: +S1, +S2 - GI/Abdominal Exam GI & Abdominal Exam: Soft. absent: Tenderness Results - Vital Signs Recent Vital Signs: Last Vital Signs Temp 98.2 F 03/13/18 04:00 Pulse 66 03/13/18 07:50 Resp 12 03/13/18 07:50 BP 135/72 03/13/18 07:00 Pulse Ox 90 L 03/13/18 07:50 - Labs Result Diagrams: 03/13/18 06:15 03/13/18 06:15 Labs: Laboratory Results - last 24 hr 03/13/18 03/13/18 03/13/18 00:21 01:15 05:00 WBC RBC Hgb Hct MCV MCH MCHC RDW Plt Count MPV Gran % Lymph % (Auto) [place] % (Auto) Eos % (Auto) Baso % (Auto) Gran # Lymph # (Auto) [place] # (Auto) Eos # (Auto) Baso # (Auto) pCO2 34 L pO2 44 106.0 H HCO3 19.7 L ABG pH 7.37 ABG Total CO2 20.7 L ABG O2 Saturation 98.3 H ABG Base Excess -4.8 L ABG Potassium 5.4 H VBG pH 7.29 L VBG pCO2 46.0 VBG HCO3 22.1 VBG Total CO2 23.5 VBG O2 Sat (Calc) 79.0 H VBG Base Excess -4.6 L VBG Potassium 5.5 H Sodium 142.0 148 141.0 Chloride 110.0 H 107 109.0 H Glucose 93 95 Lactate 2.2 H 0.9 FiO2 21.0 100.0 Potassium 5.5 H Carbon Dioxide 22 Anion Gap 24 H BUN 88 H Creatinine 6.7 H Est GFR ( Amer) 10 Est GFR (Non-Af Amer) 8 Random Glucose 102 Calcium 9.4 Phosphorus Magnesium Total Bilirubin AST ALT Alkaline Phosphatase Total Protein Albumin Globulin Albumin/Globulin Ratio TSH 3rd Generation Arterial Blood Potassium 5.4 H Venous Blood Potassium 5.5 H 03/13/18 03/13/18 03/13/18 06:15 06:15 06:15 WBC 5.3 RBC 2.86 L Hgb 8.6 L Hct 26.5 L MCV 92.7 MCH 30.1 MCHC 32.5 RDW 17.4 H Plt Count 233 MPV 12.0 H Gran % 70.7 H Lymph % (Auto) 15.0 L [place] % (Auto) 12.4 H Eos % (Auto) 1.7 Baso % (Auto) 0.2 Gran # 3.72 Lymph # (Auto) 0.8 L [place] # (Auto) 0.7 H Eos # (Auto) 0.1 Baso # (Auto) 0.01 pCO2 pO2 HCO3 ABG pH ABG Total CO2 ABG O2 Saturation ABG Base Excess ABG Potassium VBG pH VBG pCO2 VBG HCO3 VBG Total CO2 VBG O2 Sat (Calc) VBG Base Excess VBG Potassium Sodium 149 H Chloride 107 Glucose Lactate FiO2 Potassium 5.7 H* Carbon Dioxide 19 L Anion Gap 28 H BUN 92 H Creatinine 6.9 H Est GFR ( Amer) 9 Est GFR (Non-Af Amer) 8 Random Glucose 103 Calcium 9.7 Phosphorus 7.4 H Magnesium 1.9 Total Bilirubin 0.4 AST 150 H D ALT 130 H Alkaline Phosphatase 178 H Total Protein 9.3 H Albumin 4.1 Globulin 5.2 Albumin/Globulin Ratio 0.8 L TSH 3rd Generation 1.96 Arterial Blood Potassium Venous Blood Potassium Assessment & Plan - Assessment and Plan (Free Text) Plan: Assessment Lethargy with acute on chronic renal failure R/O severe sepsis due to right sided HCAP severe dementia psychosis possible multiple myeloma CAD S/P CABG Plan Started with Vancomycin 2gm x 1 (one licensed final expense agents and one now), Cefepime and Doxycycline (has been given a dose of Zithromax in the ED) pending blood, sputum cx, PCT, urine Legionella Ag overall prognosis is poor will monitor clinically
[2018-03-13] MEDS: Albuterol-Ipratrop 3 mg / 0.5 (3 ml) UD IH SCH ×2 (13:06→19:43)
--- NOTE | 2018-03-13 15:21 | CON ---
DATE: 03/13/2018 The patient was seen in the past from the skilled nursing. He is now admitted for change in mental status and for probable sepsis. His lab numbers show hemoglobin 7.5, after transfusion 8.6 and pO2 of 57 on admission with a lactic acid level of 2.3. He was also shown to have a BUN on admission of 91 with a creatinine of 7, this is unchanged and phosphorus is 7.9 and mildly elevated liver function test, about 150 AST and ALT 130, alkaline phosphatase 178. The patient on x-ray does have lytic lesions in his bones, it is unclear but right now he is not able to get a bone marrow evaluation. He is being treated for his electrolyte imbalance, renal failure and probable sepsis. Interestingly enough, his total protein is elevated at 9.3 with albumin of 4.1 and globulin of 5.2, so I will order a serum protein electrophoresis etc. to rule out myeloma. I will be away on vacation for one week. Dr. Killian was covering for me. Rolando Wilhelm MD
[2018-03-13 15:32] LABS: BASO # 0.01 K/mm3 (0.0-2.0); BASO % 0.2 % (0.0-3.0); EOS # 0.1 (0.0-0.7); EOS % 1.8 % (1.5-5.0); GRAN # 4.18 (1.4-6.5); GRAN % 73.9 % (50.0-68.0); HEMOGLOBIN 8.4 g/dL (14.0-18.0); LYMPH # 0.7 (1.2-3.4); LYMPH % 13.1 % (22.0-35.0); MEAN CELL VOLUME 93.5 fl (80.0-105.0); MEAN CORPUSCULAR HEMOGLOBIN 30.1 pg (25.0-35.0); MEAN CORPUSCULAR HGB CONC 32.2 g/dl (31.0-37.0); MEAN PLATELET VOLUME 11.4 fl (7.0-11.0); MONO # 0.6 (0.1-0.6); RBC 2.79 10^6/uL (3.5-6.1); RED CELL DISTRIBUTION WIDTH 17.3 % (11.5-14.5); WHITE BLOOD COUNT 5.7 10^3/ul (4.5-11.0)
[2018-03-13 16:07] LABS: ALB/GLOB RATIO 0.7 (1.1-1.8); ALBUMIN 3.8 g/dL (3.0-4.8); CALCIUM 9.5 mg/dL (8.4-10.5); CREATININE,RANDOM URINE 22 mg/dL
--- NOTE | 2018-03-13 16:07 | CON ---
DATE: 03/13/2018 PULMONARY CONSULTATION REASON FOR CONSULTATION: Pneumonia. REFERRING PHYSICIAN: Jerzy Walsh DO HISTORY OF PRESENT ILLNESS: History is obtained via extensive discussion with the night nurse. I have also reviewed the chart at length. The patient is not an adequate historian at this point in time. The patient is a chronically ill 77-year-old male, with past medical history significant for atrial fibrillation, coronary artery disease, status post cardiac stents, status post open heart surgery; Alzheimer's dementia, cerebrovascular accident in the past, diabetes mellitus, probable multiple myeloma (lytic skull lesions seen on previous CAT scan of the head), who presents to [facility] - transferred from the half-way - with increasing lethargy and shortness of breath. In the half-way, the patient was also noted to have a low pulse oximetry. The patient was then transferred to [facility] for additional evaluation. Again, I did discuss the case with the night nurse at length. The patient did present with some shortness of breath. He is not short of breath this morning. There is no history of cough or sputum production. There is no history of chest pain, coughing up of blood, or chest pain - made worse with deep respirations. There is no history of temperatures, chills or infectious exposure. There is no history of night sweats, weight loss or appetite change prior to the above events. No history of calf pains. No history of syncope or diaphoresis. No history of recent travel or trauma. REVIEW OF SYSTEMS: No history of nausea, vomiting or diarrhea. No acute urinary symptoms. Rest of the review of systems is noncontributory. ALLERGIES: CIPROFLOXACIN. SOCIAL HISTORY: Positive for tobacco and negative for alcohol. FAMILY HISTORY: No inheritable diseases. HOME MEDICATIONS: Include Risperdal, Percocet, Keppra, Toprol, Glucophage, Lantus, Flonase, Neurontin, Vasotec, Aricept, Colace, Zithromax, Lipitor, aspirin. PHYSICAL EXAMINATION GENERAL: The patient is not short of breath at the present time. He is lethargic, but arousable. VITAL SIGNS: Temperature is 98.2, pulse 66, respirations 18/20, blood pressure 122/48. Oxygen saturation on non-rebreather mask is 96%. HEENT: Normocephalic, atraumatic. No JVD. CARDIOVASCULAR: Positive S1, S2. Positive S3 gallop. LUNGS: Crackles at both bases are appreciated. No rhonchi. No wheezing. EXTREMITIES: No clubbing, cyanosis or edema. Calves are nontender to palpation. GI: Abdomen is soft, nontender and nondistended. Bowel sounds are positive. SKIN: No acute rash. NEUROLOGIC: Limited at the present time. PERTINENT LABORATORY DATA: Chest x-ray was done and reviewed. I have also reviewed the previous chest x-rays. There is a chronic-appearing opacity in the lateral right upper lobe. The right third rib is missing, and it is presumed that the chronic opacity is due to previous surgery. In addition, the chest x-ray does show a moderate increase in pulmonary vascular congestion. Lastly, there is a small patchy infiltrate at the right base - possibly consistent with pneumonia. CBC: White count 5.3K, hemoglobin 8.6, hematocrit 26.5, platelets of 233,000. Arterial blood gas was done on 100% non-rebreather. Results are pH 7.37, pCO2 of 34, pO2 of 106. Initial arterial blood gas done on 32%. Results are pH 7.39, pCO2 of 31, pO2 of 57. Complete metabolic profile: Potassium 5.5, anion gap 24, BUN 88, creatinine 6.7. Rest of the metabolic profile is within normal limits. B-type natriuretic peptide 7990. IMPRESSION: 1. Acute congestive heart failure. 2. Acute renal insufficiency. 3. Rule out pneumonia - right lower lobe. 4. Hypoxemia. 5. Chronic anemia. 6. Probable multiple myeloma. 7. Encephalopathy. 8. Coronary artery disease. PLAN: Again, I did discuss the case with the night nurse at length. I have also reviewed the chart at length. The patient presents to [facility] - transferred from the half-way - because of increasing lethargy, shortness of breath, and oxygen desaturation for the past 1 day. There are no other pulmonary symptoms reported. I did review the chest x-ray - noted above. There is definite evidence of pulmonary vascular congestion. There is also a possible right lower lobe infiltrate. Lr cultures have been ordered, and will be analyzed when feasible. The patient has been started on antibiotic therapy. Procalcitonin is ordered. On physical exam, there is no significant bronchospasm noted. However, there is a significant alveolar-arterial gradient. I will try decreasing the FiO2 this morning. I will also order aspiration precautions. Consultations with Cardiology and Renal have been ordered. The patient appears critically ill with very guarded prognosis. As above, he is a chronically ill patient with multiple medical problems. I will order a followup chest x-ray and arterial blood gas for tomorrow morning. Additional pulmonary intervention will be based on the above results as well as the clinical status of the patient. I will discuss the above with the entire ICU team in the next few moments. I will also discuss the above with Dr. Walsh. Thank you very much for this pulmonary consultation. Jose Leroy MD MTDD
--- NOTE | 2018-03-13 17:12 | US ---
PROCEDURE: Ultrasound of the Kidneys HISTORY: ARF, Myeloma, R/O hydro, myeloma kidney COMPARISON: None available. TECHNIQUE: Sonogram of the kidneys. FINDINGS: RIGHT KIDNEY: Measures: 5.7 x 6.6 x 12.9 cm. Normal in size, contour and echogenicity. No stone, solid mass lesion or hydronephrosis visualized. LEFT KIDNEY: Measures: 6.6 x 6 x 12.3 cm. Normal in size, contour and echogenicity. No stone, solid mass lesion or hydronephrosis visualized. OTHER FINDINGS: None. IMPRESSION: Unremarkable renal sonogram.
--- NOTE | 2018-03-13 18:04 | CON ---
DATE: 03/13/2018 CARDIOLOGY CONSULTATION HISTORY OF PRESENT ILLNESS: The patient is a 77-year-old male who presented from a [facility] for lethargy. PAST MEDICAL HISTORY: Complicated with a history of chronic atrial fibrillation, history of coronary artery bypass surgery for three-vessel CAD, history of dementia as well as Alzheimer disease, history of CVA, diabetes mellitus as well as a history of schizophrenic disorder. The patient in the ICU, is currently lethargic. No other history is available. PHYSICAL EXAMINATION VITAL SIGNS: Blood pressure is 102/52, the heart rate is in the 60s, atrial fibrillation. NECK: Negative JVD. LUNGS: Bilateral crackles. HEART: Reveals S1 and S2. EXTREMITIES: Without edema. LABORATORY DATA: Hemoglobin is 8.6. Chemistries: BUN and creatinine is 92 over 6.9 with a potassium of 5.7. Liver enzymes are mildly elevated, ProBNP is 7990. Preliminary echocardiogram reveals good LV function with dilated LA and RA. IMPRESSION: 1. Lethargy. 2. Anemia. 3. History of coronary artery bypass surgery. 4. Preserved left ventricular function. 5. Renal insufficiency with a prerenal component. 6. Dementia. 7. Schizophrenic disorder. 8. Coronary artery disease. PLAN: Given these findings, I agree with a trial of IV fluids. We will need to rule out sepsis. His acute renal insufficiency is likely the cause of his current lethargy. We will review his echocardiogram. Rusty Horton MD
--- NOTE | 2018-03-13 20:45 | HP ---
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 I was called to the emergency room to visit Raudel Simmons who comes from [facility], who is lethargic, nonverbal at this time. He has a past medical history being 77-year-old white male with history of AFib, CABG, CAD, coronary stents, Alzheimer's, CVA, diabetes, arthritis, schizoaffective disorder, multiple myeloma with bone mets and is now lethargic, nonverbal in the intensive care unit. He has had a CABG before, he had CVA. He has dementia, diabetes, arthritis, falls, psychosis, coronary stents. FAMILY HISTORY: Unknown. SOCIAL HISTORY: Never smoked, alcohol, not sure about substance abuse. ALLERGIES: CIPRO. MEDICATIONS: He is on insulin, aspirin, Vasotec, laxatives, Colace, Flonase, Neurontin, magnesium, Glucophage, multivitamin, enemas, Percocet, Risperdal. Not much of a history from [place], but he is not arousable at this time, he is unable to answer questions. PHYSICAL EXAMINATION: VITAL SIGNS: He has a 98.3 temperature, 58 pulse, 17 respiratory rate, 108/58 blood pressure, 87% O2 sat. He needs oxygen and insulin coverage. HEENT: His head is atraumatic, normocephalic. Throat is dry. NECK: Supple. HEART: Regular rate. Normal S1, S2. LUNGS: Decreased breath sounds, but clear. No apparent wheezes, rhonchi, or rales. ABDOMEN: Soft, nontender to palpation in any way. No apparent distress, it is soft, positive bowel sounds. EXTREMITIES: No edema. NEUROLOGICAL: He is nonverbal at this time. He is lethargic, drowsy, not arousable for me. LABORATORY DATA: He had multiple tests. He has a 149 sodium, potassium is 5.7, we will give him medications for the high potassium. BUN is 92, creatinine is 6.9. He is going to have Renal involved for acute kidney disease and renal failure. He has a sugar of 103. Calcium is 9.7. Total bili is 0.4, AST is 160, ALT is 130, alk phos 178. Total protein is 9.1. White count is 5.3, hemoglobin is up to 8.6, hematocrit is 233. His lactate was 2.3. He has multiple consults ordered. He is going to have Cardio, Pulmonary, Renal, Infectious Disease, and Oncology/Hematology. He is in trouble in the intensive care unit, apparently septic. We will do the best we can on Raudel Simmons. Jerzy Walsh DO MTDD
--- NOTE | 2018-03-13 20:49 | CARD ---
APPROVED REPORT EXAM: Two-dimensional and M-mode echocardiogram with Doppler and color Doppler. INDICATION HX OF CAD 2D DIMENSIONS Left Atrium (2D)6.1 (1.6-4.0cm)IVSd1.4 (0.7-1.1cm) LVDd4.7 (3.9-5.9cm)PWd1.7 (0.7-1.1cm) LVDs3.4 (2.5-4.0cm)FS (%) 28.8 % LVEF (%)55.4 (>50%) M-Mode DIMENSIONS Aortic Root3.70 (2.2-3.7cm)Aortic Cusp Exc.1.50 (1.5-2.0cm) Aortic Valve AoV Peak Jtfcuuvr584.0cm/sAoV VTI63.1cmAO Peak GR.24mmHg LVOT Peak Yenqawei088.0cm/sLVOT VTI25.90cmAO Mean GR.15mmHg Mitral Valve MV E Tmvnbjcg618.0cm/sMV A Jhopmenq19.5cm/sE/A ratio3.5 TDI Lateral E' Peak V8.29cm/sMedial E' Peak V4.97cm/sE/Lateral E'16.9 E/Medial E'28.2 Pulmonary Valve PV Peak Itjpvqrj57.9cm/sPV Peak Grad.3mmHg Tricuspid Valve TR Peak Ykynhrcg363tb/sRAP IRWLAJAP07tgYuSB Peak Gr.37mmHg LTSX13vsRy LEFT VENTRICLE The left ventricle is normal size. There is mild concentric left ventricular hypertrophy. The left ventricular function is normal. The left ventricular ejection fraction is within the normal range. There is normal LV segmental wall motion. RIGHT VENTRICLE The right ventricle is normal size. There is normal right ventricular wall thickness. The right ventricular systolic function is normal. ATRIA The left atrium is moderately dilated. The right atrium is moderately dilated. AORTIC VALVE The aortic valve is severely thickened. There is mild aortic regurgitation. There is trace valvular aortic stenosis. MITRAL VALVE The mitral valve is moderately thickened. Mitral regurgitation is moderate. TRICUSPID VALVE There is mild to moderate tricuspid regurgitation. There is mild to moderate pulmonary hypertension. GREAT VESSELS The aortic root is borderline in size. <Conclusion> The left ventricle is normal size. There is mild concentric left ventricular hypertrophy. The left ventricular function is normal. The left ventricular ejection fraction is within the normal range. There is normal LV segmental wall motion. The aortic valve is severely thickened. There is mild aortic regurgitation. Mitral regurgitation is moderate. There is mild to moderate tricuspid regurgitation. There is mild to moderate pulmonary hypertension.
[2018-03-13 21:26] LABS: IMMUNOGLOBULIN G 541.9 mg/dL (700.0-1600.0); IMMUNOGLOBULIN M 37.7 mg/dL (40.0-230.0)
--- NOTE | 2018-03-13 21:39 | CARD ---
APPROVED REPORT EKG Measurement Heart [id number] <Conclusion> A Flutter with variable AV conduction Right bundle branch block T wave abnormality, consider inferior ischemia Abnormal ECG
--- NOTE | 2018-03-13 22:01 | CON ---
DATE: 03/13/[address] Jerzy Walsh on 03/12/2018. REFERRING MD: Dr. Jerzy Walsh and the CCU house staff. REASON FOR CONSULTATION: Evaluation of a patient unknown to me who presents with acute renal failure in the setting of multiple myeloma. Patient has advanced mention and decision making is done by a Guardian of [facility]. HISTORY OF PRESENT ILLNESS: Patient is a 77-year-old white male with a history of ASHD status post CABG, status post PTCA stent, history of dementia, history of stroke, history of diabetes mellitus, history of schizoaffective disorder, history of multiple myeloma dating back 10 years. Patient presents to the hospital on 03/12/2018, sent over from the detention for increasing lethargy. Patient has no past history of chronic kidney disease. Back earlier this year, his BUN was in the 20s with a creatinine of 1.1. On admission, patient was noted to have a sodium of 146, potassium of 6.8, BUN of 91, and a creatinine of 7. Calcium level was 9.7, phosphorus 7.9. Post hydration, patient's potassium remains elevated at 5.7. BUN is 92 with a creatinine of 6.9. Urine studies were done. He has trace protein. No white blood cells. We are asked to evaluate patient for increased lethargy, likely secondary to acute renal failure in the setting of multiple myeloma. It is unknown to me at the time of this dictation the extent of his myeloma; if he had light chain myeloma; if he has ever had hypercalcemia, high uric acid levels. No renal imaging studies are available at the time of this dictation. PAST MEDICAL HISTORY: Significant for ASHD status post CABG, status post PTCA and stent, history of dementia, history of hypertension, history of CVA, IDDM, schizoaffective disorder, and multiple myeloma. MEDICATIONS: In the detention included that of Risperdal, Percocet, Keppra, Norvasc, Fleet Enema, multivitamins, Toprol, Glucophage, milk of magnesia, insulin, Neurontin, Flonase, Vasotec, Aricept, Colace, p.o. Zithromax, Lipitor, aspirin, and Tylenol. ALLERGIES: PATIENT IS ALLERGIC TO CIPRO. CURRENT MEDICATIONS: In the hospital include that of cefepime and doxycycline, albuterol, subcu heparin, Lasix is on hold, and IV fluid normal saline 100 mL an hour. Patient was treated with Kayexalate and sorbitol x1 dose for his hyperkalemia. SOCIAL HISTORY: Patient does not smoke and never smoked. There is a past history of alcohol use. No history of substance abuse. FAMILY HISTORY: Unobtainable from the patient in light of his dementia. REVIEW OF SYSTEMS: Unobtainable from the patient in light of his dementia. PHYSICAL EXAMINATION: GENERAL: Patient is currently seen in CCU, bed 3. He is not speaking to me in a sensible way. He is arousable. VITAL SIGNS: Blood pressure 116/65, pulse of 69, temperature 99 with a respiratory rate of 17, pulse ox of 87%. HEENT: Shows him to be normocephalic, atraumatic. Conjunctivae are pale. Sclerae are nonicteric. Pupils equal, reactive to light, and accommodation. Extraocular muscles are intact. Posterior pharynx is normal. NECK: Supple. No neck vein distention or thyromegaly. No lymphadenopathy. No audible bruits. CHEST: Clear to auscultation and percussion with no rales, rhonchi, or wheezing. CARDIOVASCULAR: Regular rate and rhythm without audible murmurs, rubs, or gallops. ABDOMEN: Soft. Bowel sounds normal. No masses. No rebound or guarding. BACK: No CVAT. No spinal tenderness. EXTREMITIES: Show no lower extremity cyanosis, clubbing, or edema. Distal lower extremity pulses are 1 to 2+ bilaterally. NEUROLOGIC: Difficult to assess in light of his advanced dementia. LABORATORY DATA AND IMAGING STUDIES: Admitting chest x-ray showed a third rib destructive lesion with soft tissue mass, likely secondary to myeloma. Head CT showed no acute findings. Labs: CBC, white blood cell count 5.3, hemoglobin 8.6 with a platelet count of 233,000. Coags: PT of 14.9 with a PTT of 31.9. Blood gas today showed a pH of 7.37 with a pCO2 of 34 and a pO2 of 106. Lactate level was 2.3 on admission and is now down to 0.9. Chemistries: Today, sodium 149, potassium elevated at 5.7, CO2 of 19. BUN 92 with a creatinine of 6.9. Phosphorus level was 7.4 with a calcium of 9.4. Uric acid level is pending. Mild elevation of his liver enzymes. Albumin is 4.1. Urine showed trace protein, but otherwise unremarkable. Microbiology: No results available as of yet. ASSESSMENT: 1. Acute renal failure in a patient with no past history of chronic kidney disease. This is likely secondary to progressive myeloma. Possibilities include that of light chain nephropathy, no evidence for hypercalcemia. It is unknown what his uric acid level is. Patient could also likely have a myeloma kidney. I will order an abdominal ultrasound/CT scan to further assess his kidney size and to rule out any obstructive lesion. Patient has not had any fall in BUN and creatinine with IV fluid hydration over the last 24 hours. I will obtain a urine sodium, urine creatinine, urine Valentino stain. 2. Hyperkalemia. Potassium level needs to be lowered to less than 5.5. Should his BUN and creatinine continue to increase and his potassium level remain difficult to control, patient might be a candidate for dialysis. It appears that patient would have to have consent from the Guardian of the State as per what I was told. 3. History of multiple myeloma with history of anemia. Unclear to me what his pervious workup had been or how responsive his myeloma is to medication or if he has even seen a electronic assembly. 4. History of insulin-dependent diabetes mellitus. Continue sliding scale insulin. 5. History of hypertension. Blood pressure is currently controlled off blood pressure medication. We should avoid angiotensin-converting enzyme inhibition in light of his acute renal failure. Presently, patient is also off calcium channel kunal therapy and beta-kunal therapy. 6. History of schizoaffective disorder. Perhaps patient to be followed by Psychiatry. PLAN: 1. Discussed with ICU house staff, unleavened dough mixer, and patient's nurse. Concern here is that of the possible need for acute dialysis in this patient. We would need to obtain consents from his guardian, which appears to be the [facility]. There is also difficulty presently in obtaining dialysis in [facility] because the acute dialysis services are temporarily shutdown. Should patient require dialysis, should BUN and creatinine continue to rise, should his hyperkalemia become more difficult to control, patient will likely need to be transferred out of the hospital. 2. We will obtain renal ultrasound to assess kidney size and rule out obstructive uropathy. 3. Obtain uric acid level in light of his history of myeloma. 4. Discussed with house staff. We will switch patient over to IV fluids with sodium bicarbonate. This will help lower his potassium level and the CO2 level was 19. 5. Obtain urine Valentino stain. I doubt he has interstitial nephritis. 6. Avoid all potentially nephrotoxic agents. 7. Empiric antibiotic therapy as per hospitalist and unleavened dough mixer and Dr. Walsh. 8. Follow accurate I's and O's. 9. Follow daily labs. Greater than 35 minutes spent in the care of this critically ill patient. Vikas Ma MD MTDD
[2018-03-13 22:04] LABS: CALCIUM 9.2 mg/dL (8.4-10.5)
[2018-03-13] MEDS ORDERED: Sod Polystyrene Sulf 15 gm/60 ml Susp PR ONE (22:20)
[2018-03-13] MEDS ORDERED: Albuterol 0.5% Inhal Sol (2.5 mg/0.5 ml) UD IH STA (22:21)
[2018-03-13] MEDS ORDERED: Insulin Regular 1 UNITS/0.01 ML ML IVP ONE (22:23)
[2018-03-13 23:02] LABS: IMMUNOGLOBULIN A 3402.5 mg/dL (70.0-400.0)
[2018-03-14] MEDS ORDERED: Albuterol 0.083% Inhal Sol (2.5 mg/3 mL) UD ONE (00:14)
[2018-03-14] MEDS: Albuterol-Ipratrop 3 mg / 0.5 (3 ml) UD IH SCH ×5 (02:21→20:20)
[2018-03-14 02:33] LABS: CALCIUM 9.3 mg/dL (8.4-10.5)
[2018-03-14 06:03] LABS: ARTERIAL BLOOD GAS HCO3 20.7 mmol/L (21-28); ARTERIAL BLOOD GAS HEMOGLOBIN 8.6 g/dL (11.7-17.4); ARTERIAL BLOOD GAS O2 CONTENT 11.4 ML/dl (15-23); ARTERIAL BLOOD GAS O2 SAT 95.2 % (95-98); ARTERIAL BLOOD GAS PCO2 35 mm/Hg (35-45); ARTERIAL BLOOD GAS PH 7.38 (7.35-7.45); ARTERIAL BLOOD GAS TCO2 21.8 mmol.L (22-28)
[2018-03-14 06:17] LABS: MEAN CELL VOLUME 92.9 fl (80.0-105.0); MEAN CORPUSCULAR HEMOGLOBIN 30.1 pg (25.0-35.0); MEAN CORPUSCULAR HGB CONC 32.4 g/dl (31.0-37.0); MEAN PLATELET VOLUME 10.9 fl (7.0-11.0); RBC 2.66 10^6/uL (3.5-6.1); RED CELL DISTRIBUTION WIDTH 17.6 % (11.5-14.5); WHITE BLOOD COUNT 4.6 10^3/ul (4.5-11.0)
[2018-03-14 06:30] LABS: ALB/GLOB RATIO 0.7 (1.1-1.8); ALBUMIN 3.7 g/dL (3.0-4.8); CALCIUM 9.3 mg/dL (8.4-10.5); URIC ACID 12.9 mg/dL (3.5-8.5)
--- NOTE | 2018-03-14 09:33 | RAD ---
HISTORY: Above COMPARISON: No prior. FINDINGS: LUNGS: Lobulated right apical pleural thickening. Interstitial micro nodular appearing infiltrates in the right upper and midlung field as well as the left mid lung field. PLEURA: No significant pleural effusion identified, no pneumothorax apparent. CARDIOVASCULAR: Heart appears enlarged. OSSEOUS STRUCTURES: No significant abnormalities. VISUALIZED UPPER ABDOMEN: Normal. OTHER FINDINGS: None. IMPRESSION: Lobulated pleural thickening right lung apex. Bilateral interstitial infiltrates. Cardiomegaly.
--- NOTE | 2018-03-14 10:09 | PN ---
DATE: 03/14/2018 ASSISTANT CENTER DIRECTOR NOTE LOCATION: At [facility]. SUBJECTIVE: The patient is resting in bed with O2 face mask and O2 saturation is stable. The patient has some confusion. Note that he is significantly demented. The patient has no obvious pain. No respiratory distress at this time. PHYSICAL EXAMINATION: VITAL SIGNS: As far as physical exam, his temperature is 99.2, pulse is 90, respirations of 14 and BP is 122/66, O2 saturation is 98%. HEENT: Head is atraumatic, normocephalic. Eyes reactive to light. Ear, nose and throat seemed to be within normal limits. NECK: Supple. No JVD. No thyroid enlargement. No lymph nodes. HEART: Has regular rate and rhythm. Normal S1, S2. LUNGS: Reveal decreased breath sounds at the bases bilaterally. ABDOMEN: Soft. Decreased bowel sounds. GENITALIA AND RECTAL: Deferred. MUSCULOSKELETAL: No joint deformities. EXTREMITIES: Reveal trace lower extremity edema. NEUROLOGICAL: The patient is fairly lethargic and noted diagnosis of significant dementia. LABORATORY DATA: As far as his laboratories, the patient's white count is 4.6, hemoglobin is 8 and hematocrit is 24.7 with platelets of 235,000. The patient's sodium is 155, potassium 4.8, chloride 111, CO2 of 21 with a BUN of 86, creatinine of 7.3 and a glucose of 102. IMPRESSION: As far as my impression, this patient presented with congestive heart failure, noted to have coronary artery disease, stents placed in the past and left-sided pneumonia. The patient has acute renal failure with a history of multiple myeloma, anemia, diabetes and schizophrenia. PLAN: As far as our plan, we will continue with IV fluids of half normal saline. The patient is on O2 support and is getting DuoNeb as a bronchodilator, heparin subcu as well as doxycycline as an antibiotic. The patient is getting Protonix as well as cefepime and at this time his Lasix is on hold. We will continue to treat aggressively along with the other consultants and the primary care doctor. Rey Momin MD
--- NOTE | 2018-03-14 14:20 | PN ---
DATE: 03/14/2018 SUBJECTIVE: The patient is in bed in no acute distress, nontoxic. PHYSICAL EXAMINATION: VITAL SIGNS: On exam, temperature is 99, blood pressure is 120/60, respiratory rate of 14, heart rate of 92. HEENT: Examination of HEENT is unremarkable. NECK: Supple. LUNGS: Have decreased breath sounds. HEART: Normal S1, S2. ABDOMEN: Soft, nontender. LABORATORY DATA: Laboratory examination reveals a white count of 4.6, hemoglobin of 8, platelets of 239 and chemistries reveals a BUN of 86, creatinine of 7.3. LFTs are noted. Urinalysis is noted. Urine for Legionella antigen is negative. Microbiology reveals the blood cultures are negative. ASSESSMENT AND PLAN: A 77-year-old male who was seen earlier this morning in [facility], bed 3 with a history of severe dementia, psychosis, coronary artery disease, multiple myeloma, coronary bypass graft, who was admitted with change of mental status and hneyf-hs-dcypjpw renal failure with severe sepsis and right-sided healthcare-associated pneumonia, on intermittent vancomycin and cefepime and doxycycline day #2 with thus far negative blood cultures, negative urine for Legionella antigen, negative procalcitonin and normal white count. This morning's chest x-ray is pending results. Chest x-ray from 03/12 is reviewed. and resection of the right third rib soft tissue mass. We will follow closely with you. We will check on the final culture results. Kan Mcguire MD
--- NOTE | 2018-03-14 15:01 | PN ---
DATE: 03/14/2018 SUBJECTIVE: The patient is seen lying in bed in the ICU. He is awake, but very lethargic. He is talking, but not making any sense. He does not appear to be in any kind of respiratory distress. PHYSICAL EXAMINATION: GENERAL: Elderly male, lying in bed in the ICU. VITAL SIGNS: Blood pressure 122/60, heart rate 89, respiratory rate 16-20, temperature 98.4, T-max is 99.2. HEENT: Normocephalic, atraumatic, positive pallor. NECK: Supple. No JVD. LUNGS: Bilateral equal air entry, bilateral equal expansion, no rales appreciated anteriorly. CARDIAC: S1, S2, regular rate and rhythm, no murmur, no rub. ABDOMEN: Soft, nondistended, nontender, bowel sounds present. EXTREMITIES: No lower extremity edema. INTAKE AND OUTPUT: 2520/3125. LABORATORY DATA: WBC 4.6, hemoglobin 8, hematocrit 24.7, platelets 235. Sodium 155, potassium 4.8, chloride 111, CO2 of 21, anion gap is 23, BUN 86, creatinine 7.3, uric acid 12.9, calcium 9.3, phosphorus was 7.4 yesterday, AST 121, ALT 161, albumin 3.7. Urine sodium 119, urine creatinine 22, urine eosinophils negative. Serum immunoglobulins show elevated IgA. Blood gas, ABG: PH 7.38, pCO2 of 20.7, pO2 of 69. Urine culture, no growth. Blood culture, no growth so far. Renal ultrasound: Right kidney 12.9 cm, left kidney 12.3 cm, no hydronephrosis. CURRENT MEDICATIONS: Doxycycline 100 every 12, DuoNeb, heparin, Lasix 40 IV every 12 on hold. The patient did get a dose yesterday morning, Maxipime 1 g, Protonix, the patient is receiving half-normal saline with sodium bicarbonate of 50 mEq at 100 mL per hour. The patient received one dose of Kayexalate yesterday for a potassium of 6.1. ASSESSMENT: 1. Acute kidney injury in the setting of sepsis, pneumonia, history of multiple myeloma. 2. Hyperkalemia, resolved. The patient received one dose of Kayexalate yesterday. 3. Multiple myeloma, IgA type. 4. Map-yjdrhpq-jypkyrjwy diabetes mellitus. 5. Hypertension. 6. Schizophrenia. 7. Hypernatremia. 8. Anion gap metabolic acidosis. 9. Elevated globulins. PLAN: 1. Aggressive hydration is needed. Since the patient is hypernatremic, I will change IV fluids to D5W with 2 amps of bicarbonate at 100 mL per hour. 2. Continue antibiotics, dose for creatinine clearance less than 10 mL/minute. 3. Check urine for light chains. 4. Avoid nephrotoxins. 5. Continue to hold Lasix. 6. Treatment of multiple myeloma, IgA type as per Hematology/Oncology. 7. case discussed with ICU staff at length. 8. Case discussed with nursing staff. More than 35 minutes spent in the care of this critically ill patient. Mikaela Montes MD
[2018-03-14] MEDS: Sodium Bicarbonate 8.4% 50 MEQ in Dextrose 5% In Water 1,000 ML IV SCH (16:00)
--- NOTE | 2018-03-14 17:30 | PN ---
DATE: 03/14/2018 PULMONARY PROGRESS NOTE SUBJECTIVE: The patient is resting in the intensive care unit. He appears comfortable. He has oxygen on his forehead, which was moved to his face. He still appears a bit confused. His status was discussed with staff. There is no acute respiratory distress at this time. PHYSICAL EXAMINATION: GENERAL: The patient seems to be resting comfortably. VITAL SIGNS: He has a low-grade fever with rapid heart rate of 100, his respiratory rate is 18, blood pressure 120/70, O2 sat 98% when the oxygen is in place. HEENT: Normocephalic, atraumatic. PERRLA. EOMs full. Conjunctivae pink. NECK: Supple. No JVD. No bruit. No masses. No thyroid enlargement. HEART: Regular rhythm. S1, S2. A bit tachycardiac. Soft systolic ejection murmur presumed. CHEST: Global decrease in breath sounds, scattered rhonchi throughout both lung whitehead. ABDOMEN: Soft. Bowel sounds normoactive without mass, guarding, rebound or organomegaly. EXTREMITIES: Reveal no clubbing, cyanosis or edema. There is no Homans sign. NEUROLOGIC: Obtundation noted. No focal findings noted. History of dementia as per chart. LABORATORY DATA: Chest x-ray today continues to show persistent infiltrates in the right upper, right middle and left lingular area. This appears to be unchanged when compared to previous films. Laboratory studies remain stable with a normal white count. The patient clearly has azotemia with the BUN of 86 and creatinine of 7.3. CLINICAL IMPRESSION: 1. Bilateral pneumonia. 2. Pulmonary vascular congestion. 3. Coronary artery disease, status post stents. 4. Acute on chronic renal failure. 5. Multiple myeloma. 6. Diabetes mellitus. 7. History of schizophrenia. 8. Mental lethargy. PLAN: We will continue giving supportive care. Patient is receiving bronchodilators and antibiotics. He will be monitored closely. I agree that there is no need for Lasix at this time. Followup x-ray has been ordered for the morning. The patient will be needed to monitor closely. Code status needs to be determined. If I can be of any further help today, please do not hesitate to contact me. We will be available to help out in anyway possible. Followup chest x-ray in the morning as discussed above. Bernard Slater MD [facility] # [phone]
[2018-03-14] MEDS: Cefepime 1gm in NS 100ml 1 GM/100 ML BAG IVPB SCH ×2 (23:56)
[2018-03-15] MEDS: Sodium Bicarbonate 8.4% 50 MEQ in Dextrose 5% In Water 1,000 ML IV SCH (01:29)
[2018-03-15] MEDS: Albuterol-Ipratrop 3 mg / 0.5 (3 ml) UD IH SCH ×4 (02:03→21:20)
[2018-03-15 06:08] LABS: HEMOGLOBIN 7.8 g/dL (14.0-18.0); MEAN CELL VOLUME 92.7 fl (80.0-105.0); MEAN CORPUSCULAR HEMOGLOBIN 29.8 pg (25.0-35.0); MEAN CORPUSCULAR HGB CONC 32.1 g/dl (31.0-37.0); MEAN PLATELET VOLUME 10.7 fl (7.0-11.0); RBC 2.62 10^6/uL (3.5-6.1); RED CELL DISTRIBUTION WIDTH 17.6 % (11.5-14.5); WHITE BLOOD COUNT 4.5 10^3/ul (4.5-11.0)
[2018-03-15 06:24] LABS: ALB/GLOB RATIO 0.8 (1.1-1.8); ALBUMIN 3.9 g/dL (3.0-4.8); CALCIUM 9.3 mg/dL (8.4-10.5)
--- NOTE | 2018-03-15 09:01 | PN ---
DATE: 03/15/2018 COMPUTATIONAL GENETICIST NOTE LOCATION: [facility]. SUBJECTIVE: The patient is resting in bed with O2 via face mask. The patient continues to be confused. No obvious pain or respiratory distress. No fever, chills, nausea or vomiting. No diarrhea. PHYSICAL EXAMINATION: VITAL SIGNS: Physical exam note that his temperature is 98.4, pulse is 108, respirations are 13 and BP is 129/59. SKIN: Warm and dry. HEENT: Head: Atraumatic, normocephalic. Eyes: Reactive to light. Ears, nose and throat seemed to be within normal limits. NECK: Supple. No JVD. No thyroid enlargement. No lymph nodes. HEART: Has a regular rate and rhythm. Normal S1, S2. LUNGS: Reveal rare rhonchi at the bases. ABDOMEN: Soft. Decreased bowel sounds. GENITALIA AND RECTAL: Deferred. MUSCULOSKELETAL: No joint deformities. EXTREMITIES: Reveal trace lower extremity edema. NEUROLOGICAL: No change. LABORATORY DATA: As far as his laboratories, his white count is 4.5, hemoglobin is 7.8, hematocrit 24.3 with platelets of 236,000. His sodium is 153, potassium 4, chloride 107, CO2 of 26 with a BUN of 81, creatinine of 6.4 and glucose of 201. IMPRESSION: As far as my impression, the patient has congestive heart failure with coronary artery disease and stents placed and he is status post left-sided pneumonia. The patient has acute renal failure with a history of multiple myeloma, anemia, diabetes and schizophrenia. PLAN: As far as our plan, we will continue with IV fluids and O2 support along with DuoNeb as a bronchodilator. The patient is getting heparin subcu and is on antibiotics of doxycycline. He is getting Protonix, cefepime and we will continue to treat aggressively along with the other consultants and the primary care doctor. Rey Momin MD
--- NOTE | 2018-03-15 14:06 | PN ---
DATE: 03/15/2018 PULMONARY PROGRESS NOTE SUBJECTIVE: There is no change. The patient is in bed with resting comfortably. He actually looks more calm this morning, but remains obtunded. PHYSICAL EXAMINATION: VITAL SIGNS: Remain stable. He is afebrile, pulse 90, respiratory rate 14, blood pressure 130/60. HEENT: Normocephalic, atraumatic. Eyes: PERRLA. EOMs full. Conjunctivae pink. NECK: Supple. No JVD. No bruit. No lymphadenopathy. COR: Regular rhythm. S1, S2 without murmur, gallop or rub. LUNGS: Minimal rhonchi throughout both lung whitehead. No wheezing appreciated. ABDOMEN: Soft. Bowel sounds normoactive without mass, guarding, rebound or organomegaly. EXTREMITIES: Reveal no clubbing, cyanosis or edema. There is no Homans' sign. NEUROLOGIC: No change compared to the previous evaluation yesterday. LABORATORY DATA: No new laboratory data. No new studies are available this morning. Chest x-ray is yet to be completed. CLINICAL IMPRESSION: 1. Congestive heart failure. 2. Bilateral pneumonitis. 3. Acute renal insufficiency. 4. Multiple myeloma. 5. Schizophrenia. PLAN: Continue inhaled bronchodilators and antibiotics. Followup x-ray has been ordered. Case discussed with nurse on floor. We will follow closely with you. We will refer to Dr. Leroy who is covering in the morning. Close followup as required. Prognosis remains guarded for meaningful recovery. Thank you Dr. Slater. Bernard Slater MD
--- NOTE | 2018-03-15 15:33 | PN ---
DATE: 03/15/2018 SUBJECTIVE: The patient is in bed, in no acute distress, was seen earlier today in bed #3 in the ICU. He had an uneventful night. PHYSICAL EXAMINATION: VITAL SIGNS: Temperature is 98, blood pressure is 129/70, respiratory rate of 24, heart rate of 115. HEENT: Unremarkable. NECK: Supple. LUNGS: Decreased breath sounds. HEART: Normal S1, S2. ABDOMEN: Soft, nontender. LABORATORY EXAMINATION: Reveals a white count of 4.5, hemoglobin of 7, platelets of 236. Chemistries reveals a BUN of 81, creatinine of 6.4. Urinalysis is noted. Urine for Legionella antigen is negative. Microbiology reveals negative blood cultures, negative urine cultures. Patient's procalcitonin is 0.4. Review of orders reveals the patient to be on IV doxycycline, cefepime. Dr. Slater's note is reviewed from yesterday. Dr. Montes's note is reviewed. Yesterday's chest x-ray was read by Dr. Shiva Mckee. ASSESSMENT AND PLAN: A 77-year-old male seen earlier this morning with history of severe dementia, psychosis, coronary artery disease, multiple myeloma, coronary artery bypass graft, admitted with change of mental status, gdgry-jg-wiochng renal failure with severe sepsis and right-sided healthcare-associated pneumonia on intermittent vancomycin and day #3 of cefepime and doxycycline and negative procalcitonin and we will continue the present course and complete a short course of antibiotics. Kan Mcguire MD
[2018-03-15 15:50] LABS: CALCIUM 9.2 mg/dL (8.4-10.5)
--- NOTE | 2018-03-15 19:06 | PN ---
DATE: 03/15/2018 SUBJECTIVE: I saw Mr. Simmons in the Intensive Care Unit. He is talking to me this morning. He is improving everyday, more alert. Answered questions in [place]. He is comfortable. No pain. MEDICATIONS: He is on dextrose IV, doxycycline IV, DuoNeb, heparin, Lopressor, Maxipime IV, and Protonix. PHYSICAL EXAMINATION: VITAL SIGNS: There is a 98.1 temp, 96 pulse, 129/70 blood pressure, 19 respiratory rate, 97% O2 sat on room air. HEENT: His head is atraumatic, normocephalic. HEART: Regular rate. LUNGS: Decreased breath sounds, but clear. ABDOMEN: Soft. EXTREMITIES: No edema. NEUROLOGIC: He is more alert and talking, doing better. LABORATORY DATA: His white count is 4.5; hemoglobin is 7.8, I will call the utility agent about transfusing; hematocrit 24.3; platelets of 236. His chemistry, he has a 153 sodium, 4 potassium, BUN 81, creatinine 6.4, GFR , sugar is 201, calcium is 9.3, total bili is 0.3. AST is 83, ALT is 150, alk phos is 134, also improved a bit. Total protein is 8.8. ASSESSMENT AND PLAN: He is being seen by the utility agent, Pulmonary, Renal, and Infectious Disease. I am going to continue with aggressive treatment and care. He has severe dementia, psychosis, coronary artery disease, multiple myeloma, and coronary bypass graft history. He has change in mentation, acute on chronic renal failure with severe sepsis, right-sided healthcare-associated pneumonia. I do think he is starting to improve a little bit. Last chest x-ray was yesterday, and it shows lobulated pleural thickening, right lung apex bilateral interstitial infiltrates, and cardiomegaly. Continue aggressive treatment and care. Check the labs tomorrow. Jerzy Walsh DO MTDD
[2018-03-15] MEDS: Mupirocin 2% Ointment 15 GM TUBE NS SCH (19:19)
[2018-03-16] MEDS: Cefepime 1gm in NS 100ml 1 GM/100 ML BAG IVPB SCH (00:57)
[2018-03-16 01:20] LABS: CALCIUM 9.4 mg/dL (8.4-10.5)
[2018-03-16] MEDS: Timolol 0.25% Ophth SOLN OD SCH (05:49)
[2018-03-16 06:30] LABS: BASO # 0.02 K/mm3 (0.0-2.0); BASO % 0.4 % (0.0-3.0); EOS # 0.3 (0.0-0.7); EOS % 5.5 % (1.5-5.0); GRAN # 3.22 (1.4-6.5); GRAN % 65.1 % (50.0-68.0); HEMOGLOBIN 8.4 g/dL (14.0-18.0); LYMPH # 0.7 (1.2-3.4); LYMPH % 13.4 % (22.0-35.0); MEAN CORPUSCULAR HGB CONC 33.3 g/dl (31.0-37.0); MONO # 0.8 (0.1-0.6); MONO % 15.6 % (1.0-6.0); RBC 2.71 10^6/uL (3.5-6.1); RED CELL DISTRIBUTION WIDTH 17.7 % (11.5-14.5); WHITE BLOOD COUNT 4.9 10^3/ul (4.5-11.0)
[2018-03-16 06:43] LABS: ARTERIAL BLOOD GAS HCO3 25.7 mmol/L (21-28); ARTERIAL BLOOD GAS HEMOGLOBIN 7.7 g/dL (11.7-17.4); ARTERIAL BLOOD GAS O2 CAPACITY 10.7 mL/dl (16-24); ARTERIAL BLOOD GAS O2 CONTENT 10.6 ML/dl (15-23); ARTERIAL BLOOD GAS O2 SAT 98.8 % (95-98); ARTERIAL BLOOD GAS PCO2 37 mm/Hg (35-45); ARTERIAL BLOOD GAS PH 7.45 (7.35-7.45); ARTERIAL BLOOD GAS TCO2 26.8 mmol.L (22-28)
[2018-03-16 07:12] LABS: ALB/GLOB RATIO 0.8 (1.1-1.8); ALBUMIN 3.9 g/dL (3.0-4.8); CALCIUM 9.5 mg/dL (8.4-10.5)
--- NOTE | 2018-03-16 07:18 | PN ---
DATE: 03/16/2018([id number]) PULMONARY NOTE SUBJECTIVE: The patient appears more comfortable this morning. He is not short of breath at rest. OBJECTIVE: VITAL SIGNS: Temperature is 97.6, pulse on the monitor is 91, respiratory rate 18, blood pressure 120/62. Oxygen saturation on nasal cannula is 96%. HEENT: Normocephalic, atraumatic. No JVD. CARDIOVASCULAR: Positive S1, S2. Positive S3 gallop. LUNGS: Crackles at both bases are appreciated. Minimal bilateral rhonchi. No wheezing. EXTREMITIES: No clubbing, cyanosis or edema. Calves are nontender to palpation. GI: Abdomen is soft, nontender and nondistended. Bowel sounds are positive. SKIN: No acute rash. NEUROLOGIC: Exam limited at the present time. PERTINENT LABORATORY DATA: Chest x-ray was done this morning and reviewed. There is less pulmonary vascular congestion noted. There is chronic right apical pleural thickening. There appears to be an artifact at the left base. There are less right lower lobe changes noted. Arterial blood gas was ordered for this morning - not done yet. IMPRESSION: 1. Acute congestive heart failure. 2. Acute renal insufficiency. 3. Rule out pneumonia - right lower lobe. 4. Hypoxemia - improving. 5. Chronic anemia. 6. Probable multiple myeloma. 7. Encephalopathy - improved. 8. Coronary artery disease. PLAN: The patient appears comfortable this morning. He is not short of breath at rest. I did discuss the case with the night nurse at length. The night nurse stated that the patient had a very good night. I did review the chest x-ray as above. There is less pulmonary vascular congestion noted. As above, there appears to be an artifact at the left base. I will repeat the chest x-ray in the morning - for comparison. As above, there also appears to be less right lower lobe changes. I would continue with the current antibiotic therapy - as per Infectious Disease. Input by Dr. Mcguire is noted. Again, there is also an arterial blood gas ordered. I will check that when feasible. Inputs by Renal and Cardiology are also noted.The patient remains on intravenous lasix. Clinical status of the patient is definitely improved - compared to the initial presentation. However, his future status/prognosis does remain very guarded. I will discuss the above with the entire ICU team in the next few moments. I will discuss the above with Dr. Walsh later this morning. Jose Leroy MD MTDRadha
[2018-03-16] MEDS: Albuterol-Ipratrop 3 mg / 0.5 (3 ml) UD IH SCH ×3 (07:56→19:38)
--- NOTE | 2018-03-16 08:46 | PN ---
DATE: 03/15/2018 CARDIOLOGY FOLLOWUP SUBJECTIVE: The patient is in bed, confused, no shortness of breath. PHYSICAL EXAMINATION: VITAL SIGNS: Blood pressure 129/70, the heart rate is 110, sinus tachycardia. NECK: Negative JVD. LUNGS: Bilateral rhonchi. HEART: S1, S2. EXTREMITIES: Without edema. LABORATORY DATA: BUN and creatinine are 81 and 6.4. His echocardiogram reveals good LV function and tahd-[id number] pulmonary hypertension. IMPRESSION: 1. Renal insufficiency.. 2. History of schizophrenia. 3. History of coronary artery bypass surgery. 4. Dementia. 5. Lethargy. Given these findings, because of the patient's sinus tachycardia is unclear, we will add beta-blockers to his regimen. Rusty Horton MD
--- NOTE | 2018-03-16 09:09 | PN ---
DATE: 03/14/2018 SUBJECTIVE: I saw the patient resting comfortably in the Intensive Care Unit. He is alert this morning. His eyes are open, and he is looking at me. He could not do that yesterday. He is on doxycycline, DuoNeb, heparin, Lasix which is on hold, Maxipime, Protonix, and sodium bicarbonate. PHYSICAL EXAMINATION: VITAL SIGNS: He has a 98.4 temperature, 89 pulse, 122/60 blood pressure, 13 respiratory rate, 100% O2 sat on oxygen. HEENT: Head is atraumatic, normocephalic. His eyes are open. He is moving his head, looked at me, nonverbal. HEART: Regular rate. LUNGS: Decreased breath sounds. ABDOMEN: Soft. EXTREMITIES: No edema. LABORATORY DATA: He has a 4.6 white count, 8 hemoglobin, 24.7 hematocrit with a 235 platelets. He has a 155 sodium, potassium of 4.8, BUN 86, creatinine 7.3, sugar is 102, uric acid 12.9, total bilirubin is 0.4, AST is 121, ALT is 161, alkaline phosphatase is 145, total protein is 8.6. IgG is elevated, IgE is elevated, IgM is elevated. Negative for legionella. He is being seen by the electric blanket packer, Oncology, Renal, Cardiology. He has bilateral infiltrates. His kidney functions are very bad. As per Renal, Infectious Disease, Pulmonary, Cardiology, Hematology, continue with aggressive treatment and care. He is definitely very ill. Multiple problems from congestive heart failure, anemia, bilateral pneumonia, rib mass, Alzheimer disease, acute kidney injury may be leading to end-stage renal disease. We will check his labs tomorrow. Jerzy Walsh DO
--- NOTE | 2018-03-16 09:11 | CP.PCM.CON ---
History of Present Illness - History of Present Illness History of Present Illness: Palliative consult requested by Dr Sheree Walsh Reason: Goals of care 77 year old male resident of [facility] with history of CAD s/p CABG, Alzheimer disease, psychosis who was sent from [place] with lethargy and decreased 02 sat on 03/12/18. 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 Chest x ray showed destruction of right 3rd rib with associated soft tissue mass. Immunology testing showed elevated IGG, IGA IgM. He was also found to be anemic, Hgb 7.5, AST, ALT, AlK Phos elevated. Vitals Signs: P 98, BP 120/60, R 19, 02 sat 95%, T 98.0 PMHx: Alzheimer, CAD s/p CABG, lytic lesions possible multiple myeloma, DM Social History: As per previous records, never smoker, no alcohol or drug use. Resident of [facility] Family History: Unknown Advance Care Planning: There is no Advanced Directive on the chart. The patient has a court appointed guardian, phone # [phone] Review of Systems: As per HPI, unable to obtain, patient is altered Past Patient History - Infectious Disease Hx of Infectious Diseases: None - Past Medical History & Family History Past Medical History?: Yes - Past Social History Smoking Status: Never Smoked - CARDIAC Hx Cardiac Disorders: Yes - PULMONARY Hx Tuberculosis: No - NEUROLOGICAL HX Cerebrovascular Accident: Yes - HEENT Hx HEENT Problems: No - RENAL Hx Chronic Kidney Disease: No - ENDOCRINE/METABOLIC Hx Diabetes Mellitus Type 2: Yes - HEMATOLOGICAL/ONCOLOGICAL Hx Anemia: Yes Hx Cancer: Yes Other/Comment: multiple myeloma? - INTEGUMENTARY Hx Dermatological Problems: No - MUSCULOSKELETAL/RHEUMATOLOGICAL Hx Arthritis: Yes - GASTROINTESTINAL Hx Gastrointestinal Disorders: Yes - GENITOURINARY/GYNECOLOGICAL Hx Sexually Transmitted Disorders: No - PSYCHIATRIC Hx Psychosis: Yes - SURGICAL HISTORY Hx Surgeries: Yes Hx Coronary Stent: Yes Other/Comment: cabg - ANESTHESIA Hx Anesthesia: Yes Hx Anesthesia Reactions: No Hx Malignant Hyperthermia: No Meds Allergies/Adverse Reactions: Allergies Allergy/AdvReac Type Severity Reaction Status Date / Time ciprofloxacin AdvReac RASH Verified 12/23/17 11:33 - Medications Medications: Current Medications Albuterol/Ipratropium (Duoneb 3 Mg/0.5 Mg (3 Ml) Ud) 3 ml IH [id number] [facility] Last Admin: 03/16/18 07:56 Dose: 3 ml Amlodipine Besylate (Norvasc) 2.5 mg PO DAILY [facility] Fluticasone Propionate (Flonase) 0 actuation NS DAILY [facility] Furosemide (Lasix) 40 mg IVP Q12 [facility] Last Admin: 03/13/18 09:01 Dose: 40 mg Gabapentin (Neurontin) 100 mg PO HS LONG PRN Reason: Protocol Last Admin: 03/15/18 21:35 Dose: 100 mg Heparin Sodium (Porcine) (Heparin) 5,000 units SC Q8 LONG PRN Reason: Protocol Last Admin: 03/16/18 05:49 Dose: 5,000 units Cefepime HCl (Maxipime 1gm) 1 gm in 100 mls @ 100 mls/hr IVPB Q24H LONG PRN Reason: Protocol Last Admin: 03/16/18 00:57 Dose: 100 mls/hr Doxycycline Hyclate 100 mg/ (Sodium Chloride) 100 mls @ 100 mls/hr IVPB Q12 LONG PRN Reason: Protocol Last Admin: 03/15/18 21:36 Dose: 100 mls/hr Dextrose (Dextrose 5% In Water 1000 Ml) 1,000 mls @ 100 mls/hr IV .Q10H [facility] Levetiracetam (Keppra) 500 mg PO Q12 [facility] Last Admin: 03/15/18 21:35 Dose: 500 mg Metoprolol Tartrate (Lopressor) 25 mg PO BID [facility] Last Admin: 03/15/18 17:52 Dose: 25 mg Mupirocin (Bactroban Ointment) 0 gm NS BID [facility] Stop: 03/20/18 10:01 Last Admin: 03/15/18 19:19 Dose: 1 applic Pantoprazole Sodium (Protonix Inj) 40 mg IVP DAILY [facility] Last Admin: 03/15/18 09:23 Dose: 40 mg Risperidone (Risperdal Tab) 0.5 mg PO BID [facility] PRN Reason: Protocol Last Admin: 03/15/18 21:35 Dose: 0.5 mg Timolol Maleate (Timoptic 0.25% Ophth Soln) 1 drop OD 0630 [facility] Last Admin: 03/16/18 05:49 Dose: 1 drop Physical Exam - Constitutional Appears: Chronically Ill - Head Exam Head Exam: NORMAL INSPECTION - Eye Exam Eye Exam: Normal appearance, PERRL - ENT Exam ENT Exam: Mucous Membranes Moist, Normal Oropharynx - Neck Exam Neck exam: Positive for: Normal Inspection - Respiratory Exam Respiratory Exam: Clear to Auscultation Bilateral, NORMAL BREATHING PATTERN - Cardiovascular Exam Cardiovascular Exam: REGULAR RHYTHM, +S1, +S2 - GI/Abdominal Exam GI & Abdominal Exam: Normal Bowel Sounds, Soft - Back Exam Back exam: NORMAL INSPECTION - Neurological Exam Neurological exam: Altered - Skin Skin Exam: Dry, Pallor - Additional Findings Additional findings: Palliative performance scale rating 30 % Results - Vital Signs Recent Vital Signs: Last Vital Signs Temp 97.6 F 03/16/18 04:00 Pulse 98 H 03/16/18 06:00 Resp 21 03/16/18 04:59 BP 120/62 03/16/18 05:00 Pulse Ox 90 L 03/16/18 04:59 - Labs Result Diagrams: 03/16/18 05:30 03/16/18 05:30 Labs: Laboratory Results - last 24 hr 03/14/18 03/15/18 03/16/18 05:30 15:16 00:35 WBC RBC Hgb Hct MCV MCH MCHC RDW Plt Count MPV Gran % Lymph % (Auto) Benson % (Auto) Eos % (Auto) Baso % (Auto) Gran # Lymph # (Auto) Benson # (Auto) Eos # (Auto) Baso # (Auto) pCO2 pO2 HCO3 ABG pH ABG Total CO2 ABG O2 Saturation ABG O2 Content ABG Base Excess ABG Hemoglobin ABG Carboxyhemoglobin POC ABG HHb (Measured) ABG Methemoglobin ABG O2 Capacity Hgb O2 Saturation FiO2 Sodium 152 H 153 H Potassium 4.0 3.8 Chloride 106 107 Carbon Dioxide 27 27 Anion Gap 22 H 23 H BUN 80 H 70 H Creatinine 5.6 H 5.4 H Est GFR ( Amer) 12 13 Est GFR (Non-Af Amer) 10 10 Random Glucose 159 H 152 H Hemoglobin A1c 7.5 H Calcium 9.2 9.4 Phosphorus Magnesium Total Bilirubin AST ALT Alkaline Phosphatase Total Protein Albumin Globulin Albumin/Globulin Ratio 03/16/18 03/16/18 03/16/18 05:30 05:30 06:00 WBC 4.9 RBC 2.71 L Hgb 8.4 L Hct 25.2 L MCV 93.0 MCH 31.0 MCHC 33.3 RDW 17.7 H Plt Count 251 MPV 11.0 Gran % 65.1 Lymph % (Auto) 13.4 L Benson % (Auto) 15.6 H Eos % (Auto) 5.5 H Baso % (Auto) 0.4 Gran # 3.22 Lymph # (Auto) 0.7 L Benson # (Auto) 0.8 H Eos # (Auto) 0.3 Baso # (Auto) 0.02 pCO2 37 pO2 99.0 HCO3 25.7 ABG pH 7.45 ABG Total CO2 26.8 ABG O2 Saturation 98.8 H ABG O2 Content 10.6 L ABG Base Excess 1.6 ABG Hemoglobin 7.7 L ABG Carboxyhemoglobin 1.9 H POC ABG HHb (Measured) 1.2 ABG Methemoglobin 0.7 ABG O2 Capacity 10.7 L Hgb O2 Saturation 96.2 FiO2 32.0 Sodium 151 H Potassium 3.9 Chloride 107 Carbon Dioxide 26 Anion Gap 22 H BUN 70 H Creatinine 5.0 H Est GFR ( Amer) 14 Est GFR (Non-Af Amer) 11 Random Glucose 143 H Hemoglobin A1c Calcium 9.5 Phosphorus 6.6 H Magnesium 1.4 L Total Bilirubin 0.4 AST 68 H ALT 124 H Alkaline Phosphatase 136 H Total Protein 8.9 H Albumin 3.9 Globulin 5.0 Albumin/Globulin Ratio 0.8 L Assessment & Plan - Assessment and Plan (Free Text) Assessment: 77 year old male with history of CAD s/p CABG, Alzheimer's, psychosis, who as found to have lytic bone lesions on this admission, likely Multiple Myeloma. He is admitted with dehydration, BIPIN,pneumonia, hypernatremia lethargy The patient has a public guardian. In light of new findings which are suggestive of advanced malignancy, intent would be to initiate advance care planning. Voice message left for public guardian Plan: Goals of care and advance care planning Dehydration: Resolved ID: continue Vancomycin, Maxipime and Doxycycline Renal: Continue IVF's, monitor labs Oncology:Immunology testing done. Will likely need further work up/ bone marrow biopsy in the future Neurology: Head CT negative. Improved to baseline
--- NOTE | 2018-03-16 09:51 | RAD ---
HISTORY: SOB COMPARISON: 03/14/2018 FINDINGS: LUNGS: There is improvement in bilateral infiltrates. PLEURA: There is rib destruction and a soft tissue mass in the right apex unchanged CARDIOVASCULAR: Normal. OSSEOUS STRUCTURES: No significant abnormalities. VISUALIZED UPPER ABDOMEN: Normal. OTHER FINDINGS: None. IMPRESSION: Improvement in bilateral infiltrates
--- NOTE | 2018-03-16 12:09 | PN ---
DATE: 03/16/2018 CARDIOLOGY FOLLOWUP SUBJECTIVE: The patient's breathing is better today. PHYSICAL EXAMINATION VITAL SIGNS: Blood pressure is 120/62, the heart rate is in the 80s, atrial fibrillation. NECK: Negative JVD. LUNGS: Decreased breath sounds. HEART: Reveals S1 and S2. EXTREMITIES: Without edema. LABORATORY DATA: Hemoglobin is 8.4. Chemistries: BUN and creatinine is 70 and 5. IMPRESSION: 1. Atrial fibrillation with the heart rate is well-controlled. 2. Improvement of his respiratory status. 3. Hypertension is stable. PLAN: Given these findings, we will need to make decisions on whether the patient can be safely anticoagulated for his atrial fibrillation. Rusty Horton MD
--- NOTE | 2018-03-16 13:12 | CP.CCUPN ---
<Josef Adrian - Last Filed: 03/16/18 13:08> CCU Subjective - Physician Review Events Since Last Encounter (Free Text): 03/16/18 10:30 Patient seen and examined at bedside, no acute events overnight, patient is doing well, resting comfortably. History limited 2/2 demential. CCU Objective - Vital Signs / Intake & Output Intake and Output (Last 8hrs): Intake & Output 03/15/18 03/16/18 03/16/18 22:59 06:59 14:59 Intake Total 1040 1400 Output Total 1300 1400 Balance -260 0 Weight 67.54 kg Intake: IV 800 1400 Right Antecubital 800 abx 200 d5w 1200 Oral 240 Output: Urine 1300 1400 Urethral (Go) 1300 1400 - Physical Exam Head: Positive for: Atraumatic, Normocephalic Pupils: Positive for: PERRL Extroacular Muscles: Positive for: EOMI Conjunctiva: Positive for: Normal Mouth: Positive for: Dry Neck: Positive for: Normal Range of Motion. Negative for: Meningeal Signs, MIDLINE TENDERNESS, Paraspinal Tenderness Respiratory/Chest: Positive for: Good Air Exchange, Decreased Breath Sounds (b/ l lung bases), Rales. Negative for: Respiratory Distress, Accessory Muscle Use Cardiovascular: Positive for: Regular Rate and Rhythm, Normal S1, S2. Negative for: Murmurs Abdomen: Negative for: Tenderness, Distention, Peritoneal Signs Upper Extremity: Positive for: Normal Inspection. Negative for: Cyanosis, Edema Lower Extremity: Positive for: Normal Inspection. Negative for: Edema Neurological: Positive for: Other (Drowsy but arousable to noxious stimuli GCS = 2+3+5) - Medications Active Medications: Active Medications Generic Name Dose Route Start Last Admin Trade Name Freq PRN Reason Stop Dose Admin Albuterol/Ipratropium 3 ml 03/13/18 14:00 03/16/18 07:56 Duoneb 3 Mg/0.5 Mg (3 Ml) Ud IH 3 ml [id number] LONG Administration Amlodipine Besylate 2.5 mg 03/16/18 10:00 Norvasc PO DAILY LONG Fluticasone Propionate 0 actuation 03/16/18 10:00 Flonase NS DAILY LONG Furosemide 40 mg 03/13/18 10:00 03/13/18 09:01 Lasix IVP 40 mg Q12 LONG Administration Gabapentin 100 mg 03/15/18 22:00 03/15/18 21:35 Neurontin PO 100 mg HS LONG Administration Protocol Heparin Sodium (Porcine) 5,000 units 03/13/18 14:00 03/16/18 05:49 Heparin SC 5,000 units Q8 LONG Administration Protocol Cefepime HCl 1 gm in 100 mls @ 100 mls/hr 03/14/18 00:00 03/16/18 00:57 Maxipime 1gm IVPB 100 mls/hr Q24H LONG Administration Protocol Doxycycline Hyclate 100 mg/ 100 mls @ 100 mls/hr 03/13/18 22:00 03/16/18 10: 14 Sodium Chloride IVPB 100 mls/hr Q12 LONG Administration Protocol Dextrose 1,000 mls @ 100 mls/hr 03/16/18 01:57 Dextrose 5% In Water 1000 Ml IV .Q10H LONG Levetiracetam 500 mg 03/15/18 22:00 03/15/18 21:35 Keppra PO 500 mg Q12 LONG Administration Metoprolol Tartrate 25 mg 03/15/18 18:00 03/15/18 17:52 Lopressor PO 25 mg BID LONG Administration Mupirocin 0 gm 03/15/18 18:00 03/15/18 19:19 Bactroban Ointment NS 03/20/18 10:01 1 applic BID LOGN Administration Pantoprazole Sodium 40 mg 03/13/18 10:00 03/16/18 10:15 Protonix Inj IVP 40 mg DAILY LONG Administration Risperidone 0.5 mg 03/15/18 21:30 03/15/18 21:35 Risperdal Tab PO 0.5 mg BID [facility] Administration Protocol Timolol Maleate 1 drop 03/16/18 06:30 03/16/18 05:49 Timoptic 0.25% Ophth Soln OD 1 drop 0630 [facility] Administration - Patient Studies Lab Studies: Microbiology Studies 03/13/18 04:00 MRSA Culture (Admit) - Final Nose Lab Studies 03/16/18 03/16/18 03/16/18 Range/Units 06:00 05:30 05:30 WBC 4.9 (4.5-11.0) 10^3/ul RBC 2.71 L (3.5-6.1) 10^6/uL Hgb 8.4 L (14.0-18.0) g/dL Hct 25.2 L (42.0-52.0) % MCV 93.0 (80.0-105.0) fl MCH 31.0 (25.0-35.0) pg MCHC 33.3 (31.0-37.0) g/dl RDW 17.7 H (11.5-14.5) % Plt Count 251 (120.0-450.0) 10^3/uL MPV 11.0 (7.0-11.0) fl Gran % 65.1 (50.0-68.0) % Lymph % (Auto) 13.4 L (22.0-35.0) % [place] % (Auto) 15.6 H (1.0-6.0) % Eos % (Auto) 5.5 H (1.5-5.0) % Baso % (Auto) 0.4 (0.0-3.0) % Gran # 3.22 (1.4-6.5) Lymph # (Auto) 0.7 L (1.2-3.4) [place] # (Auto) 0.8 H (0.1-0.6) Eos # (Auto) 0.3 (0.0-0.7) Baso # (Auto) 0.02 (0.0-2.0) K/mm3 pCO2 37 (35-45) mm/Hg pO2 99.0 (80-100) mm/Hg HCO3 25.7 (21-28) mmol/L ABG pH 7.45 (7.35-7.45) ABG Total CO2 26.8 (22-28) mmol.L ABG O2 Saturation 98.8 H (95-98) % ABG O2 Content 10.6 L (15-23) ML/dl ABG Base Excess 1.6 (-2.0-3.0) mmol/L ABG Hemoglobin 7.7 L (11.7-17.4) g/dL ABG Carboxyhemoglobin 1.9 H (0.5-1.5) % POC ABG HHb (Measured) 1.2 (0-5) % ABG Methemoglobin 0.7 (0.0-3.0) % ABG O2 Capacity 10.7 L (16-24) mL/dl Hgb O2 Saturation 96.2 (95.0-98.0) % FiO2 32.0 % Sodium 151 H (132-148) mmol/L Potassium 3.9 (3.6-5.0) mmol/L Chloride 107 (98-107) mmol/L Carbon Dioxide 26 (21-33) mmol/L Anion Gap 22 H (10-20) BUN 70 H (7-21) mg/dL Creatinine 5.0 H (0.8-1.5) mg/dl Est GFR ( Amer) 14 Est GFR (Non-Af Amer) 11 Random Glucose 143 H (70-110) mg/dL Calcium 9.5 (8.4-10.5) mg/dL Phosphorus 6.6 H (2.5-4.5) mg/dL Magnesium 1.4 L (1.7-2.2) mg/dL Total Bilirubin 0.4 (0.2-1.3) mg/dL AST 68 H (17-59) U/L ALT 124 H (7-56) U/L Alkaline Phosphatase 136 H (38-126) U/L Total Protein 8.9 H (5.8-8.3) g/dL Albumin 3.9 (3.0-4.8) g/dL Globulin 5.0 gm/dL Albumin/Globulin Ratio 0.8 L (1.1-1.8) 18 03/15/18 Range/Units 00:35 15:16 WBC (4.5-11.0) 10^3/ul RBC (3.5-6.1) 10^6/uL Hgb (14.0-18.0) g/dL Hct (42.0-52.0) % MCV (80.0-105.0) fl MCH (25.0-35.0) pg MCHC (31.0-37.0) g/dl RDW (11.5-14.5) % Plt Count (120.0-450.0) 10^3/uL MPV (7.0-11.0) fl Gran % (50.0-68.0) % Lymph % (Auto) (22.0-35.0) % [place] % (Auto) (1.0-6.0) % Eos % (Auto) (1.5-5.0) % Baso % (Auto) (0.0-3.0) % Gran # (1.4-6.5) Lymph # (Auto) (1.2-3.4) [place] # (Auto) (0.1-0.6) Eos # (Auto) (0.0-0.7) Baso # (Auto) (0.0-2.0) K/mm3 pCO2 (35-45) mm/Hg pO2 (80-100) mm/Hg HCO3 (21-28) mmol/L ABG pH (7.35-7.45) ABG Total CO2 (22-28) mmol.L ABG O2 Saturation (95-98) % ABG O2 Content (15-23) ML/dl ABG Base Excess (-2.0-3.0) mmol/L ABG Hemoglobin (11.7-17.4) g/dL ABG Carboxyhemoglobin (0.5-1.5) % POC ABG HHb (Measured) (0-5) % ABG Methemoglobin (0.0-3.0) % ABG O2 Capacity (16-24) mL/dl Hgb O2 Saturation (95.0-98.0) % FiO2 % Sodium 153 H 152 H (132-148) mmol/L Potassium 3.8 4.0 (3.6-5.0) mmol/L Chloride 107 106 (98-107) mmol/L Carbon Dioxide 27 27 (21-33) mmol/L Anion Gap 23 H 22 H (10-20) BUN 70 H 80 H (7-21) mg/dL Creatinine 5.4 H 5.6 H (0.8-1.5) mg/dl Est GFR ( Amer) 13 12 Est GFR (Non-Af Amer) 10 10 Random Glucose 152 H 159 H (70-110) mg/dL Calcium 9.4 9.2 (8.4-10.5) mg/dL Phosphorus (2.5-4.5) mg/dL Magnesium (1.7-2.2) mg/dL Total Bilirubin (0.2-1.3) mg/dL AST (17-59) U/L ALT (7-56) U/L Alkaline Phosphatase (38-126) U/L Total Protein (5.8-8.3) g/dL Albumin (3.0-4.8) g/dL Globulin gm/dL Albumin/Globulin Ratio (1.1-1.8) Laboratory Results - last 24 hr 03/15/18 03/16/18 03/16/18 15:16 00:35 05:30 WBC 4.9 RBC 2.71 L Hgb 8.4 L Hct 25.2 L MCV 93.0 MCH 31.0 MCHC 33.3 RDW 17.7 H Plt Count 251 MPV 11.0 Gran % 65.1 Lymph % (Auto) 13.4 L [place] % (Auto) 15.6 H Eos % (Auto) 5.5 H Baso % (Auto) 0.4 Gran # 3.22 Lymph # (Auto) 0.7 L [place] # (Auto) 0.8 H Eos # (Auto) 0.3 Baso # (Auto) 0.02 pCO2 pO2 HCO3 ABG pH ABG Total CO2 ABG O2 Saturation ABG O2 Content ABG Base Excess ABG Hemoglobin ABG Carboxyhemoglobin POC ABG HHb (Measured) ABG Methemoglobin ABG O2 Capacity Hgb O2 Saturation FiO2 Sodium 152 H 153 H Potassium 4.0 3.8 Chloride 106 107 Carbon Dioxide 27 27 Anion Gap 22 H 23 H BUN 80 H 70 H Creatinine 5.6 H 5.4 H Est GFR ( Amer) 12 13 Est GFR (Non-Af Amer) 10 10 Random Glucose 159 H 152 H Calcium 9.2 9.4 Phosphorus Magnesium Total Bilirubin AST ALT Alkaline Phosphatase Total Protein Albumin Globulin Albumin/Globulin Ratio 03/16/18 03/16/18 05:30 06:00 WBC RBC Hgb Hct MCV MCH MCHC RDW Plt Count MPV Gran % Lymph % (Auto) [place] % (Auto) Eos % (Auto) Baso % (Auto) Gran # Lymph # (Auto) [place] # (Auto) Eos # (Auto) Baso # (Auto) pCO2 37 pO2 99.0 HCO3 25.7 ABG pH 7.45 ABG Total CO2 26.8 ABG O2 Saturation 98.8 H ABG O2 Content 10.6 L ABG Base Excess 1.6 ABG Hemoglobin 7.7 L ABG Carboxyhemoglobin 1.9 H POC ABG HHb (Measured) 1.2 ABG Methemoglobin 0.7 ABG O2 Capacity 10.7 L Hgb O2 Saturation 96.2 FiO2 32.0 Sodium 151 H Potassium 3.9 Chloride 107 Carbon Dioxide 26 Anion Gap 22 H BUN 70 H Creatinine 5.0 H Est GFR ( Amer) 14 Est GFR (Non-Af Amer) 11 Random Glucose 143 H Calcium 9.5 Phosphorus 6.6 H Magnesium 1.4 L Total Bilirubin 0.4 AST 68 H ALT 124 H Alkaline Phosphatase 136 H Total Protein 8.9 H Albumin 3.9 Globulin 5.0 Albumin/Globulin Ratio 0.8 L Fingerstick Blood Sugar Results: 103 Critical Care Progress Note - Nutrition Nutrition: Nutrition Category Date Time Status Liquid Diet [DIET] Diets 03/15/18 Dinner Ordered Assessment/Plan - Assessment and Plan (Free Text) Assessment: Mr Simmons, 77 year old male, a terrell of state guardianship due to advance dementia, with Hx PMHx CAD s/p CABG, DM, Alzheimer's disease, psychosis, malignancy with mets to the bone (likely multiple myeloma) who presents from [facility] for lethargy and fluctuating oxygenation saturation to 80s on RA. A: Hypoxic respiratory failure possibly due to pneumonia, HCAP BIPIN, most likely Renal based on BUN/CR ratio < 20 - Improving CR Encephalopathy, hypoxic vs metabolic Neurological GCS 10 risperdal for Schizophrenia; Keppra [id number] Neuro check q1 Cardiology Monitor for hypotension IVF with D5 Pulmonology Duoneb Q6 LONG 3L NC MRSA in nares - bactroban Gastroenterology NPO until swallow evaluation Protonix IVP Renal Monitor U/O - good urine output despite BIPIN Go Defer to Dr. Ma for BIPIN work up Endocrine Maintain blood glucose 140-180 A1C 8.7 (2016) Infectious Disease Cefepime and Doxycycline (has been given a dose of Zithromax in the ED) ID Consult Heme R rib mass - onc consult per primary Prophylaxis Protonix Heparin SC Dispo: Palliative consult today, discussed with Dr. Walsh. Will discuss DNR/ DNI with guardian. At this time, patient stable for transfer to [facility] <Bird Jenkins B - Last Filed: 03/16/18 15:14> CCU Objective - Vital Signs / Intake & Output Vital Signs (Last 4 hours): Vital Signs Pulse Resp BP Pulse Ox 03/16/18 13:00 90 19 133/58 L 91 L 03/16/18 12:01 116 H 21 109/48 L 86 L 03/16/18 12:00 107 H 99 H 85 L Intake and Output (Last 8hrs): Intake & Output 03/16/18 03/16/18 03/16/18 06:59 14:59 22:59 Intake Total 1400 Output Total 1400 Balance 0 Weight 148 lb 14.4 oz Intake: IV 1400 abx 200 d5w 1200 Output: Urine 1400 Urethral (Go) 1400 - Medications Active Medications: Active Medications Generic Name Dose Route Start Last Admin Trade Name Freq PRN Reason Stop Dose Admin Albuterol/Ipratropium 3 ml 03/13/18 14:00 03/16/18 13:51 Duoneb 3 Mg/0.5 Mg (3 Ml) Ud IH 3 ml [id number] LONG Administration Amlodipine Besylate 2.5 mg 03/16/18 10:00 03/16/18 14:27 Norvasc PO Not Given DAILY LONG Fluticasone Propionate 0 actuation 03/16/18 10:00 03/16/18 14:26 Flonase NS Not Given DAILY LONG Furosemide 40 mg 03/13/18 10:00 03/13/18 09:01 Lasix IVP 40 mg Q12 LONG Administration Gabapentin 100 mg 03/15/18 22:00 03/15/18 21:35 Neurontin PO 100 mg HS LONG Administration Protocol Heparin Sodium (Porcine) 5,000 units 03/13/18 14:00 03/16/18 14:25 Heparin SC 5,000 units Q8 LONG Administration Protocol Cefepime HCl 1 gm in 100 mls @ 100 mls/hr 03/14/18 00:00 03/16/18 00:57 Maxipime 1gm IVPB 100 mls/hr Q24H LONG Administration Protocol Doxycycline Hyclate 100 mg/ 100 mls @ 100 mls/hr 03/13/18 22:00 03/16/18 10: 14 Sodium Chloride IVPB 100 mls/hr Q12 LONG Administration Protocol Dextrose 1,000 mls @ 100 mls/hr 03/16/18 01:57 Dextrose 5% In Water 1000 Ml IV .Q10H LONG Levetiracetam 500 mg 03/15/18 22:00 03/16/18 14:26 Keppra PO Not Given Q12 LONG Metoprolol Tartrate 25 mg 03/15/18 18:00 03/16/18 14:27 Lopressor PO Not Given BID [facility] Mupirocin 0 gm 03/15/18 18:00 03/16/18 14:26 Bactroban Ointment NS 03/20/18 10:01 1 applic BID LONG Administration Pantoprazole Sodium 40 mg 03/13/18 10:00 03/16/18 10:15 Protonix Inj IVP 40 mg DAILY LONG Administration Risperidone 0.5 mg 03/15/18 21:30 03/16/18 14:27 Risperdal Tab PO Not Given BID [facility] Protocol Timolol Maleate 1 drop 03/16/18 06:30 03/16/18 05:49 Timoptic 0.25% Ophth Soln OD 1 drop 0630 LONG Administration - Patient Studies Lab Studies: Microbiology Studies 03/13/18 04:00 MRSA Culture (Admit) - Final Nose Lab Studies 03/16/18 03/16/18 03/16/18 Range/Units 06:00 05:30 05:30 WBC 4.9 (4.5-11.0) 10^3/ul RBC 2.71 L (3.5-6.1) 10^6/uL Hgb 8.4 L (14.0-18.0) g/dL Hct 25.2 L (42.0-52.0) % MCV 93.0 (80.0-105.0) fl MCH 31.0 (25.0-35.0) pg MCHC 33.3 (31.0-37.0) g/dl RDW 17.7 H (11.5-14.5) % Plt Count 251 (120.0-450.0) 10^3/uL MPV 11.0 (7.0-11.0) fl Gran % 65.1 (50.0-68.0) % Lymph % (Auto) 13.4 L (22.0-35.0) % [place] % (Auto) 15.6 H (1.0-6.0) % Eos % (Auto) 5.5 H (1.5-5.0) % Baso % (Auto) 0.4 (0.0-3.0) % Gran # 3.22 (1.4-6.5) Lymph # (Auto) 0.7 L (1.2-3.4) [place] # (Auto) 0.8 H (0.1-0.6) Eos # (Auto) 0.3 (0.0-0.7) Baso # (Auto) 0.02 (0.0-2.0) K/mm3 pCO2 37 (35-45) mm/Hg pO2 99.0 (80-100) mm/Hg HCO3 25.7 (21-28) mmol/L ABG pH 7.45 (7.35-7.45) ABG Total CO2 26.8 (22-28) mmol.L ABG O2 Saturation 98.8 H (95-98) % ABG O2 Content 10.6 L (15-23) ML/dl ABG Base Excess 1.6 (-2.0-3.0) mmol/L ABG Hemoglobin 7.7 L (11.7-17.4) g/dL ABG Carboxyhemoglobin 1.9 H (0.5-1.5) % POC ABG HHb (Measured) 1.2 (0-5) % ABG Methemoglobin 0.7 (0.0-3.0) % ABG O2 Capacity 10.7 L (16-24) mL/dl Hgb O2 Saturation 96.2 (95.0-98.0) % FiO2 32.0 % Sodium 151 H (132-148) mmol/L Potassium 3.9 (3.6-5.0) mmol/L Chloride 107 (98-107) mmol/L Carbon Dioxide 26 (21-33) mmol/L Anion Gap 22 H (10-20) BUN 70 H (7-21) mg/dL Creatinine 5.0 H (0.8-1.5) mg/dl Est GFR ( Amer) 14 Est GFR (Non-Af Amer) 11 Random Glucose 143 H (70-110) mg/dL Calcium 9.5 (8.4-10.5) mg/dL Phosphorus 6.6 H (2.5-4.5) mg/dL Magnesium 1.4 L (1.7-2.2) mg/dL Total Bilirubin 0.4 (0.2-1.3) mg/dL AST 68 H (17-59) U/L ALT 124 H (7-56) U/L Alkaline Phosphatase 136 H (38-126) U/L Total Protein 8.9 H (5.8-8.3) g/dL Albumin 3.9 (3.0-4.8) g/dL Globulin 5.0 gm/dL Albumin/Globulin Ratio 0.8 L (1.1-1.8) 03/16/18 03/15/18 Range/Units 00:35 15:16 WBC (4.5-11.0) 10^3/ul RBC (3.5-6.1) 10^6/uL Hgb (14.0-18.0) g/dL Hct (42.0-52.0) % MCV (80.0-105.0) fl MCH (25.0-35.0) pg MCHC (31.0-37.0) g/dl RDW (11.5-14.5) % Plt Count (120.0-450.0) 10^3/uL MPV (7.0-11.0) fl Gran % (50.0-68.0) % Lymph % (Auto) (22.0-35.0) % [place] % (Auto) (1.0-6.0) % Eos % (Auto) (1.5-5.0) % Baso % (Auto) (0.0-3.0) % Gran # (1.4-6.5) Lymph # (Auto) (1.2-3.4) [place] # (Auto) (0.1-0.6) Eos # (Auto) (0.0-0.7) Baso # (Auto) (0.0-2.0) K/mm3 pCO2 (35-45) mm/Hg pO2 (80-100) mm/Hg HCO3 (21-28) mmol/L ABG pH (7.35-7.45) ABG Total CO2 (22-28) mmol.L ABG O2 Saturation (95-98) % ABG O2 Content (15-23) ML/dl ABG Base Excess (-2.0-3.0) mmol/L ABG Hemoglobin (11.7-17.4) g/dL ABG Carboxyhemoglobin (0.5-1.5) % POC ABG HHb (Measured) (0-5) % ABG Methemoglobin (0.0-3.0) % ABG O2 Capacity (16-24) mL/dl Hgb O2 Saturation (95.0-98.0) % FiO2 % Sodium 153 H 152 H (132-148) mmol/L Potassium 3.8 4.0 (3.6-5.0) mmol/L Chloride 107 106 (98-107) mmol/L Carbon Dioxide 27 27 (21-33) mmol/L Anion Gap 23 H 22 H (10-20) BUN 70 H 80 H (7-21) mg/dL Creatinine 5.4 H 5.6 H (0.8-1.5) mg/dl Est GFR ( Amer) 13 12 Est GFR (Non-Af Amer) 10 10 Random Glucose 152 H 159 H (70-110) mg/dL Calcium 9.4 9.2 (8.4-10.5) mg/dL Phosphorus (2.5-4.5) mg/dL Magnesium (1.7-2.2) mg/dL Total Bilirubin (0.2-1.3) mg/dL AST (17-59) U/L ALT (7-56) U/L Alkaline Phosphatase (38-126) U/L Total Protein (5.8-8.3) g/dL Albumin (3.0-4.8) g/dL Globulin gm/dL Albumin/Globulin Ratio (1.1-1.8) Laboratory Results - last 24 hr 03/15/18 03/16/18 03/16/18 15:16 00:35 05:30 WBC 4.9 RBC 2.71 L Hgb 8.4 L Hct 25.2 L MCV 93.0 MCH 31.0 MCHC 33.3 RDW 17.7 H Plt Count 251 MPV 11.0 Gran % 65.1 Lymph % (Auto) 13.4 L [place] % (Auto) 15.6 H Eos % (Auto) 5.5 H Baso % (Auto) 0.4 Gran # 3.22 Lymph # (Auto) 0.7 L [place] # (Auto) 0.8 H Eos # (Auto) 0.3 Baso # (Auto) 0.02 pCO2 pO2 HCO3 ABG pH ABG Total CO2 ABG O2 Saturation ABG O2 Content ABG Base Excess ABG Hemoglobin ABG Carboxyhemoglobin POC ABG HHb (Measured) ABG Methemoglobin ABG O2 Capacity Hgb O2 Saturation FiO2 Sodium 152 H 153 H Potassium 4.0 3.8 Chloride 106 107 Carbon Dioxide 27 27 Anion Gap 22 H 23 H BUN 80 H 70 H Creatinine 5.6 H 5.4 H Est GFR ( Amer) 12 13 Est GFR (Non-Af Amer) 10 10 Random Glucose 159 H 152 H Calcium 9.2 9.4 Phosphorus Magnesium Total Bilirubin AST ALT Alkaline Phosphatase Total Protein Albumin Globulin Albumin/Globulin Ratio 03/16/18 03/16/18 05:30 06:00 WBC RBC Hgb Hct MCV MCH MCHC RDW Plt Count MPV Gran % Lymph % (Auto) [place] % (Auto) Eos % (Auto) Baso % (Auto) Gran # Lymph # (Auto) [place] # (Auto) Eos # (Auto) Baso # (Auto) pCO2 37 pO2 99.0 HCO3 25.7 ABG pH 7.45 ABG Total CO2 26.8 ABG O2 Saturation 98.8 H ABG O2 Content 10.6 L ABG Base Excess 1.6 ABG Hemoglobin 7.7 L ABG Carboxyhemoglobin 1.9 H POC ABG HHb (Measured) 1.2 ABG Methemoglobin 0.7 ABG O2 Capacity 10.7 L Hgb O2 Saturation 96.2 FiO2 32.0 Sodium 151 H Potassium 3.9 Chloride 107 Carbon Dioxide 26 Anion Gap 22 H BUN 70 H Creatinine 5.0 H Est GFR ( Amer) 14 Est GFR (Non-Af Amer) 11 Random Glucose 143 H Calcium 9.5 Phosphorus 6.6 H Magnesium 1.4 L Total Bilirubin 0.4 AST 68 H ALT 124 H Alkaline Phosphatase 136 H Total Protein 8.9 H Albumin 3.9 Globulin 5.0 Albumin/Globulin Ratio 0.8 L Critical Care Progress Note - Nutrition Nutrition: Nutrition Category Date Time Status Liquid Diet [DIET] Diets 03/15/18 Dinner Ordered Attending/Attestation - Attestation I have personally seen and examined this patient.: Yes I have fully participated in the care of the patient.: Yes I have reviewed all pertinent clinical information: Yes Notes (Text): 03/16/18 15:12 77 yo male with resolved hypoxemic respiratory failure. on abx, conservative fluid and 02 management. PT, OOB to chair to a degree with which patient can cooperate. maintain euvolemia, euglycemia and 02sat>90 percent. DVT/GI prophyalxis
--- NOTE | 2018-03-16 13:29 | PN ---
DATE: 03/16/2018 SUBJECTIVE: I saw Raudel in the Intensive Care Unit. He is more alert. He is talking, but he is confused and gibberish from his dementia, but he was not talking a few days ago. Now, he is on Bactroban cream, dextrose, doxycycline, DuoNeb, Flonase, heparin, Keppra, Lasix, Lopressor, Maxipime, Neurontin, Norvasc, Protonix, Risperdal, and Timoptic. PHYSICAL EXAMINATION: GENERAL: He is more alert. VITAL SIGNS: He has a 97.6 temperature, 98 pulse, 120/62 blood pressure, 21 respiratory rate, 90% O2 sat. HEENT: Head is atraumatic, normocephalic. HEART: Regular rate. LUNGS: Decreased breath sounds. ABDOMEN: Soft. EXTREMITIES: No edema. LABORATORY DATA: He has a 4.9 white count, 8.4 hemoglobin, 25.2 hematocrit with 251 platelets. Lactate finally dropped to 0.9, it was about 2.2 for 3 days. Sodium 151; potassium 3.9; BUN 70; creatinine 5, coming down a little bit; GFR is 11; sugar is 143; calcium 9.5, phosphorous 6.6, magnesium 1.4. Total bilirubin is 0.4, AST is 68, ALT is 124, alkaline phosphatase 136, total protein is 8.9. He is having . He is being seen by Pulmonary, Infectious Disease, the high value associate, Renal, Hematology/Oncology. Severe dementia, [id number] renal failure, severe sepsis, right-sided pneumonia. Continue as per Intensive Care Unit. We will check his labs tomorrow. Jerzy Walsh DO MTDD
[2018-03-16] MEDS: Mupirocin 2% Ointment 15 GM TUBE NS SCH ×2 (14:26→17:28)
[2018-03-16] MEDS: Fluticasone Nasal 50 mcg/Spray NS SCH (14:26)
--- NOTE | 2018-03-16 15:05 | PN ---
DATE: 03/16/2018 SUBJECTIVE: The patient is seen lying in bed in the ICU. He is lethargic, barely arousable. He is lying flat. He does not appear to be in any kind of respiratory distress. PHYSICAL EXAMINATION VITAL SIGNS: Blood pressure 133/58, heart rate 90, respiratory rate 18-20, temperature 97.6. HEENT: Normocephalic, atraumatic, positive pallor. NECK: Supple, no JVD. LUNGS: Bilateral equal air entry, bilateral equal expansion, no rales. CARDIAC: S1 and S2, regular rate and rhythm, no murmur, no rub. ABDOMEN: Soft, nondistended, nontender, bowel sounds present. EXTREMITIES: No lower extremity edema. INTAKE AND OUTPUT: 2440/2700. LABORATORY DATA: WBC 4.9, hemoglobin 8.4, hematocrit 25, platelets 251. Sodium 151, potassium 3.9, chloride 107, CO2 of 26, BUN 70, creatinine 5, glucose 143, calcium 9.5, phosphorus 6.6, magnesium 1.4, AST 68, ALT 124, albumin 3.9. Urine eosinophils negative, urine creatinine 22, urine sodium 119. Cultures no growth so far. Chest x-ray, improvement in bilateral infiltrates. CURRENT MEDICATIONS: D5W at 100, doxycycline 100 every 12 hours, DuoNeb, Flonase, heparin, Keppra, Lasix 40 IV every 12 hours on hold, Lopressor 25 b.i.d., cefepime 1 g daily, gabapentin 100, amlodipine 2.5, Protonix 40, Risperdal 0.5 b.i.d. ASSESSMENT: 1. Acute kidney injury in the setting of sepsis, pneumonia, history of multiple myeloma. 2. Hyperkalemia, resolved. 3. IgA multiple myeloma. 4. Non-insulin dependant diabetes mellitus. 5. Hypertension. 6. Schizophrenia. 7. Hypernatremia, slowly improving. 8. Anion gap metabolic acidosis. 9. Hyperphosphatemia. 10. Hypomagnesemia. 11. Elevated LFTs. 12. Lethargy. PLAN: 1. Continue IV fluids, hypotonic fluids, D5W. 2. Continue antibiotics for presumed pneumonia. 3. Check urine immunofixation. 4. Hematology followup for treatment of multiple myeloma? 5. Advanced dementia. 6. No objection to transfer out of the ICU. Mikaela Montes MD [facility] # [id number]
--- NOTE | 2018-03-16 15:31 | CP.PCM.PN ---
Subjective - Date & Time of Evaluation Date of Evaluation: 03/16/18 Time of Evaluation: 12:30 - Subjective Subjective: No fevers, not in distress but still weak. Objective - Vital Signs/Intake and Output Vital Signs (last 24 hours): Temp Pulse Resp BP Pulse Ox 97.6 F 98 H 21 120/62 90 L 03/16/18 04:00 03/16/18 06:00 03/16/18 04:59 03/16/18 05:00 03/16/18 04:59 Intake and Output: 03/16/18 03/16/18 06:59 18:59 Intake Total 2440 Output Total 2700 Balance -260 - Medications Medications: Current Medications Albuterol/Ipratropium (Duoneb 3 Mg/0.5 Mg (3 Ml) Ud) 3 ml IH [id number] [facility] Last Admin: 03/15/18 21:20 Dose: 3 ml Amlodipine Besylate (Norvasc) 2.5 mg PO DAILY [facility] Fluticasone Propionate (Flonase) 0 actuation NS DAILY [facility] Furosemide (Lasix) 40 mg IVP Q12 [facility] Last Admin: 03/13/18 09:01 Dose: 40 mg Gabapentin (Neurontin) 100 mg PO HS LONG PRN Reason: Protocol Last Admin: 03/15/18 21:35 Dose: 100 mg Heparin Sodium (Porcine) (Heparin) 5,000 units SC Q8 LONG PRN Reason: Protocol Last Admin: 03/16/18 05:49 Dose: 5,000 units Cefepime HCl (Maxipime 1gm) 1 gm in 100 mls @ 100 mls/hr IVPB Q24H LONG PRN Reason: Protocol Last Admin: 03/16/18 00:57 Dose: 100 mls/hr Doxycycline Hyclate 100 mg/ (Sodium Chloride) 100 mls @ 100 mls/hr IVPB Q12 LONG PRN Reason: Protocol Last Admin: 03/15/18 21:36 Dose: 100 mls/hr Dextrose (Dextrose 5% In Water 1000 Ml) 1,000 mls @ 100 mls/hr IV .Q10H LONG Levetiracetam (Keppra) 500 mg PO Q12 [facility] Last Admin: 03/15/18 21:35 Dose: 500 mg Metoprolol Tartrate (Lopressor) 25 mg PO BID [facility] Last Admin: 03/15/18 17:52 Dose: 25 mg Mupirocin (Bactroban Ointment) 0 gm NS BID [facility] Stop: 03/20/18 10:01 Last Admin: 03/15/18 19:19 Dose: 1 applic Pantoprazole Sodium (Protonix Inj) 40 mg IVP DAILY [facility] Last Admin: 03/15/18 09:23 Dose: 40 mg Risperidone (Risperdal Tab) 0.5 mg PO BID [facility] PRN Reason: Protocol Last Admin: 03/15/18 21:35 Dose: 0.5 mg Timolol Maleate (Timoptic 0.25% Ophth Soln) 1 drop OD 0630 [facility] Last Admin: 03/16/18 05:49 Dose: 1 drop - Labs Labs: 03/16/18 05:30 03/16/18 05:30 PT 14.9 SECONDS (9.4-12.5) H 03/12/18 20:55 INR 1.30 (0.93-1.08) H 03/12/18 20:55 APTT 31.9 Seconds (25.1-36.5) 03/12/18 20:55 - Constitutional Appears: Cachectic, Chronically Ill - Head Exam Head Exam: NORMAL INSPECTION - Neck Exam Neck Exam: absent: Meningismus - Respiratory Exam Respiratory Exam: Decreased Breath Sounds - Cardiovascular Exam Cardiovascular Exam: +S1, +S2 - GI/Abdominal Exam GI & Abdominal Exam: Soft. absent: Tenderness Assessment and Plan - Assessment and Plan (Free Text) Plan: Assessment severe sepsis due to right sided HCAP severe dementia psychosis possible multiple myeloma CAD S/P CABG Plan continue Cefepime and Doxycycline day 4 to complete 4-7 days of therapy overall prognosis is poor will continue to monitor clinically
[2018-03-17] MEDS: Albuterol-Ipratrop 3 mg / 0.5 (3 ml) UD IH SCH ×5 (01:46→20:25)
[2018-03-17] MEDS: Cefepime 1gm in NS 100ml 1 GM/100 ML BAG IVPB SCH (01:56)
[2018-03-17 06:24] LABS: BASO # 0.01 K/mm3 (0.0-2.0); BASO % 0.2 % (0.0-3.0); EOS # 0.3 (0.0-0.7); GRAN # 3.1 (1.4-6.5); GRAN % 61.6 % (50.0-68.0); HEMOGLOBIN 7.2 g/dL (14.0-18.0); LYMPH % 19.7 % (22.0-35.0); MEAN CELL VOLUME 93.8 fl (80.0-105.0); MEAN CORPUSCULAR HEMOGLOBIN 29.8 pg (25.0-35.0); MEAN CORPUSCULAR HGB CONC 31.7 g/dl (31.0-37.0); MONO # 0.6 (0.1-0.6); MONO % 12.5 % (1.0-6.0); RBC 2.42 10^6/uL (3.5-6.1); RED CELL DISTRIBUTION WIDTH 17.2 % (11.5-14.5)
[2018-03-17 06:28] LABS: ARTERIAL BLOOD GAS HCO3 23.6 mmol/L (21-28); ARTERIAL BLOOD GAS HEMOGLOBIN 6.5 g/dL (11.7-17.4); ARTERIAL BLOOD GAS O2 CONTENT 8.5 ML/dl (15-23); ARTERIAL BLOOD GAS O2 SAT 94.8 % (95-98); ARTERIAL BLOOD GAS PCO2 31 mm/Hg (35-45); ARTERIAL BLOOD GAS PH 7.49 (7.35-7.45); ARTERIAL BLOOD GAS TCO2 24.6 mmol.L (22-28)
[2018-03-17 07:22] LABS: ALB/GLOB RATIO 0.7 (1.1-1.8); ALBUMIN 3.8 g/dL (3.0-4.8); CALCIUM 9.9 mg/dL (8.4-10.5)
--- NOTE | 2018-03-17 07:22 | PN ---
DATE: 03/17/2018 PULMONARY NOTE SUBJECTIVE: The patient appears comfortable this morning. He is not short of breath at rest. OBJECTIVE: VITAL SIGNS: Temperature is 97.8, pulse on the monitor is 102, respiratory rate 18/20, blood pressure 108/40. Oxygen saturation on room air is 95%. HEENT: Normocephalic, atraumatic. No JVD. CARDIOVASCULAR: Positive S1, S2. Positive S3 gallop. LUNGS: Less crackles at the bases. Less rhonchi. No wheezing. EXTREMITIES: No clubbing, cyanosis or edema. Calves are nontender to palpation. GI: Abdomen is soft, nontender, nondistended. Bowel sounds are positive. SKIN: No acute rash. NEUROLOGIC: Exam limited at the present time. IMPRESSION: 1. Acute congestive heart failure. 2. Acute renal insufficiency. 3. Rule out pneumonia - right lower lobe. 4. Hypoxemia - improving. 5. Chronic anemia. 6. Probable multiple myeloma. 7. Encephalopathy. 8. Coronary artery disease. PLAN: The patient appears comfortable this morning. He is not short of breath at rest. I did discuss the case with the night nurse at length. The night nurse stated that the patient had a good night. However, the night nurse did state that the patient repeatedly took off his oxygen (nasal cannula). On physical exam, there is certainly less bronchospasm noted. I will continue with the current nebulizer treatments and aspiration precautions for now. In addition, the alveolar-arterial gradient also continues to resolve. A repeat chest x-ray and arterial blood gas are ordered for this morning. I will check them both when feasible. Inputs by Renal, Cardiology and Infectious Disease are noted. The patient remains on intravenous Lasix. The patient also remains on antibiotic therapy. The clinical status of the patient is certainly improved - compared to the initial presentation. However, again, his future status/prognosis does remain very guarded. I will discuss the above with Dr. Walsh this morning. Jose Leroy MD [facility]ITAL[facility]
[2018-03-17] MEDS: Fluticasone Nasal 50 mcg/Spray NS SCH (10:36)
[2018-03-17] MEDS: Magnesium Oxide 400 mg Tab UD PO ONE ×2 (10:38→12:14)
[2018-03-17] MEDS: Mupirocin 2% Ointment 15 GM TUBE NS SCH ×3 (10:39→18:47)
[2018-03-17] MEDS: Timolol 0.25% Ophth SOLN OD SCH ×2 (10:40→11:01)
[2018-03-17 12:52] LABS: IRON 32 ug/dL (45-180)
[2018-03-17 13:01] LABS: % IRON SATURATION 14 % (20-55); TOTAL IRON BINDING CAPACITY 231 ug/dL (261-462)
--- NOTE | 2018-03-17 14:21 | PN ---
DATE: 03/17/2018 SUBJECTIVE: I saw him resting comfortably in bed, now in the second floor 263, he is out of the Intensive Care Unit. He is alert and talking to me. I am not sure what he is saying and is gibberish, a Croatian, but he is stronger, Bactroban ointment, dextrose, doxycycline, DuoNeb, Flonase, heparin, Keppra, Lasix, Lopressor, Neurontin, Norvasc, Protonix, Risperdal and Timoptic. So now he is down to one antibiotic IV, which is good. PHYSICAL EXAMINATION: VITAL SIGNS: He has 97.1 temp, 76 pulse, 124/54 blood pressure, 20 respiratory rate, 97% O2 sat on nasal cannula. HEENT: Head is atraumatic, normocephalic. HEART: Regular rate. LUNGS: Decreased breath sounds, but clear. ABDOMEN: Soft. EXTREMITIES: No edema. NEUROLOGIC: He is more alert. He is awake. He is stronger. LABORATORY DATA: He has 5 white count, hemoglobin is 7.2, hematocrit 22.7, platelets of 245, I am going to transfuse him two units of packed red blood cells today with Lasix 40 IV one time dose Sodium 154, potassium is 4. BUN is 59, creatinine 4.3, they are coming down nicely. Last blood sugar 131, calcium is 9.9, phosphorus is 5.6, magnesium 1.3, total bili is 0.7, AST is 50, ALT is 103, alkaline phosphatase is 121 and total protein 7.2, those numbers are coming down also. He is being seen by Pulmonary, Infectious Disease, Renal, Cardiology, Applications Coordinator. He has multiple issues. He is weak, but he is definitely improving and having severe sepsis due to right-sided community-acquired pneumonia, severe dementia, psychosis, multiple myeloma, doxycycline. He is on antibiotics, I am not sure if he is still supposed to be on cefepime We will continue aggressive treatment and care on Raudel Simmons. Check his labs. Jerzy Walsh DO [facility]
[2018-03-17] MEDS ORDERED: Magnesium Sulfate 2 GM in Sodium Chloride 0.9% 100 ML IV ONE (16:08)
[2018-03-17] MEDS ORDERED: Magnesium 2 gm/50 ml NS 2 GM/50 ML BAG IV ONE (16:22)
--- NOTE | 2018-03-17 16:33 | PN ---
DATE: 03/17/2018 CARDIOLOGY FOLLOWUP SUBJECTIVE: The patient is without shortness of breath, without complaints. PHYSICAL EXAMINATION: VITAL SIGNS: Blood pressure is 113/47, the heart rate is atrial fibrillation in the 70s. NECK: Negative JVD. LUNGS: Without rales. HEART: S1 and S2. EXTREMITIES: Without edema. LABORATORY DATA: Hemoglobin 7.2. Chemistries: BUN and creatinine are 59 and 4.3. IMPRESSION: 1. Chronic atrial fibrillation. 2. Severe dementia. 3. Renal insufficiency. 4. Diabetes mellitus. 5. Persistent anemia. Given these findings, I do not believe the patient can be anticoagulated given his recurrent anemia and his tendency for bleeding. We will continue his medications at this time. We will continue on his beta-kunal. We will discontinue telemetry today. Rusty Horton MD
--- NOTE | 2018-03-17 20:30 | PN ---
DATE: 03/17/2018 SUBJECTIVE: The patient is seen earlier today in room 263, bed 2. No fevers and no chills. No nausea. PHYSICAL EXAMINATION VITAL SIGNS: Temperature is 98, blood pressure is 115/50, respiratory rate 18, heart rate of 100. HEENT: Unremarkable. NECK: Supple. LUNGS: Decreased breath sounds. HEART: Normal S1 and S2. ABDOMEN: Soft, nontender. LABORATORY EXAMINATION: Reveals white count is 5, hemoglobin of 7, platelets of 245. Chemistries reveals a BUN of 59, creatinine of 4.3. Urinalysis is noted. is reviewed. Urine for Legionella antigen is negative. Review of orders reveals the patient to be on IV doxycycline. Microbiology reveals nasal MRSA screen is positive. Blood cultures are no growth. Urine cultures no growth. Chest x-ray from yesterday improvement in bilateral infiltrate. Dr. Leroy's note is reviewed. ASSESSMENT AND PLAN: A 77-year-old male with severe sepsis due to right-sided healthcare associated pneumonia with severe dementia, psychosis, possible multiple myeloma and day #5 of cefepime and doxycycline, which has been 4 to 7 days. We will change the doxycycline to p.o. and follow closely with you. Kan Mcguire MD
--- NOTE | 2018-03-17 21:32 | PN ---
DATE: 03/17/2018 SUBJECTIVE: The patient is currently seen on 2R. He is sleeping eyes are closed. He is receiving 1 out of 2 units of packed red blood cells transfusion for his lower hemoglobin. He also remains on hypotonic fluids for his hypernatremia. MEDICATIONS: Medication list reviewed. The patient is currently on mupirocin, D5W 100 mL an hour, doxycycline, DuoNeb, Flonase, subcu heparin, Keppra, Lopressor, Neurontin, Norvasc, Protonix, Risperdal, and Timoptic ophthalmic solution. PHYSICAL EXAMINATION: INTAKE AND OUTPUT: Intake is 1420, output is 1750. VITAL SIGNS: Blood pressure is 107/49, temperature 97.5, pulse of 82 with a respiratory rate of 18. HEENT: Shows him to be asleep with eyes closed. NECK: Supple. No neck vein distention. CHEST: Clear to auscultation and percussion with no rales, rhonchi, or wheezing. CARDIOVASCULAR: Shows a regular rate and rhythm with MR/AI/TR. Distal lower extremity pulses are 1 to 2+ bilaterally. ABDOMEN: Soft. Bowel sounds normal. No rebound, guarding, or masses. EXTREMITIES: Show no cyanosis, clubbing, or edema. Distal lower extremity pulses are reduced at 1 to 2+ bilaterally. LABORATORY DATA AND IMAGING STUDIES: Renal ultrasound was unremarkable. CBC: White blood cell count 5; hemoglobin low at 7.2, hence, the patient is receiving 2 units of packed red blood cells; platelet count is 245,000. Blood gas today, pH 7.49 with a pCO2 of 31 and a pO2 of 56. Chemistries: Sodium is up to 154, chloride is 109. BUN is 59 down from a high of 91, creatinine is 4.3 down from a high of 7.2. Glucose presently is 131. Calcium 9.9. Phosphorus mildly elevated at 5.6, this has improved. The patient is not receiving binder therapy. Magnesium level is low at 1.3. The patient will receive IV magnesium sulfate and may also be started on oral magnesium supplements. Liver enzymes, mild elevation of ALT. Albumin is stable at 3.8. Urine electrolytes were remarkable for showing a high urine sodium consistent with possible ATN type injury, but not renal hypoperfusion. Urine eosinophils were negative. Microbiology, all cultures are negative. ASSESSMENT: 1. Acute renal failure in the setting of multiple myeloma, dehydration, pneumonia. The patient continues to make slow improvement with treatment of the possible offending issues. No evidence for obstructive uropathy uric acid level is elevated, likely secondary to acute renal failure and multiple myeloma with perhaps cell lysis. 2. Multiple myeloma. The patient has had this diagnosis for quite some period of time. It is unclear to me still what his outpatient workup had been and how responsive he was to medical therapy. 3. Anemia, this is multifactorial secondary to multiple myeloma, secondary to acute renal failure, and secondary to iron deficiency. 4. History of diabetes mellitus. Glucose control is acceptable. 5. History of schizoaffective disorder. The patient continues to be stable on present medication. 6. History of left ventricular hypertrophy with a normal ejection fraction, mitral regurgitation/tricuspid regurgitation/aortic insufficiency. 7. History of pneumonia with bilateral infiltrates, on antibiotic therapy appropriately. PLAN: 1. Agree with hypotonic fluids in light of his hypernatremia. 2. Agree with transfusing the patient with 2 units of packed red blood cells. 3. Post transfusion, we will give the patient magnesium supplements. 4. P.r.n. start phosphorous binders. 5. Continue renal diet, p.o. intake likely is not good. 6. Continue to monitor labs on a daily basis with accurate I's and O's. Try and keep intake ahead of output and again use hypotonic fluids. Vikas Ma MD
[2018-03-18] MEDS: Albuterol-Ipratrop 3 mg / 0.5 (3 ml) UD IH SCH ×4 (02:30→20:55)
[2018-03-18] MEDS: Timolol 0.25% Ophth SOLN OD SCH (05:39)
--- NOTE | 2018-03-18 08:46 | PN ---
DATE: 03/18/2018 SUBJECTIVE: I saw him in bed. He has been sedated with some Ativan. He was very much unruly and it was difficult. He was climbing in the bed, so that we gave him some Ativan this morning as a one-time dose until calm him down. MEDICATIONS: He is on Bactroban cream, dextrose, doxycycline orally, DuoNebs, Flonase, heparin, Keppra, Lasix IV, Lopressor, Neurontin, amlodipine, Protonix, Risperdal and Timoptic. PHYSICAL EXAMINATION: VITAL SIGNS: He has a 98.1 temp, 118 pulse, 138/80 blood pressure, 18 respiratory rate, 91% O2 sat on room air. He is 96% on nasal cannula. HEENT: His head is atraumatic, normocephalic. HEART: Regular rate. LUNGS: Decreased breath sounds, but clear. ABDOMEN: Soft. EXTREMITIES: No edema. LABORATORY DATA: He does not have labs this morning yet. Yesterday, he had 7.2 hemoglobin, I transfused him 2 units. Last blood sugar was 129. ASSESSMENT AND PLAN: He is being seen by Infectious Disease, Renal, Cardiology and Pulmonary. The next day, do discharge planning where we can send this nice man. Yesterday, he had severe sepsis, congestive heart failure, anemia, bilateral pneumonia. He has a right rib tissue mass, multiple myeloma, diabetes. I will discuss with Case Management. Jerzy Walsh DO
[2018-03-18 09:31] LABS: BASO # 0.02 K/mm3 (0.0-2.0); BASO % 0.4 % (0.0-3.0); EOS # 0.2 (0.0-0.7); EOS % 3.4 % (1.5-5.0); GRAN # 3.75 (1.4-6.5); GRAN % 66.6 % (50.0-68.0); HEMOGLOBIN 8.9 g/dL (14.0-18.0); LYMPH # 0.6 (1.2-3.4); MEAN CELL VOLUME 89.7 fl (80.0-105.0); MEAN CORPUSCULAR HEMOGLOBIN 29.7 pg (25.0-35.0); MEAN CORPUSCULAR HGB CONC 33.1 g/dl (31.0-37.0); MEAN PLATELET VOLUME 10.6 fl (7.0-11.0); MONO # 1.1 (0.1-0.6); MONO % 19.6 % (1.0-6.0); RED CELL DISTRIBUTION WIDTH 18.2 % (11.5-14.5); WHITE BLOOD COUNT 5.6 10^3/ul (4.5-11.0)
[2018-03-18 09:43] LABS: ALB/GLOB RATIO 0.7 (1.1-1.8); CALCIUM 10.3 mg/dL (8.4-10.5)
[2018-03-18] MEDS: Fluticasone Nasal 50 mcg/Spray NS SCH (11:00)
[2018-03-18] MEDS: Mupirocin 2% Ointment 15 GM TUBE NS SCH ×2 (11:01→18:29)
--- NOTE | 2018-03-18 12:09 | PN ---
DATE: 03/18/2018 PULMONARY NOTE DICTATION SUBJECTIVE: The patient appears comfortable this morning. He is not short of breath at rest. PHYSICAL EXAMINATION: VITAL SIGNS: Temperature is 98.1, pulse is 104, respiratory rate 18, blood pressure 138/80. Oxygen saturation on nasal cannula is 91-96%. HEENT: Normocephalic, atraumatic. No JVD. CARDIOVASCULAR: Positive S1, S2. Positive S3 gallop. LUNGS: Minimal/less crackles at the bases. Minimal/less rhonchi. No wheezing. EXTREMITIES: No clubbing, cyanosis or edema. Calves are nontender to palpation. GASTROINTESTINAL: Abdomen is soft, nontender and nondistended. Bowel sounds are positive. SKIN: No acute rash. NEUROLOGIC: Exam limited at the present time. IMPRESSION: 1. Acute congestive heart failure. 2. Acute renal insufficiency. 3. Rule out pneumonia - right lower lobe. 4. Hypoxemia - improving. 5. Chronic anemia. 6. Probable multiple myeloma. 7. Encephalopathy. 8. Coronary artery disease. PLAN The patient appears comfortable this morning. He is not short of breath at rest. I did discuss the case with the night nurse at length. The night nurse stated that the patient had a good night. On physical exam, there is certainly less bronchospasm noted. In addition, the alveolar-arterial gradient is also much less. I will continue the current nebulizer treatments and aspiration precautions for now. The patient remains on antibiotic therapy - as per Infectious Disease. Input by Dr. Mcguire is noted. The temperatures have resolved. There is no leukocytosis. Inputs by Cardiology and Renal are also noted. Clinical status of the patient is significantly improved - compared to last week. However, again, his future status/prognosis does remain very guarded. I will discuss the above with Dr. Walsh. Jose Leroy MD [facility]
--- NOTE | 2018-03-18 15:15 | PN ---
DATE: 03/18/2018 SUBJECTIVE: The patient is seen lying in bed. He is lethargic. He is lying flat in bed, appears comfortable. PHYSICAL EXAMINATION: GENERAL: Elderly male, lying in bed. VITAL SIGNS: Blood pressure 130/89, heart rate , respiratory rate 18, temperature 98. HEENT: Normocephalic, atraumatic. NECK: Supple, no JVD. LUNGS: Bilateral equal air entry, bilateral equal expansion. CARDIAC: S1 and S2, regular rate and rhythm, no murmur, no rub. ABDOMEN: Soft, nondistended, nontender, bowel sounds present. EXTREMITIES: No lower extremity edema. INTAKE AND OUTPUT: 1420/1750. LABORATORY DATA: WBC 5.6, hemoglobin 8.9, hematocrit 27, platelets 251. Sodium 151, potassium 3.2, chloride 105, CO2 of 29, BUN 53, creatinine 3.7, glucose 181. Calcium 10.3, phosphorus 5, magnesium 2, albumin 4. Urine eosinophils negative. Cultures, no growth. CURRENT MEDICATIONS: Bactroban, D5W at 100, doxycycline, DuoNeb, Flonase, heparin, Keppra, Lasix 40 IV every 12 which is on hold, Lopressor, gabapentin, Norvasc, Protonix, Timoptic. The patient did receive one dose of Lasix 40 IV yesterday. ASSESSMENT: 1. Acute kidney injury superimposed on chronic kidney disease? 2. Sepsis, pneumonia, dehydration. 3. Multiple myeloma. 4. Hypokalemia. 5. Dementia. 6. Anemia. 7. Qve-sitrgvc-vabecwkds diabetes mellitus. 8. Left ventricular hypertrophy. PLAN: 1. Change IV fluids to D5W with 20 mEq of KCl at 80. 2. Push p.o. free water. 3. Avoid nephrotoxins. 4. Monitor fingersticks and continue insulin coverage. 5. Treatment for multiple myeloma?? 6. Hematology followup. Mikaela Montes MD
--- NOTE | 2018-03-18 15:59 | PN ---
DATE: 03/18/2018 SUBJECTIVE: The patient is without distress in bed. PHYSICAL EXAMINATION: VITAL SIGNS: Blood pressure is 138/80, the heart rate is 100, atrial fibrillation. NECK: Negative JVD. LUNGS: Without rales. HEART: S1, S2. EXTREMITIES: Without edema. LABORATORY DATA: Hemoglobin is 8.9. Chemistries, BUN and creatinine is 53 and 3.7, glucose is 181. IMPRESSION: 1. Atrial fibrillation. 2. Renal insufficiency. 3. Diabetes mellitus. 4. Dementia. 5. Persistent anemia. PLAN: Given these findings, we will increase his Lopressor for better heart rate control. Rusty Horton MD
--- NOTE | 2018-03-18 20:54 | PN ---
DATE: 03/18/2018 SUBJECTIVE: The patient is in bed, was seen earlier this morning in room 263, bed 2. PHYSICAL EXAMINATION: VITAL SIGNS: Temperature is 98, blood pressure is 130/80, respiratory rate of 18, heart rate of 116. HEENT: Unremarkable. NECK: Supple. LUNGS: Have decreased breath sounds. HEART: Normal S1, S2. ABDOMEN: Soft, nontender. LABORATORY DATA: Reveals a white count of 5.6, hemoglobin of 8, platelets of 251. Chemistries: BUN of 53, creatinine of 3.7. Urine for Legionella antigen is negative. Microbiology reveals MRSA screen from the nose is positive and the blood cultures are no growth. Urine cultures, no growth. Review of orders reveals the patient to be on doxycycline p.o. Dr. Leroy's progress note from this morning is appreciated. Dr. Jerzy Walsh's note is reviewed. ASSESSMENT AND PLAN: This is a 77-year-old male with severe sepsis with right-sided healthcare associated pneumonia with severe dementia, psychosis, possible multiple myeloma, and day #6 of doxycycline, would complete 7 days, today is day #6 of 7 days. Kan Mcguire MD
[2018-03-19] MEDS: Albuterol-Ipratrop 3 mg / 0.5 (3 ml) UD IH SCH ×3 (03:00→14:00)
[2018-03-19 07:30] LABS: BASO # 0.02 K/mm3 (0.0-2.0); BASO % 0.4 % (0.0-3.0); EOS # 0.2 (0.0-0.7); EOS % 3.9 % (1.5-5.0); GRAN # 3.71 (1.4-6.5); HEMOGLOBIN 9.2 g/dL (14.0-18.0); LYMPH # 0.7 (1.2-3.4); LYMPH % 12.8 % (22.0-35.0); MEAN CELL VOLUME 90.3 fl (80.0-105.0); MEAN CORPUSCULAR HEMOGLOBIN 29.9 pg (25.0-35.0); MEAN CORPUSCULAR HGB CONC 33.1 g/dl (31.0-37.0); MEAN PLATELET VOLUME 9.9 fl (7.0-11.0); MONO % 17.9 % (1.0-6.0); RBC 3.08 10^6/uL (3.5-6.1); RED CELL DISTRIBUTION WIDTH 17.7 % (11.5-14.5); WHITE BLOOD COUNT 5.7 10^3/ul (4.5-11.0)
--- NOTE | 2018-03-19 07:37 | PN ---
DATE: 03/19/2018 PULMONARY NOTE DICTATION SUBJECTIVE: The patient appears comfortable this morning. He is not short of breath at rest. PHYSICAL EXAMINATION VITAL SIGNS: (Last noted in the computer): Temperature is 98.7, pulse 79, respirations 16, blood pressure 163/79. Oxygen saturation on room air is 95%. HEENT: Normocephalic, atraumatic. No JVD. CARDIOVASCULAR: Positive S1, S2. Positive S3 gallop. LUNGS: Minimal crackles at the bases. Minimal rhonchi. No wheezing. EXTREMITIES: No clubbing, cyanosis or edema. Calves are nontender to palpation. GASTROINTESTINAL: Abdomen is soft, nontender, nondistended. Bowel sounds are positive. SKIN: No acute rash. NEUROLOGIC: Exam limited at the present time. IMPRESSION: 1. Acute congestive heart failure. 2. Acute renal insufficiency. 3. Rule out pneumonia - right lower lobe. 4. Chronic anemia. 5. Probable multiple myeloma. 6. Encephalopathy. 7. Coronary artery disease. PLAN: The patient appears comfortable this morning. He is not short of breath at rest. On physical exam, his bronchospasm continues to resolve. In addition, the alveolar-arterial gradient also continues to resolve. Oxygen saturation on room air is now 95%. I will continue the current nebulizer treatments and aspiration precautions for now. The patient also remains on antibiotic therapy - as per Infectious Disease. There are no temperatures noted. There is no leukocytosis. Inputs by Cardiology and Renal are also noted. The clinical status of the patient is significantly improved overall. However, again, his future status/prognosis does remain very guarded. I will discuss the above with Dr. Walsh. Jose Leroy MD [facility]
[2018-03-19 07:46] LABS: ALB/GLOB RATIO 0.7 (1.1-1.8)
[2018-03-19 07:48] LABS: ALBUMIN 4.1 g/dL (3.0-4.8); CALCIUM 10.7 mg/dL (8.4-10.5)
[2018-03-19 08:09] VITALS: BP 110/70; PULSE 96; RESP 18; TEMP 98.4; O2SAT 98
[2018-03-19] MEDS: Mupirocin 2% Ointment 15 GM TUBE NS SCH (11:00)
[2018-03-19] MEDS: Timolol 0.25% Ophth SOLN OD SCH (11:04)
[2018-03-19] MEDS: Fluticasone Nasal 50 mcg/Spray NS SCH (13:05)
--- NOTE | 2018-03-19 14:34 | DS ---
HISTORY OF PRESENT ILLNESS: I do believe he is getting better, little bit stronger overall. He is on Ativan, Bactroban ointment, Doryx, DuoNebs, Flonase, heparin, Keppra, Lasix which was on hold, Lopressor, Neurontin, Norvasc, potassium, Protonix, Risperdal and Timoptic. PHYSICAL EXAMINATION: GENERAL: He is alert. He is talking. He is confused. VITAL SIGNS: Temperature 98.4, pulse 96, blood pressure 110/70, respiratory rate 18, oxygen sat 98% on room air. HEENT: Head is atraumatic, normocephalic. HEART: Regular rate with decreased breath sounds, but clear. ABDOMEN: Soft. EXTREMITIES: No edema. LABORATORY DATA: He has 5.7 white count, 9.2 hemoglobin, 27.8 hematocrit with 250 platelets. Sodium 152, potassium 3.8, BUN 48, creatinine 3.4, GFR is 18, sugar is 163, calcium is 10.7, total bili is 0.7, AST is 38, ALT is 76, alk phos 134, total protein is 9.7. My plan is to discharge him to [facility] today. I think he needs a physical therapy, finish the antibiotics. He had severe sepsis, right-sided pneumonia, severe dementia, psychosis, possible multiple myeloma. I am hoping we could discharge him today after antibiotics to [facility] for physical therapy. Jerzy Walsh DO
--- NOTE | 2018-03-20 00:08 | PN ---
DATE: 03/19/2018 SUBJECTIVE: The patient is seen earlier this morning in room 577, bed 1. No fevers and no chills. No chest pain. The patient appears much older than his stated age. PHYSICAL EXAMINATION: VITAL SIGNS: Temperature is 98, blood pressure is 110/70, respiratory rate of 16. HEENT: Examination of HEENT is unremarkable. NECK: Supple. LUNGS: Have decreased breath sounds. HEART: Normal S1 and S2. ABDOMEN: Soft. LABORATORY DATA: Laboratory examination reveals a white count of 5.6, BUN of 48, creatinine 3.4. Blood cultures are no growth. Urine cultures are no growth. Dr. Leroy's note is reviewed. ASSESSMENT AND PLAN: This is a 77-year-old male with severe sepsis, right-sided healthcare associated pneumonia, severe dementia and psychosis, possible multiple myeloma. Day #7 of antibiotics, doxycycline, today is the last day of the antibiotics. Kan Mcguire MD
--- NOTE | 2018-03-20 03:09 | PN ---
DATE: 03/19/2018 SUBJECTIVE: Patient is seen lying in bed. He appears to be comfortable. He is not in any kind of distress. He is lethargic. PHYSICAL EXAMINATION: GENERAL: An elderly male lying in bed. VITAL SIGNS: Blood pressure 110/70, heart rate 96, respiratory rate 18, temperature 98.4. HEENT: Normocephalic, atraumatic, positive pallor. NECK: Supple, no JVD. LUNGS: Bilateral equal air entry, bilateral equal expansion. CARDIAC: S1, S2, regular rate and rhythm, no murmur, no rub. ABDOMEN: Soft, nondistended, nontender, bowel sounds present. EXTREMITIES: No lower extremity edema. INTAKE AND OUTPUT: Not charted. LABORATORY DATA: WBC 5.7, hemoglobin 9.2, hematocrit 28, platelets 150. Sodium 152, potassium 3.8, chloride 108, CO2 of 28, BUN 48, creatinine 3.4, glucose 163, calcium 10.7. Albumin 4.1, phosphorus 4.6, magnesium 1.9, globulin 5.6. CURRENT MEDICATIONS: Ativan, Bactroban, doxycycline, DuoNeb, Flonase, heparin, Keppra, Lasix 40 IV every 12, Lopressor, Neurontin, amlodipine, D5W with potassium, Protonix, Risperdal. ASSESSMENT: 1. Acute kidney injury, resolving, suspect prerenal azotemia plus acute tubular necrosis secondary to sepsis. 2. IgA multiple myeloma. 3. Advanced dementia. 4. Hypokalemia, resolved. 5. Anemia. 6. Noninsulin-dependent diabetes mellitus. PLAN: 1. Renal function is improving nicely, continue IV fluids. 2. Push p.o. free water. 3. Continue to hold Lasix. 4. Continue insulin coverage. 5. Avoid nephrotoxins. Mikaela Montes MD
--- NOTE | 2018-03-20 08:17 | CON ---
DATE: 03/19/2018 HISTORY OF PRESENT ILLNESS: The patient is a 77-year-old Gonz[place] male with a psychiatric history of dementia with paranoia and behavioral disturbance as well as psychosis as well as delirium with associated psychiatric symptoms of paranoia, agitation, and combative behavior. The patient had one prior psychiatric admission this unit in 04/2016 and he was treated by Dr. Salazar for psychosis. At that time, he was discharged on medications including BuSpar 15 mg b.i.d., Neurontin 100 t.i.d., and Risperdal 0.25 b.i.d. The patient also has been seen by Dr. Villarreal during his medical admission for delirium from 12/23/2017 to 12/25/2017. The patient was treated with Risperdal 0.5 t.i.d. and eventually discharged back to the group home without need for psychiatric hospitalization as the etiology of his symptoms on the medical floor was secondary to delirium. The patient presented as paranoid and delusional at the time; however, these symptoms resolved by the time of his transfer back to the group home. The patient was recently admitted to the medical floor on 03/12/2018, approximately a week ago due to lethargy and decreased oxygen saturation. He was medically evaluated and was found to have multiple medical issues. Please refer to medical note for further details. Psychiatry was again consulted due to the patient's altered mental status. I reviewed recent notes and the patient's altered mental status is very much likely due to delirium again. I am familiar with this patient and I have interviewed with him in the past and also familiar with his history. I attempted to interview the patient with aide of speak and translate for Azeri translation; however, the patient refused to engage in an interview. The patient appeared to be lethargic; however, this provider feels that part of his refusal was volitional. I also attempted, with the aide of Ani Melendez RN, regarding Azeri translation; however, the patient refused to engage even with the most basic request in Azeri regardless of utilizing a block saw operator or a speaker translate alexandru. I was contacted by DAVID and apparently, the patient was a lot more alert later in the morning, which appears to confer my suspicion of patient's refusal to interact was partly volitional, although the patient did receive a dose of Ativan last night, 0.25 mg. Nursing notes indicate that the patient has been confused, at times restless, tried to climb up the bed. The patient has also refused medications at times. The patient also attempted to strike staff on 03/17/2018. I do not see any indication that the patient has been localizing paranoid delusions about staff stealing items from him as per his prior medical admission. However, I cannot rule this out. At this time, he remained unpredictable with very poor insight and judgement and requires continued monitoring due to his obvious symptoms of delirium at this time. Vitals signs were reviewed. At present, . Labs were also reviewed by the provider. RELEVANT PSYCHIATRIC MEDICATIONS: Include Neurontin 100 p.o. at bedtime; Ativan 0.25 mg IV every 6 hours p.r.n., last dose was last night; and Risperdal 0.5 mg p.o. b.i.d. scheduled. SOCIAL HISTORY: Please note that this information was obtained from prior psychiatric reports, specifically Dr. Salazar's initial psychiatric assessment in 04/2016. The patient grew up in [place] and has been in the [facility] for 20 plus years. Has only a grade school education and has worked as a company truck driver. The patient is for many years. He has 2 adult sons and 2 adult daughters. The patient also denied a familial psychiatric or substance abuse history. It is worth noting that his history cannot be taken at face value as the patient has been poorly reliable due to dementia and psychosis associated with dementia as well as delirium. PSYCHIATRIC HISTORY: As noted, the patient was hospitalized in 04/[address] Salazar from 05/08/2016 to 05/17/2016, and treated and was discharged on Risperdal 0.25 mg p.o. b.i.d. and Neurontin 100 t.i.d. as well as BuSpar 15 mg b.i.d. The patient was also seen by Dr. Villarreal during the patient's medical admission from 12/23/2017 to 12/25/2017 and treated with Risperdal 0.5 t.i.d. At the time, he was demonstrating psychosis, paranoia, and delusions associated with delirium. IMPRESSION: Delirium on top of dementia with behavioral symptoms. RECOMMENDATIONS: At this time, the patient has been showing some improvement in his alertness . Risperdal will be increased to 0.5 t.i.d. This is to treat the patient's aggression associated with delirium at this time. There does not appear to be any primary psychiatric-related issues at this time; however, Psychiatry will continue to follow to monitor his behavior and symptoms with continued medical care, optimizing the patient's medical health for purpose of resolution of delirium. Psychiatry will follow up every other day. Specifically, the provider will follow up on 03/21/2018. Harry Llanos MD
== END 2018-03-19 14:44 | DRG 871 ==
LOC: ED 20:41 → ERH 23:46 → CCU 03-13 03:37 → 2RNO 03-16 14:47 → 5RSO 03-18 21:17
PROVIDERS: ADMIT Family Medicine; ATTEND Family Medicine
PROC: 3E0F7GC Introduction of Other Therapeutic Substance into Respiratory Tract, Via Natural or Artificial Opening (ICD-10-PCS; principal; 2018-03-13)
PROC: 30233N1 Transfusion of Nonautologous Red Blood Cells into Peripheral Vein, Percutaneous Approach (ICD-10-PCS; 2018-03-17)
DX: A41.9 Sepsis, unspecified organism (principal); J18.9 Pneumonia, unspecified organism; J96.91 Respiratory failure, unspecified with hypoxia; I50.31 Acute diastolic (congestive) heart failure; C90.00 Multiple myeloma not having achieved remission; N17.9 Acute kidney failure, unspecified; E87.0 Hyperosmolality and hypernatremia; F02.81 Dementia in other diseases classified elsewhere, unspecified severity, with behavioral disturbance; E87.2 Acidosis; I13.0 Hypertensive heart and chronic kidney disease with heart failure and stage 1 through stage 4 chronic kidney disease, or unspecified chronic kidney disease; C79.51 Secondary malignant neoplasm of bone; R65.20 Severe sepsis without septic shock; I25.10 Atherosclerotic heart disease of native coronary artery without angina pectoris; G30.9 Alzheimer's disease, unspecified; E87.5 Hyperkalemia; I48.2 Chronic atrial fibrillation; F25.9 Schizoaffective disorder, unspecified; E86.0 Dehydration; E11.22 Type 2 diabetes mellitus with diabetic chronic kidney disease; N18.9 Chronic kidney disease, unspecified; Y95 Nosocomial condition; E83.42 Hypomagnesemia; E83.39 Other disorders of phosphorus metabolism; D50.9 Iron deficiency anemia, unspecified; E87.6 Hypokalemia; I08.3 Combined rheumatic disorders of mitral, aortic and tricuspid valves; Z86.73 Personal history of transient ischemic attack (TIA), and cerebral infarction without residual deficits; Z79.4 Long term (current) use of insulin; Z95.1 Presence of aortocoronary bypass graft; Z95.5 Presence of coronary angioplasty implant and graft

== ENCOUNTER 2018-04-09 18:06 | Inpatient (IN) | payer MEDICARE, MEDICAID ==
[2018-04-09 18:06] VITALS: BMI 24.8
[2018-04-09 19:59] LABS: BASO # 0.01 K/mm3 (0.0-2.0); BASO % 0.2 % (0.0-3.0); EOS # 0.1 (0.0-0.7); EOS % 2.5 % (1.5-5.0); GRAN # 4.45 (1.4-6.5); GRAN % 80.5 % (50.0-68.0); HEMOGLOBIN 9.2 g/dL (14.0-18.0); LYMPH # 0.5 (1.2-3.4); LYMPH % 9.2 % (22.0-35.0); MEAN CELL VOLUME 88.9 fl (80.0-105.0); MEAN CORPUSCULAR HEMOGLOBIN 29.3 pg (25.0-35.0); MEAN PLATELET VOLUME 11.6 fl (7.0-11.0); MONO # 0.4 (0.1-0.6); MONO % 7.6 % (1.0-6.0); RBC 3.14 10^6/uL (3.5-6.1); RED CELL DISTRIBUTION WIDTH 15.6 % (11.5-14.5); WHITE BLOOD COUNT 5.5 10^3/ul (4.5-11.0)
[2018-04-09] MEDS: Sodium Chloride 0.45% 1,000 ML IV SCH (20:01)
[2018-04-09 20:02] LABS: ALBUMIN 4.1 g/dL (3.0-4.8); CALCIUM 9.7 mg/dL (8.4-10.5)
[2018-04-09 20:03] LABS: ALB/GLOB RATIO 0.7 (1.1-1.8); TROPONIN I 0.06 ng/mL
--- NOTE | 2018-04-09 20:13 | ED PDOC ---
Arrival/HPI - General Chief Complaint: Abnormal Labs Time Seen by Provider: 04/09/18 18:26 Historian: Long-Term - History of Present Illness Narrative History of Present Illness (Text): 04/09/18 20:11 77yo male with pmhx of hypertension, multiple myeloma, Dementia, CHF, seizure, schizoaffective disorder referred to ED from [place] for elevated Cr. Pt is a poor historian, not speaking clearly. Past Medical History - Provider Review Nursing Documentation Reviewed: Yes - Past History Past History: No Previous - Infectious Disease Hx of Infectious Diseases: None - Reproductive Currently Lactating: No - Cardiac Hx Cardiac Disorders: Yes Hx Congestive Heart Failure: Yes - Pulmonary Hx Pneumonia: Yes Hx Tuberculosis: No - Neurological Hx Alzheimer's Disease: Yes - HEENT Hx HEENT Disorder: No - Renal Hx Renal Disorder: No - Endocrine/Metabolic Hx Diabetes Mellitus Type 2: Yes - Hematological/Oncological Hx Anemia: Yes Hx Cancer: Yes Other/Comment: multiple myeloma? - Integumentary Hx Dermatological Disorder: No - Musculoskeletal/Rheumatological Hx Arthritis: Yes - Gastrointestinal Hx Gastrointestinal Disorders: Yes - Genitourinary/Gynecological Hx Sexually Transmitted Diseases: No - Psychiatric Hx Psychosis: Yes Hx Substance Use: No (Question) - Surgical History Hx Coronary Stent: Yes Other/Comment: cabg - Anesthesia Hx Anesthesia: Yes Hx Anesthesia Reactions: No Hx Malignant Hyperthermia: No - Suicidal Assessment Feels Threatened In Home Enviroment: No Family/Social History - Physician Review Nursing Documentation Reviewed: Yes Family/Social History: Unknown Family HX Smoking Status: Never Smoked Hx Alcohol Use: Yes Hx Substance Use: No (Question) Hx Substance Use Treatment: No Allergies/Home Meds Allergies/Adverse Reactions: Allergies ciprofloxacin Adverse Reaction (Verified 12/23/17 11:33) RASH Home Medications: Home Meds Medication Instructions Recorded Confirmed Gabapentin [Neurontin] 100 mg PO HS 12/23/17 04/09/18 risperiDONE [RisperDAL Tab] 0.5 mg PO BID 12/23/17 04/09/18 Fluticasone Nasal [Flonase] 1 puff NS DAILY 03/15/18 04/09/18 Timolol 0.25% Ophth [Timoptic 1 drop OU HS 03/15/18 04/09/18 0.25% Ophth Soln] levETIRAcetam [Keppra] 500 mg PO Q12 03/15/18 04/09/18 Albuterol/Ipratropium [Duoneb 3 3 ml IH Q6 04/09/18 04/09/18 MG/3 Ml-0.5 MG/3 Ml 3 Ml] Furosemide [Lasix] 40 mg PO BID 04/09/18 04/09/18 Heparin [Heparin] 5,000 unit SC Q8 04/09/18 04/09/18 Metoprolol Succinate XL [Toprol XL] 50 mg PO BID 04/09/18 04/09/18 Nut.tx.gluc.intoler,Lac-Fr,Soy 237 ml PO TID 04/09/18 04/09/18 [Glucerna 1.2 Waqar] amLODIPine [Norvasc] 2.5 mg PO DAILY 04/09/18 04/09/18 Review of Systems - Review of Systems Systems not reviewed;Unavailable: Other (Poor historian.) Physical Exam Vital Signs Reviewed: Yes Vital Signs Temp Pulse Resp BP Pulse Ox 04/09/18 23:11 80 18 129/52 L 99 04/09/18 18:35 99.0 F 56 L 15 151/100 H 95 Temperature: Afebrile Blood Pressure: Hypertensive Pulse: Regular Respiratory Rate: Normal Appearance: Positive for: Well-Appearing, Non-Toxic, Comfortable Pain Distress: None Mental Status: Positive for: other (Poor historian h/o dementia) - Systems Exam Head: Present: Atraumatic, Normocephalic Pupils: Present: PERRL Extroacular Muscles: Present: EOMI Conjunctiva: Present: Normal Mouth: Present: Moist Mucous Membranes Neck: Present: Normal Range of Motion Respiratory/Chest: Present: Clear to Auscultation, Good Air Exchange. No: Respiratory Distress, Accessory Muscle Use Cardiovascular: Present: Regular Rate and Rhythm, Normal S1, S2. No: Murmurs Abdomen: No: Tenderness, Distention, Peritoneal Signs Back: Present: Normal Inspection Upper Extremity: Present: Normal Inspection. No: Cyanosis, Edema Lower Extremity: Present: Normal Inspection. No: Edema Neurological: Present: Motor Func Grossly Intact, Normal Sensory Function Skin: Present: Warm, Dry, Normal Color. No: Rashes Psychiatric: No: Alert, Oriented x 3, Normal Insight, Normal Concentration Medical Decision Making ED Course and Treatment: 04/10/18 02:07 PT presented for stated history. He appear demented in ED, not AAO x3. He is however in no distress. CXR No pulmonary edema. NAD. EKG Atrial fluter with vaiable AV block; RBBB @87bpm. NSTEMI His lab was reviewed with Cr of 12.4 and BUN of 266. Pt was seen in ED by Dr. Walsh and pt was admitted to his service. Lab result was DW Dr. Hawk, The electroencephalograph technologist covering for Dr. Menard and he stated that emergent dialysis is not needed at this time. He recommended Renal US to r/o any obstruction. States he will see pt tomorrow and if dialysis is needed he will be transferred to [facility]. - Lab Interpretations Lab Results: 04/09/18 19:25 04/09/18 19:25 Lab Results 04/09/18 20:35: PT 13.8 H, INR 1.21 H, APTT 37.0 H 04/09/18 19:25: Sodium 146, Potassium 5.4 H, Chloride 99, Carbon Dioxide 22, Anion Gap 30 H, BUN 166 H*, Creatinine 12.3 H*, Est GFR ( Amer) 5, Est GFR (Non-Af Amer) 4, Random Glucose 148 H, Calcium 9.7, Total Bilirubin 0.9, AST 24, ALT 39, Alkaline Phosphatase 151 H, Lactate Dehydrogenase 510, Total Creatine Kinase 23 L, Troponin I 0.06, Total Protein 10.0 H, Albumin 4.1, Globulin 5.9, Albumin/Globulin Ratio 0.7 L 04/09/18 19:25: WBC 5.5, RBC 3.14 L, Hgb 9.2 L, Hct 27.9 L, MCV 88.9, MCH 29.3, MCHC 33.0, RDW 15.6 H, Plt Count 273, MPV 11.6 H, Gran % 80.5 H, Lymph % (Auto) 9.2 L, [place] % (Auto) 7.6 H, Eos % (Auto) 2.5, Baso % (Auto) 0.2, Gran # 4.45, Lymph # (Auto) 0.5 L, [place] # (Auto) 0.4, Eos # (Auto) 0.1, Baso # (Auto) 0.01 - RAD Interpretation Radiology Orders: 04/09/18 20:49 CHEST PORTABLE [RAD] Stat - Medication Orders Current Medication Orders: Albuterol/Ipratropium (Duoneb 3 Mg/0.5 Mg (3 Ml) Ud) 3 ml IH Q6 [facility] Last Admin: 04/10/18 01:29 Dose: Not Given Non-Admin Reason: Patient Refused Amlodipine Besylate (Norvasc) 2.5 mg PO DAILY [facility] Fluticasone Propionate (Flonase) 1 actuation NS DAILY [facility] Sodium Chloride (Sodium Chloride 0.45%) 1,000 mls @ 40 mls/hr IV .Q24H [facility] Last Admin: 04/09/18 20:01 Dose: 40 mls/hr eMAR Start Stop Document 04/09/18 20:01 CNR (Rec: 04/09/18 20:01 CNR [id number]) Intravenous Solution Start Date 04/09/18 Start Time 20:01 Levetiracetam 500 mg/ Sodium (Chloride) 105 mls @ 420 mls/hr IV Q12 [facility] Last Admin: 04/09/18 23:30 Dose: 420 mls/hr eMAR Start Stop Document 04/09/18 23:30 CNR (Rec: 04/09/18 23:30 CNR [id number]) Intravenous Solution Start Date 04/09/18 Start Time 23:30 End Date 04/09/18 End time 23:45 Total Infusion Time 15 Metoprolol Succinate (Toprol Xl) 50 mg PO BID [facility] Non-Formulary Medication (Nut.Tx.Gluc.Intoler,Lac-Fr,Soy [Glucerna 1.2 Waqar]) 237 ml PO TID [facility] Risperidone (Risperdal Tab) 0.5 mg PO BID [facility] PRN Reason: Protocol Discontinued Medications Levetiracetam (Keppra) 500 mg PO Q12 [facility] Last Admin: 04/09/18 23:09 Dose: Not Given Non-Admin Reason: Patient Refused Disposition/Present on Arrival - Present on Arrival Any Indicators Present on Arrival: No History of DVT/PE: No History of Uncontrolled Diabetes: No Urinary Catheter: Yes History of Decub. Ulcer: No History Surgical Site Infection Following: None - Disposition Have Diagnosis and Disposition been Completed?: Yes Diagnosis: Renal failure, Hyperkalemia Disposition: HOSPITALIZED
[2018-04-09 20:53] LABS: INR 1.21 (0.93-1.08); PROTHROMBIN TIME 13.8 SECONDS (9.4-12.5)
[2018-04-09] MEDS ORDERED: levETIRAcetam 500 MG in Sodium Chloride 0.9% 100 ML IV SCH (23:15)
[2018-04-10] MEDS: Albuterol-Ipratrop 3 mg / 0.5 (3 ml) UD IH SCH ×4 (01:29→19:36)
--- NOTE | 2018-04-10 04:12 | HP ---
HISTORY OF PRESENT ILLNESS: I saw him in the emergency room. I was called to admit him to the hospital. He had seen Dr. Miranda, the oncologist today and they did a blood test today and they found his BUN and creatinine to be elevated, so sent to the emergency room. At this time, there are no ER numbers, notes or labs yet, but they felt he need to be admitted, so also have the question of him having multiple myeloma and I believe is a bone marrow in the future. PAST MEDICAL HISTORY: He has a past medical history, being a 77-year-old man with possible multiple myeloma and acute kidney injury with history of AFib, CABG, CAD, coronary stent, Alzheimer's, CVA, dementia, arthritis, diabetes, schizoaffective disorder, multiple myeloma with bone mets and now lethargic. He is talking now, doing better. FAMILY HISTORY: Unknown family history. SOCIAL HISTORY: Never smoked. No alcohol. Not sure about substance abuse. ALLERGIES: CIPRO. MEDICATIONS: He is on insulin, aspirin, Vasotec, laxatives, Colace, Flonase, Neurontin, magnesium, Glucophage, multivitamins, enemas, Percocet and Risperdal from time to time. REVIEW OF SYSTEMS: It is very difficult to get any kind of a verbal conversation with him due to his dementia. I cannot do a review of systems on him. PHYSICAL EXAMINATION: VITAL SIGNS: He has 99 temperature, 56 pulse, 161/100 blood pressure, we will give him some blood pressure pills, 15 respiratory rate, 95% O2 saturation on room air. HEENT: His head is atraumatic, normocephalic. Throat is dry. NECK: Supple. No JVD. HEART: Regular rate. Normal S1, S2. LUNGS: Decreased breath sounds, but clear. No apparent wheezes, rhonchi or rales. ABDOMEN: Soft, nontender. Positive bowel sounds. No guarding, no rebound, no CVA tenderness. EXTREMITIES: No edema, is mildly contracted, he is . NEUROLOGIC: He is talking at this time, say hello and tries to talk, but he is more lethargic. SKIN: For the most part that I could tell is dry and poor turgor. LABORATORY DATA: There were no labs. All his labs are pending. He will have a Renal consult and Oncology consult, he might need a bone marrow. He is here for acute kidney injury, sent in by the oncologist, I called in Renal and hopefully he will improve quickly. Jerzy Walsh DO CHYNA
[2018-04-10 05:36] LABS: URINE BILIRUBIN NEGATIVE (NEGATIVE); URINE BLOOD TRACE-LYSED (NEGATIVE); URINE GLUCOSE (UA) NEGATIVE (NEGATIVE); URINE LEUKOCYTE ESTERASE MODERATE Leu/uL (NEGATIVE); URINE PROTEIN 30 mg/dL (<30 mg/dL); URINE UROBILINOGEN 0.2 E.U./dL (<1 E.U./dL)
[2018-04-10 05:47] LABS: URINE APPEARANCE SL CLOUDY (CLEAR); URINE COLOR YELLOW (YELLOW)
[2018-04-10 05:57] LABS: URINE BACTERIA OCC (NEG); URINE EPITHELIAL CELLS 0 - 2 /hpf (0-5); URINE RBC 0 - 2 /hpf (0-2)
[2018-04-10 07:02] LABS: HEMOGLOBIN 8.2 g/dL (14.0-18.0); MEAN CELL VOLUME 88.9 fl (80.0-105.0); MEAN CORPUSCULAR HEMOGLOBIN 29.3 pg (25.0-35.0); MEAN CORPUSCULAR HGB CONC 32.9 g/dl (31.0-37.0); MEAN PLATELET VOLUME 10.9 fl (7.0-11.0); RBC 2.8 10^6/uL (3.5-6.1); RED CELL DISTRIBUTION WIDTH 15.5 % (11.5-14.5); WHITE BLOOD COUNT 6.9 10^3/ul (4.5-11.0)
[2018-04-10 07:39] LABS: ALB/GLOB RATIO 0.7 (1.1-1.8); ALBUMIN 3.8 g/dL (3.0-4.8); CALCIUM 9.7 mg/dL (8.4-10.5)
--- NOTE | 2018-04-10 08:57 | RAD ---
Date of service: 04/09/2018 HISTORY: admission COMPARISON: 03/16/2018 FINDINGS: LUNGS: There is a pleural base mass in the right upper lobe. This is unchanged. There is a prominent skin fold over the left upper chest. PLEURA: No significant pleural effusion identified, no pneumothorax apparent. CARDIOVASCULAR: Mild cardiomegaly OSSEOUS STRUCTURES: No significant abnormalities. VISUALIZED UPPER ABDOMEN: Normal. OTHER FINDINGS: None. IMPRESSION: Pleural-based mass in the right upper lobe unchanged
[2018-04-10] MEDS ORDERED: NUT TX GLUC INTOLER LAC FR SOY PO SCH (10:00)
--- NOTE | 2018-04-10 10:06 | CARD ---
APPROVED REPORT Date of service: 04/09/2018 EKG Measurement Heart [id number] <Conclusion> Atrial flutter with variable AV block Right bundle branch block Abnormal ECG
[2018-04-10] MEDS: cefTRIAXone 1 gm 1 GM/100 ML BAG IVPB SCH (10:08)
[2018-04-10] MEDS: levETIRAcetam 500mg IVPB 500 MG/100 ML BAG IV SCH ×2 (10:08→23:40)
[2018-04-10] MEDS: Metoprolol Succinate 50 mg XL Tab PO SCH ×2 (10:12→17:24)
--- NOTE | 2018-04-10 10:22 | US ---
Date of service: 04/10/2018 PROCEDURE: Ultrasound of the Kidneys HISTORY: r/o obsrtuction COMPARISON: None available. TECHNIQUE: Sonogram of the kidneys. FINDINGS: RIGHT KIDNEY: Measures: cm. Normal in size, contour and echogenicity. No solid mass lesion or hydronephrosis visualized. LEFT KIDNEY: Measures: cm. Normal in size, contour and echogenicity. No solid mass lesion or hydronephrosis visualized. OTHER FINDINGS: Multiple tiny bilateral echogenicities suspicious for calculi.. IMPRESSION: Possible multiple bilateral tiny renal stones; correlate with CAT scan..
[2018-04-10] MEDS: Fluticasone Nasal 50 mcg/Spray NS SCH (10:31)
--- NOTE | 2018-04-10 10:56 | CP.PCM.CON ---
History of Present Illness - History of Present Illness History of Present Illness: Jerzy Menard D.O. PGY-1, Internal Medicine Resident, Heme Onc Consult Note for Dr Miranda. 77yo male with pmhx of hypertension, multiple myeloma, Dementia, CHF, seizure, schizoaffective disorder. Pt currently lives at [facility]. Pt was present in Dr Miranda office yesterday and on review of his blood work at that time, he was found to have a CR of 12.6. He was with his legal guardian, Dr Miranda recommended that he go to the emergency room. Important to note, pt is a poor historian. Pt is Slovak speaking only. At the time of my examination his legal guardian was not present, his nurse Jayda assisted with the examination and translation. Pt reports diffuse pain "everywhere". 12 point review of systems could not be obtained secondary to pt being demented. Otherwise nurse reports that urine output overnight was adequate. PMH/PSH: dementia, schizoaffective disorder, HTN, CHF, Seizure, CAD with stent placement, DMII Allergies: cipro Social: lives a [facility] home, former smoking unable to quantify, denies alcohol, illicit drug use PMD: per chart review Dr Walsh Review of Systems - Review of Systems All systems: reviewed and no additional remarkable complaints except (as per HPI ) Past Patient History - Infectious Disease Hx of Infectious Diseases: None - Past Medical History & Family History Past Medical History?: Yes - Past Social History Smoking Status: Former Smoker - CARDIAC Hx Cardiac Disorders: Yes Hx Congestive Heart Failure: Yes - PULMONARY Hx Pneumonia: Yes Hx Tuberculosis: No - NEUROLOGICAL Hx Alzheimer's Disease: Yes - HEENT Hx HEENT Problems: No - RENAL Hx Chronic Kidney Disease: No - ENDOCRINE/METABOLIC Hx Diabetes Mellitus Type 2: Yes - HEMATOLOGICAL/ONCOLOGICAL Hx Anemia: Yes Hx Cancer: Yes Other/Comment: multiple myeloma? - INTEGUMENTARY Hx Dermatological Problems: No - MUSCULOSKELETAL/RHEUMATOLOGICAL Hx Falls: Yes - GASTROINTESTINAL Hx Gastrointestinal Disorders: Yes - GENITOURINARY/GYNECOLOGICAL Hx Sexually Transmitted Disorders: No - PSYCHIATRIC Hx Psychosis: Yes Hx Substance Use: No - SURGICAL HISTORY Hx Coronary Stent: Yes Other/Comment: cabg - ANESTHESIA Hx Anesthesia: Yes Hx Anesthesia Reactions: No Hx Malignant Hyperthermia: No Meds Allergies/Adverse Reactions: Allergies Allergy/AdvReac Type Severity Reaction Status Date / Time ciprofloxacin AdvReac RASH Verified 12/23/17 11:33 - Medications Medications: Current Medications Albuterol/Ipratropium (Duoneb 3 Mg/0.5 Mg (3 Ml) Ud) 3 ml IH Q6 [facility] Last Admin: 04/10/18 08:01 Dose: 3 ml Amlodipine Besylate (Norvasc) 2.5 mg PO DAILY [facility] Fluticasone Propionate (Flonase) 1 actuation NS DAILY [facility] Last Admin: 04/10/18 10:31 Dose: 1 actuation Sodium Chloride (Sodium Chloride 0.45%) 1,000 mls @ 40 mls/hr IV .Q24H [facility] Last Admin: 04/09/18 20:01 Dose: 40 mls/hr Levetiracetam (Keppra 500mg Ivpb) 500 mg in 100 mls @ 420 mls/hr IV Q12 [facility] Last Admin: 04/10/18 10:08 Dose: 420 mls/hr Ceftriaxone Sodium (Rocephin 1 Gram Ivpb) 1 gm in 100 mls @ 100 mls/hr IVPB DAILY [facility] PRN Reason: Protocol Last Admin: 04/10/18 10:08 Dose: 100 mls/hr Metoprolol Succinate (Toprol Xl) 50 mg PO BID [facility] Last Admin: 04/10/18 10:12 Dose: 50 mg Risperidone (Risperdal Tab) 0.5 mg PO BID [facility] PRN Reason: Protocol Last Admin: 04/10/18 10:07 Dose: 0.5 mg Physical Exam - Constitutional Appears: No Acute Distress, Chronically Ill - Head Exam Head Exam: ATRAUMATIC, NORMOCEPHALIC - Neck Exam Neck exam: Positive for: Normal Inspection - Respiratory Exam Respiratory Exam: Clear to Auscultation Bilateral, NORMAL BREATHING PATTERN - Cardiovascular Exam Cardiovascular Exam: REGULAR RHYTHM, RRR, +S1, +S2 - GI/Abdominal Exam GI & Abdominal Exam: Normal Bowel Sounds, Soft - Rectal Exam Rectal Exam: Deferred - Extremities Exam Extremities exam: Positive for: normal inspection. Negative for: calf tenderness - Back Exam Back exam: NORMAL INSPECTION. absent: CVA tenderness (L), CVA tenderness (R) - Psychiatric Exam Psychiatric exam: Flat Affect - Skin Skin Exam: Normal Color Results - Vital Signs Recent Vital Signs: Last Vital Signs Temp 97.8 F 04/10/18 07:00 Pulse 77 04/10/18 08:03 Resp 18 04/10/18 07:00 BP 124/68 04/10/18 10:12 Pulse Ox 99 04/10/18 00:10 - Labs Result Diagrams: 04/10/18 06:30 04/10/18 06:30 Labs: Laboratory Results - last 24 hr 04/10/18 04/10/18 04/10/18 02:30 06:30 06:30 WBC 6.9 D RBC 2.80 L Hgb 8.2 L Hct 24.9 L MCV 88.9 MCH 29.3 MCHC 32.9 RDW 15.5 H Plt Count 257 MPV 10.9 Sodium 147 Potassium 4.6 Chloride 101 Carbon Dioxide 21 Anion Gap 30 H BUN 165 H* Creatinine 12.3 H* Est GFR ( Amer) 5 Est GFR (Non-Af Amer) 4 Random Glucose 137 H Calcium 9.7 Total Bilirubin 0.6 AST 17 D ALT 30 Alkaline Phosphatase 139 H Total Protein 9.1 H Albumin 3.8 Globulin 5.3 Albumin/Globulin Ratio 0.7 L Urine Color Yellow Urine Appearance Sl cloudy Urine pH 7.0 Ur Specific [place] 1.010 Urine Protein 30 H Urine Glucose (UA) Negative Urine Ketones Negative Urine Blood Trace-lysed H Urine Nitrate Negative Urine Bilirubin Negative Urine Urobilinogen 0.2 Ur Leukocyte Esterase Moderate H Urine RBC 0 - 2 Urine WBC 5 - 10 Ur Epithelial Cells 0 - 2 Urine Bacteria Occ Assessment & Plan - Assessment and Plan (Free Text) Assessment: Multiple Myeloma, complicated by Renal Failure -Continue IV fluids, keep pt well hydrated -Start Dexamethasone 20mg IV for the next 4 days -Start GI PPX, Protonix 40mg -Uric acid 13.9, may consider Allopurinol -Called pt Public Guardian, Brendon Linares ([phone]), discussed case -Spoke with and Consulted Jyoti, Nephrology, will follow up with recommendations -Renal US: showed multiple BL renal stones, which may need to be correlated with CAT scan -However, pt renal function is poor, CR 12 -If pt does need dialysis in the future, we will transfer him to [facility] -ECHO: showed LV normal size with mild concentric hypertrophy, EF is normal range, AV extremely thick, AR mild, MR moderate, TR mild-moderate, Pulm HTN - mild-moderate. -EKG: A Flutter, Variable AV block, Abnormal EKG Pt was seen and examined and case was discussed with at length with attending physician Dr Miranda. Jerzy Menard PGY-1
[2018-04-10] MEDS ORDERED: Dexamethasone 20 mg / 5 ml Inj IVP SCH (11:30)
--- NOTE | 2018-04-10 11:36 | DS ---
HOSPITAL COURSE: I saw him resting comfortably in bed. He is completely demented. He says hello that is about it and he does eat. Other than that, he is very weak. He gets out of bed to a wheelchair that is his baseline. He is on DuoNebs, Flonase, Keppra, Norvasc, Risperdal, IV fluids and Toprol. We have to go to IV medications because he was not taking his meds yesterday. PHYSICAL EXAMINATION: VITAL SIGNS: He has a 97.8 temperature, 77 pulse, 125/60 blood pressure, 18 respiratory rate, 99% O2 sat on room air. HEENT: Head: Atraumatic, normocephalic. HEART: Regular rate. LUNGS: Decreased breath sounds, but clear. ABDOMEN: Soft. EXTREMITIES: No edema. He has contracted a little bit. LABORATORY DATA: He has a 6.9 white count, 8.2 hemoglobin, dilutional from IV fluids, 24.9 hematocrit with 257 platelets. The problem is his kidney function. He has 147 sodium, potassium 4.6, BUN is 165, creatinine 12.3. GFR is 4. He has an acute kidney failure, sugar is 137, calcium is 9.7, total bili is 0.6, AST is 17, ALT is 30, alk phos 139, total protein is 9.1. He also has little bit of a UTI. I will add Rocephin for the UTI. Also, I discussed with Renal, if we need to start doing hemodialysis or not on him with such elevated numbers or do we let him be due to his mental capacity. So, we are working on that. I will discuss this with the guardian. So, he can make a informed opinion. In the meantime, we continue to be aggressive in his treatment and hopefully, he will continue to improve. I will keep him as comfortable as possible with checking his labs and hopefully, he will continue to eat well. Jerzy Walsh DO
--- NOTE | 2018-04-10 12:04 | US ---
Date of service: 04/10/2018 PROCEDURE: Ultrasound of the Bladder HISTORY: BIPIN. r/o retention COMPARISON: None available. TECHNIQUE: Sonographic evaluation of the bladder was performed. FINDINGS: Unremarkable without wall thickening or intraluminal debris. No calculus or gross mass lesion. No free fluid in pelvis. Prevoid Volume: 478 cc. Post void residual: 42 cc. IMPRESSION: 42 cc PVR.
[2018-04-10] MEDS: Dexamethasone 20 MG in Sodium Chloride 0.9% 50 ML IV SCH (12:31)
[2018-04-10] MEDS: Sodium Chloride 0.45% 1,000 ML IV SCH ×2 (23:39)
[2018-04-11] MEDS: Albuterol-Ipratrop 3 mg / 0.5 (3 ml) UD IH SCH ×4 (01:06→19:36)
--- NOTE | 2018-04-11 01:58 | CON ---
DATE: 04/10/2018 REASON FOR CONSULTATION: Acute kidney injury, altered mental status, hyperkalemia. HISTORY OF PRESENT ILLNESS: A 77-year-old male previously known to me from a recent evaluation in February when the patient was seen in the ICU because of acute kidney injury in the setting of multiple myeloma. At that time, patient was admitted to the ICU for increasing lethargy, no prior knowledge of chronic kidney disease. He was found to have acute kidney injury during that admission also. His creatinine was 7. His BUN was 91. He was also hyperkalemic. Patient was treated with IV fluids, hydration. At the time of discharge, his creatinine was 3.4. Patient is a terrell of the [facility]. He was sent to the [place] [facility]. He is now readmitted. He was seen by Dr. Miranda yesterday in the office who did blood test and found his creatinine to be elevated and sent into the emergency room. In the emergency room, he was found to be hypertensive. Initially, blood pressure was 151/100. Afebrile. Disoriented, confused, lethargic. His BUN was 166 and his creatinine was 12.3. His potassium was 5.4. Hence consultation is requested. PAST MEDICAL AND SURGICAL HISTORY: CAD, CABG, PTCA and stent, dementia, CVA, NIDDM, schizoaffective disorder, multiple myeloma dating back 10 years, IgA myeloma. FAMILY HISTORY: Noncontributory. SOCIAL HISTORY: Not available. REVIEW OF SYSTEMS: Unavailable as the patient is not responsive. MEDICATIONS: In the [place] [facility] included timolol, DuoNeb, Risperdal, heparin, Neurontin, Lasix, Keppra, Flonase, Toprol XL, amlodipine. PHYSICAL EXAMINATION: GENERAL: Thinly built elderly male, lying in bed, not responsive, lethargic, appears to have involuntary jerky movements of his upper neck extremities. VITAL SIGNS: Blood pressure 109/48, heart rate 65, respiratory rate 16. NECK: Supple, no JVD. LUNGS: Bilateral equal air entry, bilateral equal expansion, no rales. CARDIAC: S1, S2. Regular rate and rhythm. No murmur, no rubs. ABDOMEN: Soft, nondistended, nontender, bowel sounds present. EXTREMITIES: No lower extremity edema. INTAKE AND OUTPUT: Not charted. LABORATORY DATA: Urinalysis yellow, slightly cloudy, pH 7, specific 1.010, protein 30, glucose negative, ketones negative, blood trace lysed, moderately leukocyte esterase. Sodium 147, potassium 4.6, chloride 101, CO2 of 21, BUN 165, creatinine 12.3, glucose 137, calcium 9.7. AST 17, ALT 30, albumin 3.8. WBC 6.9, hemoglobin 8.2, hematocrit 25, platelets 257. CURRENT MEDICATIONS: Decadron, DuoNeb, Flonase, Keppra, amlodipine 2.5, Protonix, Risperdal, Rocephin 1 g, half normal saline at 40, Toprol-XL, Keppra. ASSESSMENT: 1. Acute kidney injury, superimposed on chronic kidney disease, stage IV/V (?). 2. Hyperkalemia secondary to acute kidney injury. 3. Advanced dementia. 4. Advanced multiple myeloma with multiple bony lesions, multiple punctate foci of abnormal accumulation. PLAN: 1. Patient is not volume overloaded, but he appears to be uremic. He has some asterixis. At this time, ideally, patient would require dialysis for his acute kidney injury, suspected likely secondary to his myeloma kidney. 2. But in light of his multiple comorbidities, advanced dementia, advanced multiple myeloma, schizoaffective disorder, CAD, perhaps renal replacement therapy is not advised. 3. Case will have to be discussed in a multidisciplinary meeting. 4. Continue IV fluids for the time being. 5. Continue Decadron. 6. Continue comfort care. Mikaela Montes MD
[2018-04-11 07:31] LABS: HEMOGLOBIN 8.2 g/dL (14.0-18.0); MEAN CELL VOLUME 89.5 fl (80.0-105.0); MEAN CORPUSCULAR HEMOGLOBIN 29.8 pg (25.0-35.0); MEAN CORPUSCULAR HGB CONC 33.3 g/dl (31.0-37.0); MEAN PLATELET VOLUME 11.1 fl (7.0-11.0); RBC 2.75 10^6/uL (3.5-6.1); RED CELL DISTRIBUTION WIDTH 15.4 % (11.5-14.5); WHITE BLOOD COUNT 7.9 10^3/ul (4.5-11.0)
[2018-04-11 07:44] LABS: ALB/GLOB RATIO 0.7 (1.1-1.8); ALBUMIN 3.9 g/dL (3.0-4.8); CALCIUM 9.5 mg/dL (8.4-10.5)
[2018-04-11] MEDS: cefTRIAXone 1 gm 1 GM/100 ML BAG IVPB SCH (09:20)
[2018-04-11] MEDS: Metoprolol Succinate 50 mg XL Tab PO SCH ×2 (09:21→17:20)
[2018-04-11] MEDS: levETIRAcetam 500mg IVPB 500 MG/100 ML BAG IV SCH ×2 (09:23→21:05)
[2018-04-11] MEDS: Dexamethasone 20 MG in Sodium Chloride 0.9% 50 ML IV SCH (10:05)
[2018-04-11] MEDS: Fluticasone Nasal 50 mcg/Spray NS SCH (10:05)
--- NOTE | 2018-04-11 13:28 | PN ---
DATE: 04/11/2018 SUBJECTIVE: I saw him in the hospital bed in [facility]. He has multiple issues. He has end-stage renal disease, acute kidney injury, UTI, seizures, hypertension, multiple myeloma. The decision was made by Renal that it is not worth to do dialysis on him and I discussed with the POA and we are going to get him back to [facility] hopefully on Friday for hospice. He is on IV fluids, Decadron IV, DuoNebs, Flonase, Keppra IV, Norvasc, Protonix, Rocephin and Toprol. We will continue this treatment until we can get him back to [facility] once all the forms are filled out. I filled out my form, waiting for Renal to be the second doctor on the form. OBJECTIVE: VITAL SIGNS: Temperature 97.8, 65 pulse, 128/65 blood pressure, 20 respiratory rate, 97% O2 sat on room air. HEENT: His head is atraumatic, normocephalic. GENERAL: He is alert, talking, confused. HEART: Regular rate. LUNGS: Decreased breath sounds, but clear. ABDOMEN: Soft. EXTREMITIES: No edema. DATA: He does have a 7.9 white count, 8.2 hemoglobin, 24.6 hematocrit with 241 platelets. He has a 147 sodium, potassium 4.7, BUN is 166, creatinine 12.3. GFR is 4. Sugar is 203, calcium is 9.5, total bili is 0.4, AST is 24, ALT is 29, alkaline phosphatase 130, total protein is 9.3. He is not in any apparent distress or any apparent pain. I want to start to decrease his medications. I am going to stop his Rocephin. Also, continue with aggressive treatment and care. He has acute kidney injury. hopefully get into [facility] for hospice on Friday. Discussed at length with the nurse. Jerzy Walsh DO MTDRadha
--- NOTE | 2018-04-11 17:36 | PN ---
DATE: 04/11/2018 SUBJECTIVE: The patient is seen lying in bed. He is arousable. He does not appear to be in any kind of acute distress. He denies any pain. PHYSICAL EXAMINATION: GENERAL: Thinly built, cachectic-appearing elderly male lying in bed. VITAL SIGNS: Blood pressure 125/60, heart rate 84, respiratory rate 18, temperature 97.7. HEENT: Normocephalic, atraumatic, positive pallor. NECK: Supple, no JVD. LUNGS: Bilateral equal air entry, bilateral equal expansion. CARDIAC: S1 and S2, regular rate and rhythm, no murmur, no rub. ABDOMEN: Soft, nondistended, nontender, bowel sounds present. EXTREMITIES: No lower extremity edema. INTAKE AND OUTPUT: 880/1150. LABORATORY DATA: WBC 7.9, hemoglobin 8.2, hematocrit 25, platelets 241. Sodium 147, potassium 4.7, chloride 104, CO2 of 19, BUN 156, creatinine 12.3, glucose 205, calcium 9.4. Albumin 3.9, globulin 5.4. Culture, no growth. CURRENT MEDICATIONS: Decadron 20 mg, DuoNeb, Flonase, Keppra, amlodipine 2.5, Protonix 40, Risperdal 0.5 b.i.d., half-normal saline at 40, Toprol-XL 50 b.i.d., and ceftriaxone 1 g. ASSESSMENT: 1. Acute kidney injury superimposed on chronic kidney disease stage 4? 2. Anion gap metabolic acidosis. 3. Advanced multiple myeloma. 4. Dementia. 5. Schizophrenia. 6. Anemia. 7. Hypertension. 8. Hyperkalemia, resolved. PLAN: 1. Case discussed with Dr. Walsh, Dr. Miranda. The patient has advanced multiple myeloma. He has underlying chronic kidney disease 4 . Currently, he has acute kidney injury. He likely has underlying disease secondary to myeloma kidney. At this time, the patient would be advised renal replacement therapy, but in light of his multiple comorbidities and poor prognosis, renal replacement therapy is not really advised. 2. Palliative care consult. 3. Comfort care. 4. Conservative management. 5. Agree with hospice evaluation. Mikaela Montes MD [facility] # [id number]
[2018-04-11] MEDS: Sodium Chloride 0.45% 1,000 ML IV SCH (20:17)
[2018-04-12] MEDS: Albuterol-Ipratrop 3 mg / 0.5 (3 ml) UD IH SCH ×4 (01:35→19:28)
[2018-04-12] MEDS: Pantoprazole 40 mg Susp UD PO SCH (05:46)
[2018-04-12] MEDS: Metoprolol Succinate 50 mg XL Tab PO SCH ×2 (10:16→17:44)
[2018-04-12] MEDS: levETIRAcetam 500mg IVPB 500 MG/100 ML BAG IV SCH ×2 (10:16→22:49)
[2018-04-12] MEDS: Dexamethasone 20 MG in Sodium Chloride 0.9% 50 ML IV SCH (10:16)
[2018-04-12] MEDS: Fluticasone Nasal 50 mcg/Spray NS SCH (10:21)
--- NOTE | 2018-04-12 14:42 | PN ---
DATE: 04/12/2018 SUBJECTIVE: I saw him resting comfortably in bed. He is alert, he is talking, he is eating well. He is not having any dialysis due to his mentation. He is on IV fluids. He is on Decadron. He is on DuoNeb, Flonase, Keppra, Norvasc, Protonix, Risperdal, and metoprolol. PHYSICAL EXAMINATION: VITAL SIGNS: He has a 97.8 temperature, 74 pulse, 122/62 blood pressure, 20 respiratory rate, 97% O2 sat on room air. GENERAL: He can talk difficult, he does not respond well and he speaks Frisian and mostly gibberish, we have a climbing guide. He is pleasantly confused. LABORATORY DATA: He has 7.9 white count, 8.2 hemoglobin, 241 platelets. Sodium 147, potassium 4.1, BUN 166, creatinine 12.3, sugar is 203. AST is 24, ALT is 29, alkaline phosphatase 130. Plan stands from Renal any dialysis. Our plan is to get him to [facility] hopefully tomorrow for hospice at [facility]. He has chronic kidney disease, kidney injury, advanced multiple myeloma, dementia, schizophrenia, and anemia. So, I called Aga Zavaleta to arrange for hospice to be set up tomorrow, Friday, at [facility]; hopefully, we could arrange that. Jerzy Walsh DO MTDD
[2018-04-12] MEDS ORDERED: Dextrose 50% SYRINGE Inj (50 ml) IV PRN (17:04)
[2018-04-12] MEDS: Insulin Reg-HIGH-Coverage SC SCH ×2 (17:59→23:37)
--- NOTE | 2018-04-12 20:41 | CP.PCM.PN ---
Subjective - Date & Time of Evaluation Date of Evaluation: 04/11/18 Time of Evaluation: 21:00 - Subjective Subjective: Unable to assess. The patient not responsive to verbal questions. Received risperadone earlier today. ROS: unable to asess Objective - Vital Signs/Intake and Output Vital Signs (last 24 hours): Temp Pulse Resp BP Pulse Ox 98.5 F 85 18 131/60 98 04/12/18 18:00 04/12/18 18:00 04/12/18 18:00 04/12/18 18:00 04/12/18 18:00 Intake and Output: 04/12/18 04/13/18 18:59 06:59 Intake Total 1920 Output Total 1200 Balance 720 - Medications Medications: Current Medications Albuterol/Ipratropium (Duoneb 3 Mg/0.5 Mg (3 Ml) Ud) 3 ml IH Q6 [facility] Last Admin: 04/12/18 19:28 Dose: Not Given Amlodipine Besylate (Norvasc) 2.5 mg PO DAILY [facility] Last Admin: 04/12/18 10:20 Dose: 2.5 mg Fluticasone Propionate (Flonase) 1 actuation NS DAILY [facility] Last Admin: 04/12/18 10:21 Dose: 1 actuation Sodium Chloride (Sodium Chloride 0.45%) 1,000 mls @ 40 mls/hr IV .Q24H [facility] Last Admin: 04/11/18 20:17 Dose: 40 mls/hr Levetiracetam (Keppra 500mg Ivpb) 500 mg in 100 mls @ 420 mls/hr IV Q12 [facility] Last Admin: 04/12/18 10:16 Dose: 420 mls/hr Dexamethasone 20 mg/ Sodium (Chloride) 55 mls @ 165 mls/hr IV DAILY [facility] Last Admin: 04/12/18 10:16 Dose: 165 mls/hr Insulin Human Regular (Humulin R High) 0 units SC ACHS [facility] PRN Reason: Protocol Last Admin: 04/12/18 17:59 Dose: 12 units Metoprolol Succinate (Toprol Xl) 50 mg PO BID [facility] Last Admin: 04/12/18 17:44 Dose: 50 mg Pantoprazole Sodium (Protonix Susp) 40 mg PO 0600 [facility] Last Admin: 04/12/18 05:46 Dose: Not Given Risperidone (Risperdal Tab) 0.5 mg PO BID [facility] PRN Reason: Protocol Last Admin: 04/12/18 17:45 Dose: 0.5 mg - Labs Labs: 04/11/18 06:20 04/11/18 06:20 PT 13.8 SECONDS (9.4-12.5) H 04/09/18 20:35 INR 1.21 (0.93-1.08) H 04/09/18 20:35 APTT 37.0 Seconds (25.1-36.5) H 04/09/18 20:35 - Constitutional Appears: No Acute Distress, Confused - Head Exam Head Exam: ATRAUMATIC, NORMAL INSPECTION, NORMOCEPHALIC - Respiratory Exam Respiratory Exam: Clear to Ausculation Bilateral, NORMAL BREATHING PATTERN - Cardiovascular Exam Cardiovascular Exam: REGULAR RHYTHM, +S1, +S2. absent: Murmur - GI/Abdominal Exam GI & Abdominal Exam: Soft, Normal Bowel Sounds. absent: Tenderness Assessment and Plan - Assessment and Plan (Free Text) Assessment: Mr. Simmons is a 77 y/o man with pmhx significant for MM, dementia, CHF, schizoaffective d/o who presents with acute renal failure in setting of possible myelomatous kidney involvement. After discussion with primary team and guardian a decision was made to peruse hospice care which seems appropriate given the patient's medical comorbidities. Focus on symptoms based management. Jamar Miranda MD Oncology Service
--- NOTE | 2018-04-12 20:47 | CP.PCM.PN ---
Subjective - Date & Time of Evaluation Date of Evaluation: 04/12/18 Time of Evaluation: 21:00 - Subjective Subjective: Patient eating at bedside with assistance. Denies pain but otherwise unable to gauge ROS Objective - Vital Signs/Intake and Output Vital Signs (last 24 hours): Temp Pulse Resp BP Pulse Ox 98.5 F 85 18 131/60 98 04/12/18 18:00 04/12/18 18:00 04/12/18 18:00 04/12/18 18:00 04/12/18 18:00 Intake and Output: 04/12/18 04/13/18 18:59 06:59 Intake Total 1920 Output Total 1200 Balance 720 - Medications Medications: Current Medications Albuterol/Ipratropium (Duoneb 3 Mg/0.5 Mg (3 Ml) Ud) 3 ml IH Q6 [facility] Last Admin: 04/12/18 19:28 Dose: Not Given Amlodipine Besylate (Norvasc) 2.5 mg PO DAILY [facility] Last Admin: 04/12/18 10:20 Dose: 2.5 mg Fluticasone Propionate (Flonase) 1 actuation NS DAILY [facility] Last Admin: 04/12/18 10:21 Dose: 1 actuation Sodium Chloride (Sodium Chloride 0.45%) 1,000 mls @ 40 mls/hr IV .Q24H [facility] Last Admin: 04/11/18 20:17 Dose: 40 mls/hr Levetiracetam (Keppra 500mg Ivpb) 500 mg in 100 mls @ 420 mls/hr IV Q12 [facility] Last Admin: 04/12/18 10:16 Dose: 420 mls/hr Dexamethasone 20 mg/ Sodium (Chloride) 55 mls @ 165 mls/hr IV DAILY [facility] Last Admin: 04/12/18 10:16 Dose: 165 mls/hr Insulin Human Regular (Humulin R High) 0 units SC ACHS [facility] PRN Reason: Protocol Last Admin: 04/12/18 17:59 Dose: 12 units Metoprolol Succinate (Toprol Xl) 50 mg PO BID [facility] Last Admin: 04/12/18 17:44 Dose: 50 mg Pantoprazole Sodium (Protonix Susp) 40 mg PO 0600 [facility] Last Admin: 04/12/18 05:46 Dose: Not Given Risperidone (Risperdal Tab) 0.5 mg PO BID [facility] PRN Reason: Protocol Last Admin: 04/12/18 17:45 Dose: 0.5 mg - Labs Labs: 04/11/18 06:20 04/11/18 06:20 PT 13.8 SECONDS (9.4-12.5) H 04/09/18 20:35 INR 1.21 (0.93-1.08) H 04/09/18 20:35 APTT 37.0 Seconds (25.1-36.5) H 04/09/18 20:35 - Constitutional Appears: Non-toxic - Respiratory Exam Respiratory Exam: Clear to Ausculation Bilateral, NORMAL BREATHING PATTERN - Cardiovascular Exam Cardiovascular Exam: REGULAR RHYTHM, +S1, +S2. absent: Murmur - GI/Abdominal Exam GI & Abdominal Exam: Soft, Normal Bowel Sounds. absent: Tenderness Assessment and Plan - Assessment and Plan (Free Text) Assessment: Mr. Simmons is a 77 y/o man with pmhx significant for MM, dementia, CHF, schizoaffective d/o who presents with acute renal failure in setting of possible myelomatous kidney involvement. After discussion with primary team and guardian a decision was made to pursue hospice care which seems appropriate given the patient's medical comorbidities. Focus on symptoms based management. Jamar Miranda MD Oncology Service
[2018-04-12] MEDS ORDERED: Insulin Reg-HIGH-Coverage SC SCH (22:00)
[2018-04-12] MEDS: Sodium Chloride 0.45% 1,000 ML IV SCH (22:46)
[2018-04-13] MEDS ORDERED: Oxycodone/Acetaminophen 5/325 mg Tab PO ONE (01:08)
[2018-04-13] MEDS: Albuterol-Ipratrop 3 mg / 0.5 (3 ml) UD IH SCH ×4 (01:15→19:42)
--- NOTE | 2018-04-13 01:32 | CP.PCM.PN ---
Subjective - Date & Time of Evaluation Date of Evaluation: 04/13/18 Time of Evaluation: 01:30 - Subjective Subjective: Seen for agitation. Has received Ativan 1 mg IV. Complains of pain all over body . Has no other complaints. Medical record was reviewed. This 77 year old white male was admitted with elevated Renal Function Tests, lethargy. Has PMH of multiple myeloma, CAD,CABG, BIPIN, atrial fibrillation, CVA, arthritis , DM, schizophrenia, dementia, Alzheimer's disease. Objective - Vital Signs/Intake and Output Vital Signs (last 24 hours): Temp Pulse Resp BP Pulse Ox 97.5 F L 84 20 137/94 H 99 04/13/18 00:01 04/13/18 00:01 04/13/18 00:01 04/13/18 00:01 04/13/18 00:01 Intake and Output: 04/12/18 04/13/18 18:59 06:59 Intake Total 1920 Output Total 1200 Balance 720 - Medications Medications: Current Medications Albuterol/Ipratropium (Duoneb 3 Mg/0.5 Mg (3 Ml) Ud) 3 ml IH Q6 LONG Last Admin: 04/13/18 01:15 Dose: Not Given Amlodipine Besylate (Norvasc) 2.5 mg PO DAILY LONG Last Admin: 04/12/18 10:20 Dose: 2.5 mg Fluticasone Propionate (Flonase) 1 actuation NS DAILY LONG Last Admin: 04/12/18 10:21 Dose: 1 actuation Sodium Chloride (Sodium Chloride 0.45%) 1,000 mls @ 40 mls/hr IV .Q24H LONG Last Admin: 04/12/18 22:46 Dose: 40 mls/hr Levetiracetam (Keppra 500mg Ivpb) 500 mg in 100 mls @ 420 mls/hr IV Q12 LONG Last Admin: 04/12/18 22:49 Dose: 420 mls/hr Dexamethasone 20 mg/ Sodium (Chloride) 55 mls @ 165 mls/hr IV DAILY [facility] Last Admin: 04/12/18 10:16 Dose: 165 mls/hr Insulin Human Regular (Humulin R High) 0 units SC ACHS LONG PRN Reason: Protocol Last Admin: 04/12/18 23:37 Dose: 4 units Metoprolol Succinate (Toprol Xl) 50 mg PO BID LONG Last Admin: 04/12/18 17:44 Dose: 50 mg Pantoprazole Sodium (Protonix Susp) 40 mg PO 0600 [facility] Last Admin: 04/12/18 05:46 Dose: Not Given Risperidone (Risperdal Tab) 0.5 mg PO BID [facility] PRN Reason: Protocol Last Admin: 04/12/18 17:45 Dose: 0.5 mg - Labs Labs: 04/11/18 06:20 04/11/18 06:20 PT 13.8 SECONDS (9.4-12.5) H 04/09/18 20:35 INR 1.21 (0.93-1.08) H 04/09/18 20:35 APTT 37.0 Seconds (25.1-36.5) H 04/09/18 20:35 Micro Results 04/10/18 09:00 Nose MRSA Culture (Admit) - Final MRSA NOT DETECTED 04/10/18 02:30 Urine Urine Culture - Final <10,000 CFU/ML. MULTIPLE SPECIES. PROBABLE CONTAMINATION. Most Recent Lab Values WBC 7.9 10^3/ul (4.5-11.0) 04/11/18 06:20 RBC 2.75 10^6/uL (3.5-6.1) L 04/11/18 06:20 Hgb 8.2 g/dL (14.0-18.0) L 04/11/18 06:20 Hct 24.6 % (42.0-52.0) L 04/11/18 06:20 MCV 89.5 fl (80.0-105.0) 04/11/18 06:20 MCH 29.8 pg (25.0-35.0) 04/11/18 06:20 MCHC 33.3 g/dl (31.0-37.0) 04/11/18 06:20 RDW 15.4 % (11.5-14.5) H 04/11/18 06:20 Plt Count 241 10^3/uL (120.0-450.0) 04/11/18 06:20 MPV 11.1 fl (7.0-11.0) H 04/11/18 06:20 Gran % 80.5 % (50.0-68.0) H 04/09/18 19:25 Lymph % (Auto) 9.2 % (22.0-35.0) L 04/09/18 19:25 [place] % (Auto) 7.6 % (1.0-6.0) H 04/09/18 19:25 Eos % (Auto) 2.5 % (1.5-5.0) 04/09/18 19:25 Baso % (Auto) 0.2 % (0.0-3.0) 04/09/18 19:25 Gran # 4.45 (1.4-6.5) 04/09/18 19:25 Lymph # (Auto) 0.5 (1.2-3.4) L 04/09/18 19:25 [place] # (Auto) 0.4 (0.1-0.6) 04/09/18 19:25 Eos # (Auto) 0.1 (0.0-0.7) 04/09/18 19:25 Baso # (Auto) 0.01 K/mm3 (0.0-2.0) 04/09/18 19:25 PT 13.8 SECONDS (9.4-12.5) H 04/09/18 20:35 INR 1.21 (0.93-1.08) H 04/09/18 20:35 APTT 37.0 Seconds (25.1-36.5) H 04/09/18 20:35 Sodium 147 mmol/L (132-148) 04/11/18 06:20 Potassium 4.7 mmol/L (3.6-5.0) 04/11/18 06:20 Chloride 104 mmol/L (98-107) 04/11/18 06:20 Carbon Dioxide 19 mmol/L (21-33) L 04/11/18 06:20 Anion Gap 29 (10-20) H 04/11/18 06:20 BUN 166 mg/dL (7-21) H* 04/11/18 06:20 Creatinine 12.3 mg/dl (0.8-1.5) H* 04/11/18 06:20 Est GFR ( Amer) 5 04/11/18 06:20 Est GFR (Non-Af Amer) 4 04/11/18 06:20 POC Glucose (mg/dL) 386 mg/dL (65-110) H 04/12/18 22:25 Random Glucose 205 mg/dL (70-110) H 04/11/18 06:20 Calcium 9.5 mg/dL (8.4-10.5) 04/11/18 06:20 Total Bilirubin 0.4 mg/dL (0.2-1.3) 04/11/18 06:20 AST 24 U/L (17-59) 04/11/18 06:20 ALT 29 U/L (7-56) 04/11/18 06:20 Alkaline Phosphatase 130 U/L (38-126) H 04/11/18 06:20 Lactate Dehydrogenase 510 U/L (333-699) 04/09/18 19:25 Total Creatine Kinase 23 U/L (35-230) L 04/09/18 19:25 Troponin I 0.06 ng/mL 04/09/18 19:25 Total Protein 9.3 g/dL (5.8-8.3) H 04/11/18 06:20 Albumin 3.9 g/dL (3.0-4.8) 04/11/18 06:20 Globulin 5.4 gm/dL 04/11/18 06:20 Albumin/Globulin Ratio 0.7 (1.1-1.8) L 04/11/18 06:20 Urine Color Yellow (YELLOW) 04/10/18 02:30 Urine Appearance Sl cloudy (CLEAR) 04/10/18 02:30 Urine pH 7.0 (4.7-8.0) 04/10/18 02:[address] 1.010 (1.005-1.035) 04/10/18 02:30 Urine Protein 30 mg/dL (<30 mg/dL) H 04/10/18 02:30 Urine Glucose (UA) Negative mg/dL (NEGATIVE) 04/10/18 02:30 Urine Ketones Negative mg/dL (NEGATIVE) 04/10/18 02:30 Urine Blood Trace-lysed (NEGATIVE) H 04/10/18 02:30 Urine Nitrate Negative (NEGATIVE) 04/10/18 02:30 Urine Bilirubin Negative (NEGATIVE) 04/10/18 02:30 Urine Urobilinogen 0.2 E.U./dL (<1 E.U./dL) 04/10/18 02:30 Ur Leukocyte Esterase Moderate [place]/uL (NEGATIVE) H 04/10/18 02:30 Urine RBC 0 - 2 /hpf (0-2) 04/10/18 02:30 Urine WBC 5 - 10 /hpf (0-6) 04/10/18 02:30 Ur Epithelial Cells 0 - 2 /hpf (0-5) 04/10/18 02:30 Urine Bacteria Occ (NEG) 04/10/18 02:30 - Constitutional Appears: No Acute Distress - Head Exam Head Exam: ATRAUMATIC, NORMAL INSPECTION, NORMOCEPHALIC - Eye Exam Eye Exam: Normal appearance - ENT Exam ENT Exam: Normal External Ear Exam - Neck Exam Neck Exam: Normal Inspection - Respiratory Exam Respiratory Exam: NORMAL BREATHING PATTERN - Cardiovascular Exam Cardiovascular Exam: absent: JVD - GI/Abdominal Exam GI & Abdominal Exam: absent: Distended - Rectal Exam Rectal Exam: Deferred - Exam Additional comments: Deferred. - Extremities Exam Extremities Exam: Normal Inspection - Back Exam Back Exam: NORMAL INSPECTION - Neurological Exam Neurological Exam: Alert, Awake - Psychiatric Exam Psychiatric exam: Agitated - Skin Skin Exam: Normal Color Assessment and Plan - Assessment and Plan (Free Text) Assessment: Agitation. Generalized Pain. Dementia. Alzheimer's disease. CAD. S/P CABG. Multiple myeloma. BIPIN. Atrial fibrillation. DM. Schizophrenia. Plan: Ativan 1 mg IV x 1. Percocet 5/325 I PO now. Continue present management.
[2018-04-13] MEDS: Pantoprazole 40 mg Susp UD PO SCH (06:06)
--- NOTE | 2018-04-13 07:42 | CP.PCM.PN ---
Subjective - Date & Time of Evaluation Date of Evaluation: 04/13/18 Time of Evaluation: 07:20 - Subjective Subjective: Kirk Kwok DO, Internal Medicine Resident PGY-1 Hematology/Oncology Progress Note for Dr. Miranda Patient was seen and examined at bedside. Case and plan discussed with primary, Dr. Walsh. The tentative plan is for transfer to [facility] on hospice. Per RN, patient was agitated overnight requiring 1.5 mg of ativan. Patient was sleeping quietly at time of examination. Objective - Vital Signs/Intake and Output Vital Signs (last 24 hours): Temp Pulse Resp BP Pulse Ox 97.0 F L 80 20 146/76 98 04/13/18 06:00 04/13/18 06:00 04/13/18 06:00 04/13/18 06:00 04/13/18 06:00 Intake and Output: 04/13/18 04/13/18 06:59 18:59 Intake Total 810 Output Total 900 Balance -90 - Medications Medications: Current Medications Albuterol/Ipratropium (Duoneb 3 Mg/0.5 Mg (3 Ml) Ud) 3 ml IH Q6 LONG Last Admin: 04/13/18 01:15 Dose: Not Given Amlodipine Besylate (Norvasc) 2.5 mg PO DAILY LONG Last Admin: 04/12/18 10:20 Dose: 2.5 mg Fluticasone Propionate (Flonase) 1 actuation NS DAILY LONG Last Admin: 04/12/18 10:21 Dose: 1 actuation Sodium Chloride (Sodium Chloride 0.45%) 1,000 mls @ 40 mls/hr IV .Q24H LONG Last Admin: 04/12/18 22:46 Dose: 40 mls/hr Levetiracetam (Keppra 500mg Ivpb) 500 mg in 100 mls @ 420 mls/hr IV Q12 LONG Last Admin: 04/12/18 22:49 Dose: 420 mls/hr Dexamethasone 20 mg/ Sodium (Chloride) 55 mls @ 165 mls/hr IV DAILY [facility] Last Admin: 04/12/18 10:16 Dose: 165 mls/hr Insulin Human Regular (Humulin R High) 0 units SC ACHS LONG PRN Reason: Protocol Last Admin: 04/12/18 23:37 Dose: 4 units Metoprolol Succinate (Toprol Xl) 50 mg PO BID [facility] Last Admin: 04/12/18 17:44 Dose: 50 mg Pantoprazole Sodium (Protonix Susp) 40 mg PO 0600 [facility] Last Admin: 04/13/18 06:06 Dose: Not Given Risperidone (Risperdal Tab) 0.5 mg PO BID [facility] PRN Reason: Protocol Last Admin: 04/12/18 17:45 Dose: 0.5 mg - Labs Labs: 04/11/18 06:20 04/11/18 06:20 PT 13.8 SECONDS (9.4-12.5) H 04/09/18 20:35 INR 1.21 (0.93-1.08) H 04/09/18 20:35 APTT 37.0 Seconds (25.1-36.5) H 04/09/18 20:35 - Constitutional Appears: No Acute Distress - Head Exam Head Exam: ATRAUMATIC, NORMOCEPHALIC - ENT Exam ENT Exam: Mucous Membranes Moist - Respiratory Exam Respiratory Exam: Clear to Ausculation Bilateral, NORMAL BREATHING PATTERN. absent: Rales, Rhonchi, Wheezes - Cardiovascular Exam Cardiovascular Exam: RRR, +S1, +S2. absent: Diastolic murmur, Gallop, Rubs, Murmur Assessment and Plan - Assessment and Plan (Free Text) Assessment: Mr. Simmons is a 77 year old male with PMH of multiple myeloma (with renal failure), HTN, Dementia, CHF, seizure, schizoaffective disorder admitted from [facility] for worsening renal function. Presumed Multiple Myeloma -Plan at this point is for palliative care at [facility] -Continue with dexamethasone for supportive care Case and plan were reviewed and discussed with my attending physician Dr. Ruben Kwok, DO IM Resident PGY-1
[2018-04-13 08:08] LABS: HEMOGLOBIN 8.6 g/dL (14.0-18.0); MEAN CELL VOLUME 89.3 fl (80.0-105.0); MEAN CORPUSCULAR HEMOGLOBIN 29.6 pg (25.0-35.0); MEAN CORPUSCULAR HGB CONC 33.1 g/dl (31.0-37.0); MEAN PLATELET VOLUME 10.8 fl (7.0-11.0); RBC 2.91 10^6/uL (3.5-6.1); RED CELL DISTRIBUTION WIDTH 15.3 % (11.5-14.5); WHITE BLOOD COUNT 9.7 10^3/ul (4.5-11.0)
[2018-04-13 08:49] LABS: ALB/GLOB RATIO 0.8 (1.1-1.8); ALBUMIN 3.9 g/dL (3.0-4.8); CALCIUM 8.9 mg/dL (8.4-10.5)
--- NOTE | 2018-04-13 09:23 | CP.PCM.CON ---
History of Present Illness - History of Present Illness History of Present Illness: Palliative consult requested by Dr Sheree Walsh Reason: Goals f care/hospice 77 year old male with history of CAD s/p CABG, Alzheimer's disease, psychosis and Multiple Myeloma who was sent from Dr Miranda's office with creatinine of 12.6. Patient complained of diffuse body pain. Initial labs showed BUN at 166, Creat 12.3, K 5.4, total protein 10.0 and Alk Phos 148. Renal US showed multiple bilateral renal stones. Chest x ray with unchanged RUL mass. PMH: Alzheimer disease, psychosis, lytic lesions likely Multiple Myeloma, DM, CAD s/p CABG, pneumonia. Social History: Former smoker, no alcohol or drug use. Resident of [facility]. Family History: unknown Advance Care Planning: The pait does not have an Advanced Directive. [facility] physician representative is Brendon Cade [phone]. Review of Systems: As per HPI, otherwise negative 12 point review. Vital Signs: T 97.4, P 86, BP 150/82, R 20 , 02 sat 98% room air Labs:Wbc 9.7, Hgb 8.6, Plt 190, Na 151, K 4.6, BUN 176, creat 10.1, glucose 270, Total protein 9.1. Revie wof Systems: As per HPI, 12 point review otherwise negative. Past Patient History - Infectious Disease Hx of Infectious Diseases: None - Past Medical History & Family History Past Medical History?: Yes - Past Social History Smoking Status: Former Smoker - CARDIAC Hx Cardiac Disorders: Yes Hx Congestive Heart Failure: Yes - PULMONARY Hx Pneumonia: Yes Hx Tuberculosis: No - NEUROLOGICAL Hx Alzheimer's Disease: Yes - HEENT Hx HEENT Problems: No - RENAL Hx Chronic Kidney Disease: No - ENDOCRINE/METABOLIC Hx Diabetes Mellitus Type 2: Yes - HEMATOLOGICAL/ONCOLOGICAL Hx Anemia: Yes Hx Cancer: Yes Other/Comment: multiple myeloma? - INTEGUMENTARY Hx Dermatological Problems: No - MUSCULOSKELETAL/RHEUMATOLOGICAL Hx Falls: Yes - GASTROINTESTINAL Hx Gastrointestinal Disorders: Yes - GENITOURINARY/GYNECOLOGICAL Hx Sexually Transmitted Disorders: No - PSYCHIATRIC Hx Psychosis: Yes Hx Substance Use: No - SURGICAL HISTORY Hx Coronary Stent: Yes Other/Comment: cabg - ANESTHESIA Hx Anesthesia: Yes Hx Anesthesia Reactions: No Hx Malignant Hyperthermia: No Meds Allergies/Adverse Reactions: Allergies Allergy/AdvReac Type Severity Reaction Status Date / Time ciprofloxacin AdvReac RASH Verified 12/23/17 11:33 - Medications Medications: Current Medications Albuterol/Ipratropium (Duoneb 3 Mg/0.5 Mg (3 Ml) Ud) 3 ml IH Q6 [facility] Last Admin: 04/13/18 07:58 Dose: 3 ml Amlodipine Besylate (Norvasc) 2.5 mg PO DAILY [facility] Last Admin: 04/12/18 10:20 Dose: 2.5 mg Fluticasone Propionate (Flonase) 1 actuation NS DAILY [facility] Last Admin: 04/12/18 10:21 Dose: 1 actuation Sodium Chloride (Sodium Chloride 0.45%) 1,000 mls @ 40 mls/hr IV .Q24H [facility] Last Admin: 04/12/18 22:46 Dose: 40 mls/hr Levetiracetam (Keppra 500mg Ivpb) 500 mg in 100 mls @ 420 mls/hr IV Q12 [facility] Last Admin: 04/12/18 22:49 Dose: 420 mls/hr Dexamethasone 20 mg/ Sodium (Chloride) 55 mls @ 165 mls/hr IV DAILY [facility] Last Admin: 04/12/18 10:16 Dose: 165 mls/hr Insulin Human Regular (Humulin R High) 0 units SC ACHS [facility] PRN Reason: Protocol Last Admin: 04/12/18 23:37 Dose: 4 units Metoprolol Succinate (Toprol Xl) 50 mg PO BID [facility] Last Admin: 04/12/18 17:44 Dose: 50 mg Pantoprazole Sodium (Protonix Susp) 40 mg PO 0600 [facility] Last Admin: 04/13/18 06:06 Dose: Not Given Risperidone (Risperdal Tab) 0.5 mg PO BID [facility] PRN Reason: Protocol Last Admin: 04/12/18 17:45 Dose: 0.5 mg Physical Exam - Constitutional Appears: Cachectic, Chronically Ill - ENT Exam ENT Exam: Mucous Membranes Moist, Normal Oropharynx - Respiratory Exam Respiratory Exam: Decreased Breath Sounds, NORMAL BREATHING PATTERN - Cardiovascular Exam Cardiovascular Exam: REGULAR RHYTHM, +S1, +S2 - Extremities Exam Extremities exam: Positive for: normal inspection, pedal pulses present - Back Exam Back exam: NORMAL INSPECTION - Neurological Exam Neurological exam: Altered - Skin Skin Exam: Dry, Pallor - Additional Findings Additional findings: palliative performance scale rating 40 % Results - Vital Signs Recent Vital Signs: Last Vital Signs Temp 97.0 F L 04/13/18 06:00 Pulse 80 04/13/18 06:00 Resp 20 04/13/18 06:00 BP 146/76 04/13/18 06:00 Pulse Ox 98 04/13/18 06:00 - Labs Result Diagrams: 04/13/18 05:00 04/13/18 07:30 Labs: Laboratory Results - last 24 hr 04/12/18 04/12/18 04/12/18 11:24 16:12 21:48 WBC RBC Hgb Hct MCV MCH MCHC RDW Plt Count MPV Sodium Potassium Chloride Carbon Dioxide Anion Gap BUN Creatinine Est GFR ( Amer) Est GFR (Non-Af Amer) POC Glucose (mg/dL) 280 H 380 H 445 H* Random Glucose Calcium Total Bilirubin AST ALT Alkaline Phosphatase Total Protein Albumin Globulin Albumin/Globulin Ratio 04/12/18 04/13/18 04/13/18 22:25 03:17 05:00 WBC 9.7 D RBC 2.91 L Hgb 8.6 L Hct 26.0 L MCV 89.3 MCH 29.6 MCHC 33.1 RDW 15.3 H Plt Count 199 MPV 10.8 Sodium Potassium Chloride Carbon Dioxide Anion Gap BUN Creatinine Est GFR ( Amer) Est GFR (Non-Af Amer) POC Glucose (mg/dL) 386 H 333 H Random Glucose Calcium Total Bilirubin AST ALT Alkaline Phosphatase Total Protein Albumin Globulin Albumin/Globulin Ratio 04/13/18 07:30 WBC RBC Hgb Hct MCV MCH MCHC RDW Plt Count MPV Sodium 151 H Potassium 4.6 Chloride 108 H Carbon Dioxide 15 L Anion Gap 32 H BUN 176 H* Creatinine 10.1 H* Est GFR ( Amer) 6 Est GFR (Non-Af Amer) 5 POC Glucose (mg/dL) Random Glucose 276 H Calcium 8.9 Total Bilirubin 0.4 AST 24 ALT 28 Alkaline Phosphatase 126 Total Protein 9.1 H Albumin 3.9 Globulin 5.1 Albumin/Globulin Ratio 0.8 L Assessment & Plan - Assessment and Plan (Free Text) Assessment: 77 year old male with history of Alzheimer's, lytic lesions, CKD, DM, CAD who was admitted with weakness, diffuse body pain, BIPIN on CKD, hyperprotenemia, The patient is lethargic, weak. His appetite is poor. He needs assistance with all ADL's. He complains of "pain al over" The patient is known to me from previous admission of 03/12/18. At that time I spoke with [facility] liaison, Brendon Cade. I informed her that due to patients multiple comorbidities, advance care planning should be initiated. I also expressed concern over findings of new lytic lesions possibly due to Multiple Myeloma. Ms. Cade informed me that patient would be following up with oncologist, Dr Miranda as an out patient I saw the patient this morning. He is weaker and more debilitated, functional status 30- 40 %. He has worsening renal function. The patent complains of diffuse body pain. The patient exhibits progressive decline with profound weakness. He is more lethargic, is appetite is poor. His renal functions are worsening. This is his second hospitalization in less than one month and third this year.Renal following for acute on chronic kidney failure. As per Renal, in light of patient's likely myeloma kidney, advanced dementia, CAD, psychosis dialysis is not recommended. The patient meets criteria for hospice services. Case discussed with Dr Sheree Walsh who is in agreement that hospice services should be initiated. Plan: Goals of care/Advance care planning/Hospice evaluation. BIPIN on CKD: Continue IVF's, monitor for fluid overload> Renal following, dialysis not advised. Pain: Would consider starting Fentanyl 25 mcg transdermal patch
[2018-04-13] MEDS: levETIRAcetam 500mg IVPB 500 MG/100 ML BAG IV SCH ×2 (11:43→22:07)
[2018-04-13] MEDS: Fluticasone Nasal 50 mcg/Spray NS SCH ×2 (11:44→12:00)
[2018-04-13] MEDS: Insulin Reg-HIGH-Coverage SC SCH ×3 (11:45→22:08)
[2018-04-13] MEDS: Metoprolol Succinate 50 mg XL Tab PO SCH ×2 (11:58→18:18)
[2018-04-13] MEDS: Dexamethasone 20 MG in Sodium Chloride 0.9% 50 ML IV SCH (12:32)
[2018-04-13] MEDS ORDERED: DiphenhydrAMINE 50 mg/ml Inj IVP ONE (20:54)
[2018-04-13] MEDS: Sodium Chloride 0.45% 1,000 ML IV SCH (21:07)
--- NOTE | 2018-04-14 00:28 | DS ---
HISTORY OF PRESENT ILLNESS: We are not going to dialysis. He is comfortable, he is eating. He has Ativan when needed. We can decrease his medications as needed. We can send him over to [facility] today on hospice, that is my goal. PHYSICAL EXAMINATION: VITAL SIGNS: He has 97 temp, he has 80 pulse, he has 146/76 blood pressure, 20 respiratory rate, 90% O2sat on room air. HEENT: His head is atraumatic, normocephalic. HEART: Regular rate. LUNGS: Decreased breath sounds, but clear. ABDOMEN: Soft, nontender. EXTREMITIES: No edema. LABORATORY DATA: He does have elevated BUN/creatinine of 166/12.3. His last blood sugar was 280, potassium 4.7. He has 7.9 white count, 8.2 hemoglobin, 24.6 hematocrit with 241 platelets. PLAN: I am hoping we can get him to [facility] today on hospice there. I will discuss with Aga Zavaleta and he has multiple issues. He has acute renal failure, multiple myeloma, dementia, hypertension, UTI, schizophrenia, anemia, but he will be in hospice at [facility] hopefully later today. Jerzy Walsh DO
[2018-04-14] MEDS: Albuterol-Ipratrop 3 mg / 0.5 (3 ml) UD IH SCH ×3 (01:38→07:55)
[2018-04-14] MEDS: Pantoprazole 40 mg Susp UD PO SCH (05:24)
[2018-04-14 06:26] VITALS: O2SAT 95
--- NOTE | 2018-04-14 06:46 | CP.PCM.PN ---
Subjective - Date & Time of Evaluation Date of Evaluation: 04/14/18 Time of Evaluation: 06:40 - Subjective Subjective: Kirk Kwok DO, Internal Medicine Resident PGY-1: Hematology/Oncology Progress Note for Dr. Miranda Patient was seen at bedside. Per RN, he required benadryl and 2 mg of ativan last night for similar agitation as the prior night. Palliative care saw him yesterday and are in agreement with Dr. Walsh that hospice care should be initiated at this point. Objective - Vital Signs/Intake and Output Vital Signs (last 24 hours): Temp Pulse Resp BP Pulse Ox 97.5 F L 95 H 18 121/72 95 04/14/18 06:00 04/14/18 06:00 04/14/18 06:00 04/14/18 06:00 04/14/18 06:00 Intake and Output: 04/13/18 04/14/18 18:59 06:59 Intake Total 1460 1300 Output Total 1550 650 Balance -90 650 - Medications Medications: Current Medications Albuterol/Ipratropium (Duoneb 3 Mg/0.5 Mg (3 Ml) Ud) 3 ml IH Q6 LONG Last Admin: 04/14/18 03:41 Dose: 3 ml Amlodipine Besylate (Norvasc) 2.5 mg PO DAILY [facility] Last Admin: 04/13/18 11:58 Dose: 2.5 mg Fluticasone Propionate (Flonase) 1 actuation NS DAILY [facility] Last Admin: 04/13/18 12:00 Dose: Not Given Sodium Chloride (Sodium Chloride 0.45%) 1,000 mls @ 40 mls/hr IV .Q24H LONG Last Admin: 04/13/18 21:07 Dose: 40 mls/hr Levetiracetam (Keppra 500mg Ivpb) 500 mg in 100 mls @ 420 mls/hr IV Q12 LONG Last Admin: 04/13/18 22:07 Dose: 420 mls/hr Dexamethasone 20 mg/ Sodium (Chloride) 55 mls @ 165 mls/hr IV DAILY [facility] Last Admin: 04/13/18 12:32 Dose: 165 mls/hr Insulin Human Regular (Humulin R High) 0 units SC ACHS [facility] PRN Reason: Protocol Last Admin: 04/13/18 22:08 Dose: 4 units Metoprolol Succinate (Toprol Xl) 50 mg PO BID [facility] Last Admin: 04/13/18 18:18 Dose: 50 mg Pantoprazole Sodium (Protonix Susp) 40 mg PO 0600 [facility] Last Admin: 04/14/18 05:24 Dose: Not Given Risperidone (Risperdal Tab) 0.5 mg PO BID [facility] PRN Reason: Protocol Last Admin: 04/13/18 18:17 Dose: 0.5 mg - Labs Labs: 04/13/18 05:00 04/13/18 07:30 PT 13.8 SECONDS (9.4-12.5) H 04/09/18 20:35 INR 1.21 (0.93-1.08) H 04/09/18 20:35 APTT 37.0 Seconds (25.1-36.5) H 04/09/18 20:35 - Constitutional Appears: Other (sleeping quietly at this time, last dose of ativan given around 0300) - Head Exam Head Exam: ATRAUMATIC, NORMAL INSPECTION, NORMOCEPHALIC - Respiratory Exam Respiratory Exam: NORMAL BREATHING PATTERN. absent: Wheezes, Respiratory Distress - Cardiovascular Exam Cardiovascular Exam: REGULAR RHYTHM, +S1, +S2. absent: Diastolic murmur, Gallop , Rubs, Murmur Assessment and Plan - Assessment and Plan (Free Text) Assessment: Mr. Simmons is a 77 year old male with PMH of multiple myeloma (with renal failure), HTN, Dementia, CHF, seizure, schizoaffective disorder admitted from long-term for worsening renal function. Presumed Multiple Myeloma -Agree with palliative care and Dr. Walsh on the plan of pursuing hospice care -Continue with dexamethasone as part of supportive care -Will sign off at this point, please re-consult as necessary Case and plan were reviewed and discussed in detail with my attending Dr. Ruben Kwok, DO IM Resident PGY-1
[2018-04-14] MEDS: Insulin Reg-HIGH-Coverage SC SCH (08:50)
[2018-04-14] MEDS: Metoprolol Succinate 50 mg XL Tab PO SCH (10:02)
[2018-04-14] MEDS: Fluticasone Nasal 50 mcg/Spray NS SCH (10:03)
[2018-04-14] MEDS: levETIRAcetam 500mg IVPB 500 MG/100 ML BAG IV SCH (10:03)
[2018-04-14 11:22] VITALS: BP 139/65; PULSE 82; RESP 19; TEMP 97.1
--- NOTE | 2018-04-15 04:37 | DS ---
HISTORY OF PRESENT ILLNESS: He is resting comfortably in bed. He is going to be discharged to [facility] on hospice, which is finally set up with his POA. He has got DuoNeb, Flonase, Keppra will be changed to p.o., Norvasc, pantoprazole, Risperdal, and metoprolol. PHYSICAL EXAMINATION: VITAL SIGNS: He has a 97.5 temperature, 81 pulse, 133/55 blood pressure, 18 respiratory rate, 95% O2 sat on room air. HEENT: Head is atraumatic, normocephalic. HEART: Regular rate. LUNGS: Clear to auscultation. ABDOMEN: Soft. EXTREMITIES: No edema, mild contractures. NEUROLOGIC: He is totally confused. LABORATORY DATA: He has 9.7 white count, 8.6 hemoglobin, 26 hematocrit with 199 platelets. He has a 151 sodium, potassium 4.6, BUN is 176, creatinine 10.1, last blood sugar is 267. AST is 24, ALT is 20, alkaline phosphatase 126. ASSESSMENT AND PLAN: He is here for end-stage renal disease. He will be discharged to [facility] for hospice. I will be following him over there. This is set up with his [id number]. Jerzy Walsh DO
== END 2018-04-14 12:35 | DRG 683 ==
LOC: ED 18:06 → ERH 21:06 → 2RSO 04-10 00:29
PROVIDERS: ADMIT Family Medicine; ATTEND Family Medicine
DX: N17.9 Acute kidney failure, unspecified (principal); C90.00 Multiple myeloma not having achieved remission; E87.2 Acidosis; I13.2 Hypertensive heart and chronic kidney disease with heart failure and with stage 5 chronic kidney disease, or end stage renal disease; I48.92 Unspecified atrial flutter; N39.0 Urinary tract infection, site not specified; D64.9 Anemia, unspecified; E11.22 Type 2 diabetes mellitus with diabetic chronic kidney disease; E87.5 Hyperkalemia; G30.9 Alzheimer's disease, unspecified; F02.80 Dementia in other diseases classified elsewhere, unspecified severity, without behavioral disturbance, psychotic disturbance, mood disturbance, and anxiety; F25.9 Schizoaffective disorder, unspecified; I25.10 Atherosclerotic heart disease of native coronary artery without angina pectoris; I27.20 Pulmonary hypertension, unspecified; I44.30 Unspecified atrioventricular block; I48.91 Unspecified atrial fibrillation; I50.9 Heart failure, unspecified; N18.6 End stage renal disease; N20.0 Calculus of kidney; R56.9 Unspecified convulsions; Z51.5 Encounter for palliative care; Z86.73 Personal history of transient ischemic attack (TIA), and cerebral infarction without residual deficits; Z87.01 Personal history of pneumonia (recurrent); Z87.891 Personal history of nicotine dependence; Z95.1 Presence of aortocoronary bypass graft; Z95.5 Presence of coronary angioplasty implant and graft; Z88.1 Allergy status to other antibiotic agents